=== PATIENT | male | born 1965 | race Caucasian/White ===

== ENCOUNTER 2017-03-25 20:25 | Inpatient (IN) | payer BC ==
[2017-03-25] MEDS ORDERED: TYLENOL 325 MG PO STA (21:12)
[2017-03-25] MEDS ORDERED: Sodium Chloride 0.9% 1000 ML 1,000 ML IV STA (21:12)
[2017-03-25] MEDS ORDERED: PHARMACY DOSING REQUIRED: VANCOMYCIN IV ONE (21:12)
[2017-03-25] MEDS ORDERED: Merrem 1 GM 1 G in Sodium Chloride 100ML MINI-BAG PLUS 100 ML IV STA (21:12)
[2017-03-25] MEDS ORDERED: SUBLIMAZE 100 MCG/2 ML IV ONE (21:13)
--- NOTE | 2017-03-25 21:16 | ERPHSYRPT ---
- History of Present Illness Time Seen by Provider: 03/25/17 20:50 Source: patient, family () Patient Subjective Stated Complaint: stated chilliong after taking a shower tonight. pain in right lower leg. states hx cellulitis. painful when you touch it. Triage Nursing Assessment: alert and oriented with c/o fever since 1500 today. denies respiratory or urinary symptoms. right lower leg red and warm to touch painful on palpation. + pedal pulse present. Physician History: CC: fever/chills Hx: 51 y/o male diabetic patient of Dr Pearson. He has hx of cellulitis in the past. He started having chills and rigors at 3PM today. Now has fever. Aching and burning in the right leg with redness. No cough, urinary problems. He feels fatigue and tired. Some headache. No bites or wounds. Symptoms severe. Timing/Duration: today Severity: severe Allergies/Adverse Reactions: Penicillins Allergy (Verified 02/10/16 16:42) Home Medications: Aspirin 81 gm Chew [Baby Aspirin 81 mg Chew] 1 tab PO DAILY 11/06/15 [ History] Glimepiride 4 mg [Amaryl 4 mg] 1 tablet PO DAILY 11/06/15 [History] Metformin HCl 500 mg [Glucophage 500 MG] 2 tab PO BID 11/06/15 [History] Escitalopram Oxalate [Lexapro] 20 mg PO HS 11/10/15 [History] Glucosam/Chond/Collagen/Hyalur [Glucosamine Chondroitin Cap] 1,000 mg PO BID [History] Lisinopril/Hydrochlorothiazide [Lisinopril-Hctz 20-12.5 mg Tab] 1 tab PO DAILY 02/10/16 [History] Metoprolol Succinate 50 mg [Toprol Xl 50 MG] 1 tab PO DAILY 02/10/16 [ History] Hx Tetanus, Diphtheria Vaccination/Date Given: Yes Hx Influenza Vaccination/Date Given: No Hx Pneumococcal Vaccination/Date Given: No - Review of Systems Constitutional: Fever, Chills, Fatigue, Malaise, Weakness Eyes: No Symptoms Ears, Nose, & Throat: No Symptoms Respiratory: No Cough, No Dyspnea Cardiac: No Chest Pain Abdominal/Gastrointestinal: No Abdominal Pain, No Nausea, No Vomiting, No Diarrhea Genitourinary Symptoms: No Dysuria Musculoskeletal: No Back Pain, No Neck Pain Skin: Cellulitis (right lower leg) Neurological: Headache, No Focal Weakness, No Parasthesia All Other Systems: Reviewed and Negative - Past Medical History Pertinent Past Medical History: Yes Neurological History: No Pertinent History ENT History: No Pertinent History Cardiac History: Hypertension Respiratory History: Sleep Apnea Endocrine Medical History: Diabetes Type II Musculoskeletal History: No Pertinent History GI Medical History: No Pertinent History History: No Pertinent History Psycho-Social History: No Pertinent History Male Reproductive Disorders: No Pertinent History Other Medical History: hx cellulitis in BLE - Past Surgical History Past Surgical History: Yes Neuro Surgical History: No Pertinent History Cardiac: Cardiac Catheterization Respiratory: No Pertinent History Gastrointestinal: No Pertinent History Genitourinary: No Pertinent History Musculoskeletal: No Pertinent History Male Surgical History: No Pertinent History - Social History Smoking Status: Never smoker Exposure to second hand smoke: No Drug Use: none Patient Lives Alone: No - Nursing Vital Signs Nursing Vital Signs: Initial Vital Signs Temperature 102.6 F 03/25/17 20:47 Pulse Rate 100 H 03/25/17 20:47 Respiratory Rate 18 03/25/17 20:47 Blood Pressure 154/79 03/25/17 20:47 O2 Sat by Pulse Oximetry 97 03/25/17 20:47 Pain Scale Pain Intensity 6 - Physical Exam General Appearance: alert Eye Exam: PERRL/EOMI Ears, Nose, Throat Exam: normal ENT inspection, moist mucous membranes Neck Exam: normal inspection, non-tender, supple Respiratory Exam: normal breath sounds, lungs clear Cardiovascular Exam: regular rate/rhythm Gastrointestinal/Abdomen Exam: soft, No tenderness, No distention Male Genitalia Exam: normal genitalia Back Exam: normal inspection, normal range of motion Extremity Exam: other (redness right lower leg with some tenderness) Neurologic Exam: alert, oriented x 3, cooperative, sensation nml, No motor deficits Skin Exam: warm, dry, other (cellulitis right leg) SpO2 Interpretation: normal SpO2: 97 Oxygen Delivery: Room Air - Course Nursing assessment & vital signs reviewed: Yes - Radiology Exams cxr X-ray Interpretation: Reviewed by me, Negative, No Pneumonia Ordered Tests: Active Orders 24 hr Category Date Time Status Manager Style STAT Care 03/25/17 21:07 Active Clean Catch Urine Specimen STAT Care 03/25/17 21:07 Active Pulse Oximetry (ED) STAT Care 03/25/17 21:07 Active Rectal Temperature STAT Care 03/25/17 21:12 Active Saline Lock STAT Care 03/25/17 21:07 Active CHEST 1 VIEW (PORTABLE) Stat Exams 03/25/17 21:07 Taken BLOOD CULTURE Stat Lab 03/25/17 21:24 Received CBC W DIFF Stat Lab 03/25/17 21:00 Completed CK-Creatinine Phosphokinase Stat Lab 03/25/17 21:00 Completed CMP Stat Lab 03/25/17 21:00 Completed CULTURE,URINE Stat Lab 03/25/17 21:45 Received Lactic Acid Stat Lab 03/25/17 21:22 Results PROTIME WITH INR Stat Lab 03/25/17 21:00 Completed PTT Stat Lab 03/25/17 21:00 Completed UA W/ MICROSCOPIC Stat Lab 03/25/17 21:45 Completed VENOUS BLOOD GAS Stat Lab 03/25/17 21:22 Completed Medication Summary Generic Name Dose Route Start Last Admin Trade Name Freq PRN Reason Stop Dose Admin Sodium Chloride 1,000 mls @ 999 mls/hr 03/25/17 21:12 03/25/17 21:25 Sodium Chloride 0.9% 1000 Ml IV 03/25/17 22:12 999 mls/hr .Q1H1M STA Administration Sodium Chloride 1,000 mls @ 999 mls/hr 03/25/17 21:45 03/25/17 21:54 Sodium Chloride 0.9% 1000 Ml IV 03/25/17 23:45 999 mls/hr .Q1H1M THANG Administration Lactated Ringer's 1,000 mls @ 999 mls/hr 03/25/17 22:00 Lactated Ringers IV 03/26/17 01:00 .Q1H1M THANG Vancomycin HCl 250 mls @ 250 mls/hr 03/25/17 22:00 Vancomycin 1gm/ Ns 250ml IV 03/25/17 23:59 Q1H THANG Discontinued Medications Generic Name Dose Route Start Last Admin Trade Name Freq PRN Reason Stop Dose Admin Acetaminophen 975 mg 03/25/17 21:12 03/25/17 21:26 Tylenol 325 Mg PO 03/25/17 21:13 975 mg STAT STA Administration Acetaminophen Confirm 03/25/17 21:19 Tylenol 325 Mg Administered 03/25/17 21:20 Dose 975 mg .ROUTE .STK-MED ONE Fentanyl Citrate 50 mcg 03/25/17 21:13 03/25/17 21:26 Sublimaze 100 Mcg/2 Ml IV 03/25/17 21:14 50 mcg STAT ONE Administration Fentanyl Citrate Confirm 03/25/17 21:19 Sublimaze 100 Mcg/2 Ml Administered 03/25/17 21:20 Dose 100 mcg .ROUTE .STK-MED ONE Hydromorphone HCl 1 mg 03/25/17 21:59 Hydromorphone 1 Mg/Ml Ampule IV 03/25/17 22:00 STAT ONE Meropenem 1 g/ Sodium Chloride 100 mls @ 200 mls/hr 03/25/17 21:12 03/25/17 21:26 IV 03/25/17 21:41 200 mls/hr STAT STA Administration Sodium Chloride Confirm 03/25/17 21:19 Sodium Chloride 0.9% 1000 Ml Administered 03/25/17 21:20 Dose 1,000 mls @ ud .ROUTE .STK-MED ONE Sodium Chloride Confirm 03/25/17 21:20 Sodium Chloride 0.9% 100 Ml Ivpb Administered 03/25/17 21:21 Dose 100 mls @ ud IV .STK-MED ONE Insulin Aspart 10 unit 03/25/17 21:53 Novolog Insulin SQ 03/25/17 21:54 STAT ONE Meropenem Confirm 03/25/17 21:19 Merrem 1 Gm Administered 03/25/17 21:20 Dose 1 g IV .STK-MED ONE Non-Formulary Medication 1 each 03/25/17 21:12 Pharmacy Dosing Required: Vancomycin IV 03/25/17 21:13 STAT ONE Lab/Rad Data: Laboratory Result Diagrams 03/25/17 21:00 03/25/17 21:00 Laboratory Results 03/25/17 03/25/17 03/25/17 Range/Units 21:45 21:22 21:22 WBC (4.0-10.5) K/mm3 RBC (4.1-5.6) M/mm3 Hgb (12.5-18.0) gm/dl Hct (42-50) % MCV (78-100) fl MCH (26-32) pg MCHC (32-36) g/dl RDW (11.5-14.0) % Plt Count (150-450) K/mm3 MPV (6-9.5) fl Gran % (36.0-66.0) % Lymphocytes % (24.0-44.0) % Monocytes % (0.0-12.0) % Eosinophils % (0.00-5.0) % Basophils % (0.0-0.4) % Basophils # (0-0.4) INR (0.8-3.0) APTT (24.1-36.1) SECONDS VBG pH 7.37 (7.32-7.42) VBG pCO2 at Pat Temp 40 L (42-55) mm/Hg VBG pO2 at Pat Temp 32 (25-40) mm/Hg VBG HCO3 23.1 (22-28) meq/L VBG O2 Sat (Andrés) 66.8 L (95-100) VBG Base Excess -2.0 (-2.0-2.0) VBG Hemoglobin 16.7 VBG Carboxyhemoglobin 1.5 (0.0-6.9) % T HGB POC Potassium 4.0 (3.5-5.1) Sodium (136-145) mEq/L Potassium (3.5-5.1) mEq/L Chloride (98-107) mEq/L Carbon Dioxide (21-32) mEq/L Anion Gap (5-15) MEQ/L BUN (9-20) mg/dL Creatinine (0.55-1.30) mg/dl Estimated GFR ML/MIN Glucose (70-110) MG/DL Lactic Acid 4.4 H (0.4-2.0) Calcium (8.5-10.1) mg/dL Total Bilirubin (0.2-1.0) mg/dL AST (15-37) U/L ALT (12-78) U/L Alkaline Phosphatase (46-116) U/L Creatine Kinase (39-308) U/L Serum Total Protein (6.4-8.2) gm/dL Albumin (3.4-5.0) g/dL Ur Collection Type VOID Urine Color LT.YELLOW (YELLOW) Urine Appearance CLEAR (CLEAR) Urine pH 5.0 (5-6) Ur Specific [place] 1.010 (1.005-1.025) Urine Protein TRACE (Negative) Urine Ketones NEGATIVE (NEGATIVE) Urine Blood 50 (0-5) Dre/ul Urine Nitrite NEGATIVE (NEGATIVE) Urine Bilirubin NEGATIVE (NEGATIVE) Urine Urobilinogen NORMAL (0-1) mg/dL Ur Leukocyte Esterase 1+ (NEGATIVE) Urine Microscopic RBC 2-5 (0-2) /HPF Urine Microscopic WBC 2-5 (0-5) /HPF Ur Epithelial Cells FEW (FEW) /HPF Urine Bacteria RARE (NEGATIVE) /HPF Urine Sperm PRESENT (NEGATIVE) /HPF Urine Glucose 1000 (NEGATIVE) mg/dL Specimen Received 03/25/17 2145 03/25/17 03/25/17 03/25/17 Range/Units 21:00 21:00 21:00 WBC (4.0-10.5) K/mm3 RBC (4.1-5.6) M/mm3 Hgb (12.5-18.0) gm/dl Hct (42-50) % MCV (78-100) fl MCH (26-32) pg MCHC (32-36) g/dl RDW (11.5-14.0) % Plt Count (150-450) K/mm3 MPV (6-9.5) fl Gran % (36.0-66.0) % Lymphocytes % (24.0-44.0) % Monocytes % (0.0-12.0) % Eosinophils % (0.00-5.0) % Basophils % (0.0-0.4) % Basophils # (0-0.4) INR 1.04 (0.8-3.0) APTT 31.2 (24.1-36.1) SECONDS VBG pH (7.32-7.42) VBG pCO2 at Pat Temp (42-55) mm/Hg VBG pO2 at Pat Temp (25-40) mm/Hg VBG HCO3 (22-28) meq/L VBG O2 Sat (Andrés) (95-100) VBG Base Excess (-2.0-2.0) VBG Hemoglobin VBG Carboxyhemoglobin (0.0-6.9) % T HGB POC Potassium (3.5-5.1) Sodium 135 L (136-145) mEq/L Potassium 3.6 (3.5-5.1) mEq/L Chloride 100 (98-107) mEq/L Carbon Dioxide 22.3 (21-32) mEq/L Anion Gap 16.2 H (5-15) MEQ/L BUN 20 (9-20) mg/dL Creatinine 1.40 H (0.55-1.30) mg/dl Estimated GFR 57 ML/MIN Glucose 368 H (70-110) MG/DL Lactic Acid (0.4-2.0) Calcium 8.7 (8.5-10.1) mg/dL Total Bilirubin 0.40 (0.2-1.0) mg/dL AST 15 (15-37) U/L ALT 19 (12-78) U/L Alkaline Phosphatase 100 (46-116) U/L Creatine Kinase 86 (39-308) U/L Serum Total Protein 6.9 (6.4-8.2) gm/dL Albumin 3.6 (3.4-5.0) g/dL Ur Collection Type Urine Color (YELLOW) Urine Appearance (CLEAR) Urine pH (5-6) Ur Specific [place] (1.005-1.025) Urine Protein (Negative) Urine Ketones (NEGATIVE) Urine Blood (0-5) Dre/ul Urine Nitrite (NEGATIVE) Urine Bilirubin (NEGATIVE) Urine Urobilinogen (0-1) mg/dL Ur Leukocyte Esterase (NEGATIVE) Urine Microscopic RBC (0-2) /HPF Urine Microscopic WBC (0-5) /HPF Ur Epithelial Cells (FEW) /HPF Urine Bacteria (NEGATIVE) /HPF Urine Sperm (NEGATIVE) /HPF Urine Glucose (NEGATIVE) mg/dL Specimen Received 03/25/17 Range/Units 21:00 WBC 18.5 H (4.0-10.5) K/mm3 RBC 5.31 (4.1-5.6) M/mm3 Hgb 15.5 (12.5-18.0) gm/dl Hct 47.9 (42-50) % MCV 90.2 (78-100) fl MCH 29.2 (26-32) pg MCHC 32.4 (32-36) g/dl RDW 14.0 (11.5-14.0) % Plt Count 140 L (150-450) K/mm3 MPV 10.8 H (6-9.5) fl Gran % 90.8 H (36.0-66.0) % Lymphocytes % 4.3 L (24.0-44.0) % Monocytes % 4.4 (0.0-12.0) % Eosinophils % 0.2 (0.00-5.0) % Basophils % 0.3 (0.0-0.4) % Basophils # 0.05 (0-0.4) INR (0.8-3.0) APTT (24.1-36.1) SECONDS VBG pH (7.32-7.42) VBG pCO2 at Pat Temp (42-55) mm/Hg VBG pO2 at Pat Temp (25-40) mm/Hg VBG HCO3 (22-28) meq/L VBG O2 Sat (Andrés) (95-100) VBG Base Excess (-2.0-2.0) VBG Hemoglobin VBG Carboxyhemoglobin (0.0-6.9) % T HGB POC Potassium (3.5-5.1) Sodium (136-145) mEq/L Potassium (3.5-5.1) mEq/L Chloride (98-107) mEq/L Carbon Dioxide (21-32) mEq/L Anion Gap (5-15) MEQ/L BUN (9-20) mg/dL Creatinine (0.55-1.30) mg/dl Estimated GFR ML/MIN Glucose (70-110) MG/DL Lactic Acid (0.4-2.0) Calcium (8.5-10.1) mg/dL Total Bilirubin (0.2-1.0) mg/dL AST (15-37) U/L ALT (12-78) U/L Alkaline Phosphatase (46-116) U/L Creatine Kinase (39-308) U/L Serum Total Protein (6.4-8.2) gm/dL Albumin (3.4-5.0) g/dL Ur Collection Type Urine Color (YELLOW) Urine Appearance (CLEAR) Urine pH (5-6) Ur Specific [place] (1.005-1.025) Urine Protein (Negative) Urine Ketones (NEGATIVE) Urine Blood (0-5) Dre/ul Urine Nitrite (NEGATIVE) Urine Bilirubin (NEGATIVE) Urine Urobilinogen (0-1) mg/dL Ur Leukocyte Esterase (NEGATIVE) Urine Microscopic RBC (0-2) /HPF Urine Microscopic WBC (0-5) /HPF Ur Epithelial Cells (FEW) /HPF Urine Bacteria (NEGATIVE) /HPF Urine Sperm (NEGATIVE) /HPF Urine Glucose (NEGATIVE) mg/dL Specimen Received - Progress Progress Note: 03/25/17 22:04 Pt has sepsis and cellulitis right leg. The redness is sore but not worsening on recheck inspection at this time. He is receiving 30ml/kg crystalloid IVF bolus for sepsis with lactic acid over 4. Explained situation and plan to pt and . Merrem and Vanco given. Cultures given. Called Dr Naqvi for [place] and will admit to IP ICU. Discussed with .: Driss Will see patient in: hospital (full admit) Counseled pt/family regarding: lab results, diagnosis, need for follow-up, rad results - Departure Time of Disposition: 22:06 Departure Disposition: In-patient Admission (ICU Dr Pearson) Clinical Impression: Cellulitis of right leg, Type 2 diabetes mellitus Sepsis Qualifiers: Sepsis type: sepsis due to unspecified organism Qualified Code(s): A41.9 - Sepsis, unspecified organism Condition: Serious Critical Care Time: Yes Critical Care Time(excluding separately billable procedures): 30-74 minutes Referrals: GERALDINE PEARSON MD [Primary Care Provider] -
[2017-03-25] MEDS ORDERED: Merrem 1 GM IV ONE (21:19)
[2017-03-25] MEDS ORDERED: Sodium Chloride 0.9% 1000 ML 1,000 ML ONE (21:19)
[2017-03-25] MEDS ORDERED: TYLENOL 325 MG ONE (21:19)
[2017-03-25] MEDS ORDERED: SUBLIMAZE 100 MCG/2 ML ONE (21:19)
[2017-03-25] MEDS ORDERED: Sodium Chloride 0.9% 100 ML IVPB 100 ML IV ONE (21:20)
[2017-03-25 21:28] LABS: Lactic Acid 4.4 (0.4-2.0)
[2017-03-25 21:28] LABS: BASOPHIL % 0.3 % (0.0-0.4); Eosinophil % 0.2 % (0.00-5.0); Granulocytes % 90.8 % (36.0-66.0); Lymphocytes % 4.3 % (24.0-44.0); Mean Cell Volume 90.2 fl (78-100); Mean Corpuscular Hemoglobin 29.2 pg (26-32); Mean Platelet Volume 10.8 fl (6-9.5); Monocytes % 4.4 % (0.0-12.0); Platelet Count 140 K/mm3 (150-450); Red Blood Count 5.31 M/mm3 (4.1-5.6); White Blood Count 18.5 K/mm3 (4.0-10.5)
[2017-03-25 21:29] LABS: VBG CARBOXYHEMOGLOBIN 1.5 % T HGB (0.0-6.9); VBG HCO3- 23.1 meq/L (22-28); VBG HEMOGLOBIN 16.7; VBG O2 SATURATION 66.8 (95-100); VBG pH 7.37 (7.32-7.42)
[2017-03-25] MEDS ORDERED: Sodium Chloride 0.9% 1000 ML 2,000 ML ONE (21:42)
[2017-03-25 21:48] LABS: ALBUMIN 3.6 g/dL (3.4-5.0); ANION GAP 16.2 MEQ/L (5-15); BILIRUBIN,TOTAL 0.4 mg/dL (0.2-1.0); Carbon Dioxide 22.3 mEq/L (21-32); Potassium 3.6 mEq/L (3.5-5.1); Total Protein 6.9 gm/dL (6.4-8.2)
[2017-03-25 21:49] LABS: PTT 31.2 SECONDS (24.1-36.1)
[2017-03-25 21:50] LABS: INR 1.04 (0.8-3.0); PROTIME 11.6 SECONDS (8.83-12.87)
[2017-03-25] MEDS ORDERED: NovoLOG Insulin SQ ONE (21:53)
[2017-03-25] MEDS: Sodium Chloride 0.9% 1000 ML 1,000 ML IV SCH ×2 (21:54→22:33)
[2017-03-25 21:56] LABS: Bacteria RARE /HPF (NEGATIVE); Bilirubin NEGATIVE (NEGATIVE); Blood 50 Ery/ul (0-5); COMPLETE URINE MICROSCOPIC? YES; Collection Type VOID; Epithelial Cells FEW /HPF (FEW); Glucose 1000 mg/dL (NEGATIVE); Leukocyte Esterase 1+ (NEGATIVE)
[2017-03-25] MEDS ORDERED: Lactated Ringers 3,000 ML IV ONE (21:56)
[2017-03-25] MEDS ORDERED: Hydromorphone 1 mg/ml Ampule IV ONE (21:59)
[2017-03-25] MEDS ORDERED: Vancomycin 1GM/ Ns 250ML*** 500 ML IV ONE (22:02)
[2017-03-25] MEDS ORDERED: NovoLOG Insulin ONE (22:03)
[2017-03-25] MEDS: Vancomycin 1GM/ Ns 250ML*** 250 ML IV SCH (22:06)
[2017-03-25] MEDS ORDERED: Hydromorphone 1 mg/ml Ampule ONE (22:32)
[2017-03-25] MEDS: Lactated Ringers 1,000 ML IV SCH ×3 (22:40→23:22)
[2017-03-26 00:02] LABS: Lactic Acid 2.1 (0.4-2.0)
[2017-03-26] MEDS ORDERED: DILAUDID 2 MG INJECTION IV PRN (00:35)
[2017-03-26] MEDS: Vancomycin 1GM/ Ns 250ML*** 250 ML IV SCH ×2 (01:10→03:01)
[2017-03-26] MEDS: PHARMACY DOSING REQUIRED: VANCOMYCIN IV ONE ×2 (03:03→23:48)
[2017-03-26] MEDS: Sodium Chloride 0.9% W/ 20 mEq KCl/LITER 1,000 ML IV SCH ×2 (03:06→20:12)
[2017-03-26] MEDS: TYLENOL 325 MG PO PRN ×2 (04:03→17:16)
[2017-03-26 05:43] LABS: BASOPHIL % 0.2 % (0.0-0.4); Granulocytes % 90.7 % (36.0-66.0); Lymphocytes % 5.1 % (24.0-44.0); Mean Corpuscular Hemoglobin 29.2 pg (26-32); Mean Platelet Volume 10.7 fl (6-9.5); Platelet Count 128 K/mm3 (150-450); Red Cell Distribution Width 14.2 % (11.5-14.0); White Blood Count 17.8 K/mm3 (4.0-10.5)
[2017-03-26 05:49] LABS: ALBUMIN 3.2 g/dL (3.4-5.0); ALKALINE PHOSPHATASE 84 U/L (46-116); ANION GAP 13.9 MEQ/L (5-15); BLOOD UREA NITROGEN 13 mg/dL (9-20); CHLORIDE 104 mEq/L (98-107); Carbon Dioxide 25.3 mEq/L (21-32); Glucose 202 MG/DL (70-110); Potassium 3.5 mEq/L (3.5-5.1); SGOT/AST 13 U/L (15-37); SGPT/ALT 15 U/L (12-78); SODIUM 140 mEq/L (136-145); Total Protein 5.9 gm/dL (6.4-8.2)
[2017-03-26] MEDS ORDERED: MOTRIN 400 MG PO ONE (06:30)
[2017-03-26] MEDS: Merrem 1 GM 1 G in Sodium Chloride 100ML MINI-BAG PLUS 100 ML IV SCH ×3 (07:05→22:00)
[2017-03-26] MEDS: VANCOCIN 1 GM VIAL*** 1.75 GM in Sodium Chloride 0.9% 500 ML 500 ML IV SCH ×3 (08:02→23:48)
[2017-03-26] MEDS ORDERED: Nitrostat 0.4 MG Tablet SL PRN (08:25)
--- NOTE | 2017-03-26 08:44 | PCM.HP ---
History of Present Illness - Chief Complaint Chief Complaint: cellulitis RLE, sepsis History of Present Illness: is a 51 year old male who is morbidly obese with type 2 diabetes. He came to the ER yesterday evening due to fever and acute onset of right lower extremity redness and pain. He denies any recent injury or inciting event. He has had recurrent cellulitis to the lower extremities in the past. He denies cough, UTI symptoms or other associated complaints. He was found to have a fever of 103 and elevated lactic acid in the ER, however he has not had any hypotension, his renal function is normal and he is tolerating po, sitting up and conversant. His right lower leg pain has improved already just being treated overnight for the cellulitis. - Review of Systems Constitutional: Fever, Chills Respiratory: No Cough, No Short Of Breath Cardiac: No Chest Pain, No Edema, No Syncope Abdominal/Gastrointestinal: No Abdominal Pain, No Nausea, No Vomiting, No Diarrhea Musculoskeletal: No Fall, No Injury, No Joint Redness Skin: Cellulitis Neurological: No Dizziness, No Focal Weakness, No Sensory Changes All Other Systems: Reviewed and Negative Medications & Allergies Home Medications: Home Medication List Aspirin 81 gm Chew [Baby Aspirin 81 mg Chew] 81 mg PO QHS 11/06/15 [ History Confirmed 03/26/17] Glimepiride 4 mg [Amaryl 4 mg] 4 mg PO QHS 11/06/15 [History Confirmed 03/04] Metformin HCl 500 mg [Glucophage 500 MG] 1,000 mg PO BID 11/06/15 [ History Confirmed 03/26/17] Escitalopram Oxalate [Lexapro] 20 mg PO DAILY 11/10/15 [History Confirmed ] Glucosam/Chond/Collagen/Hyalur [Glucosamine Chondroitin Cap] 1,000 mg PO BID [History Confirmed 03/26/17] Lisinopril/Hydrochlorothiazide [Lisinopril-Hctz 20-12.5 mg Tab] 12.5 mg PO BID 02/10/16 [History Confirmed 03/26/17] Amlodipine Besylate 5 mg [Norvasc 5 mg] 5 mg PO BID 03/26/17 [History Confirmed 03/26/17] Atorvastatin Calcium 40 mg PO QHS 03/26/17 [History Confirmed 03/26/17] Empagliflozin [Jardiance] 10 mg PO QHS 03/26/17 [History Confirmed 03/26/17] Isosorbide Mononitrate [Isosorbide Mononitrate ER] 60 mg PO QHS 03/26/17 [ History Confirmed 03/26/17] Metoprolol Succinate 50 mg PO QHS 03/26/17 [History Confirmed 03/26/17] Nitroglycerin 0.4 mg SL UD PRN 03/26/17 [History Confirmed 03/26/17] Ropinirole HCl 0.5 mg PO QHS 03/26/17 [History Confirmed 03/26/17] Allergies/Adverse Reactions: Allergies Allergy/AdvReac Type Severity Reaction Status Date / Time Penicillins Allergy Unknown Verified 03/26/17 00:36 - Past Medical History Past Medical History: Yes Neurological History: No Pertinent History ENT History: No Pertinent History Cardiac History: Angina, High Cholesterol, Hypertension Respiratory History: Sleep Apnea Endocrine Medical History: Diabetes Type II Musculoskelatal History: Other GI Medical History: No Pertinent History History: No Pertinent History Pyscho-Social History: Anxiety Male Reproductive Disorders: No Pertinent History Comment: chronic joint pain, restless leg syndrome, cellulitis BLE - Past Surgical History Past Surgical History: Yes Neuro Surgical History: No Pertinent History Cardiac History: Cardiac Catheterization Respiratory Surgery: No Pertinent History GI Surgical History: No Pertinent History Genitourinary Surgical Hx: No Pertinent History Musculskeletal Surgical Hx: No Pertinent History Male Surgical History: No Pertinent History Other Surgical History: heart catheterization appx 1 year ago in [place] revealed 70% blockage - Social History Smoking Status: Never smoker Exposure to second hand smoke: No Alcohol: Occasionally Drug Use: none - Physical Exam Vital Signs: Vital Signs - 24 hr Temp Pulse Resp BP BP Pulse Ox 03/26/17 06:00 100.9 F 90 22 98 03/26/17 04:00 101 F 99 H 14 138/62 98 03/26/17 02:00 99.3 F 95 H 14 125/65 96 03/26/17 01:30 72 18 97 03/26/17 00:05 99.3 F 91 H 24 117/56 98 03/25/17 23:18 78 18 116/74 100 03/25/17 22:41 102.5 F 98 H 20 111/70 94 L 03/25/17 22:06 97 03/25/17 22:03 102.7 F 102 H 20 104/52 94 L 03/25/17 21:19 103 F 03/25/17 21:18 103 F 98 H 20 150/99 98 03/25/17 21:16 98 03/25/17 20:47 102.6 F 100 H 18 154/79 97 General Appearance: no apparent distress, alert, obese Neurologic Exam: alert, oriented x 3, cooperative, normal mood/affect, nml cerebellar function, nml station & gait, sensation nml, No motor deficits Respiratory Exam: normal breath sounds, lungs clear, No respiratory distress Cardiovascular Exam: regular rate/rhythm, normal heart sounds, normal peripheral pulses Gastrointestinal/Abdomen Exam: soft, normal bowel sounds, No tenderness, No mass Skin Exam: other (right anterior lower leg with redness, warmth covering most of the anterior [place] region. no calf tenderness) Results - Labs Lab/Micro Results: Accuchecks Date 03/26/17 Date 03/26/17 Time 02:00 Time 02:00 Accucheck Value: 202 Accucheck Value: 166 Lab Results-Last 24 Hours 03/26/17 03/26/17 03/26/17 Range/Units 05:02 05:02 05:07 WBC 17.8 H (4.0-10.5) K/mm3 RBC 4.90 (4.1-5.6) M/mm3 Hgb 14.3 (12.5-18.0) gm/dl Hct 44.1 (42-50) % MCV 90.0 (78-100) fl MCH 29.2 (26-32) pg MCHC 32.4 (32-36) g/dl RDW 14.2 H (11.5-14.0) % Plt Count 128 L (150-450) K/mm3 MPV 10.7 H (6-9.5) fl Gran % 90.7 H (36.0-66.0) % Lymphocytes % 5.1 L (24.0-44.0) % Monocytes % 4.0 (0.0-12.0) % Eosinophils % 0.0 (0.00-5.0) % Basophils % 0.2 (0.0-0.4) % Basophils # 0.04 (0-0.4) Sodium 140 (136-145) mEq/L Potassium 3.5 (3.5-5.1) mEq/L Chloride 104 (98-107) mEq/L Carbon Dioxide 25.3 (21-32) mEq/L Anion Gap 13.9 (5-15) MEQ/L BUN 13 (9-20) mg/dL Creatinine 1.02 (0.55-1.30) mg/dl Estimated GFR > 60 ML/MIN Glucose 202 H (70-110) MG/DL Lactic Acid 1.3 (0.4-2.0) Calcium 8.3 L (8.5-10.1) mg/dL Total Bilirubin 0.70 (0.2-1.0) mg/dL AST 13 L (15-37) U/L ALT 15 (12-78) U/L Alkaline Phosphatase 84 (46-116) U/L Serum Total Protein 5.9 L (6.4-8.2) gm/dL Albumin 3.2 L (3.4-5.0) g/dL Accuchecks Date 03/26/17 Date 03/26/17 Time 02:00 Time 02:00 Accucheck Value: 202 Accucheck Value: 166 - Other Procedures and Tests Respiratory Therapy 03/26/17 01:41 BiPap/CPAP Assessment ROUTINE Assessment/Plan (1) Sepsis Current Visit: Yes Status: Acute Qualifiers: Sepsis type: sepsis due to unspecified organism Qualified Code(s): A41.9 - Sepsis, unspecified organism Assessment & Plan: patient ok to transfer to med/surg unit today. has been hemodynamically stable, has elevation of wbc on labs but other labs look good. (2) Cellulitis of right leg Current Visit: Yes Status: Acute Assessment & Plan: on vanc/meropenem due to poorly controlled diabetes needs polymicrobial coverage. Code(s): L03.115 - CELLULITIS OF RIGHT LOWER LIMB (3) Type 2 diabetes mellitus Current Visit: Yes Status: Acute Assessment & Plan: a1c was 9.4% on 03/20 plan to add basal insulin daily to current regimen and increase dose of jardiance on discharge.
--- NOTE | 2017-03-26 08:51 | XRAY ---
Indication: Sepsis. Comparison: November 13, 2015. Portable chest remains clear. Heart is not enlarged. Bony thorax intact. No new/acute findings. Impression: Stable nonacute chest.
[2017-03-26] MEDS: NORCO 5/325 MG PO PRN ×2 (09:03→18:19)
[2017-03-26] MEDS ORDERED: LISINOPRIL PO SCH (10:00)
[2017-03-26] MEDS ORDERED: Zestril 20 MG PO SCH (10:00)
[2017-03-26] MEDS ORDERED: hydroDIURIL 25 MG PO SCH (10:00)
[2017-03-26] MEDS: Pepcid 20 MG VIAL IV SCH ×2 (10:00→21:47)
[2017-03-26] MEDS ORDERED: NON-FORMULARY ITEM (Escitalopram Oxalate [Lexapro] 20 MG) PO SCH (10:00)
[2017-03-26] MEDS ORDERED: [UNRECOGNIZED DRUG - OTHER] PO SCH (10:00)
[2017-03-26] MEDS ORDERED: HYDROCHLOROTHIAZIDE PO SCH (10:00)
[2017-03-26] MEDS: Lexapro 10 MG PO SCH (10:03)
[2017-03-26] MEDS: NORVASC 5 MG PO SCH ×2 (10:03→21:47)
[2017-03-26] MEDS: ENOXAPARIN SODIUM SQ SCH (10:04)
[2017-03-26] MEDS: NovoLOG Insulin SQ PRN ×3 (12:10→22:21)
[2017-03-26] MEDS: Imdur 60MG PO SCH (21:47)
[2017-03-26] MEDS: hydroDIURIL 25 MG PO SCH (21:47)
[2017-03-26] MEDS: Zestril 20 MG PO SCH (21:47)
[2017-03-26] MEDS: Toprol Xl 50 MG PO SCH (21:49)
[2017-03-26] MEDS: Requip 0.5 MG PO SCH (21:49)
[2017-03-26] MEDS: ECOTRIN 81 MG PO SCH (21:49)
[2017-03-26] MEDS ORDERED: BABY ASPIRIN 81 MG CHEW PO SCH (22:00)
[2017-03-27] MEDS: NORCO 5/325 MG PO PRN ×3 (04:31→13:28)
[2017-03-27] MEDS: Merrem 1 GM 1 G in Sodium Chloride 100ML MINI-BAG PLUS 100 ML IV SCH ×3 (06:15→21:31)
[2017-03-27 06:37] LABS: BASOPHIL % 0.2 % (0.0-0.4); Eosinophil % 1.4 % (0.00-5.0); Granulocytes % 77.1 % (36.0-66.0); Lymphocytes % 13.2 % (24.0-44.0); Mean Cell Volume 90.7 fl (78-100); Mean Corpuscular Hemoglobin 29.4 pg (26-32); Mean Platelet Volume 10.2 fl (6-9.5); Monocytes % 8.1 % (0.0-12.0); Platelet Count 114 K/mm3 (150-450); Red Blood Count 4.53 M/mm3 (4.1-5.6); White Blood Count 12.5 K/mm3 (4.0-10.5)
[2017-03-27 07:25] LABS: ALBUMIN 2.7 g/dL (3.4-5.0); ALKALINE PHOSPHATASE 74 U/L (46-116); ANION GAP 16.4 MEQ/L (5-15); BLOOD UREA NITROGEN 12 mg/dL (9-20); CHLORIDE 102 mEq/L (98-107); Carbon Dioxide 22.2 mEq/L (21-32); Glucose 150 MG/DL (70-110); Potassium 3.5 mEq/L (3.5-5.1); SGOT/AST 18 U/L (15-37); SGPT/ALT 20 U/L (12-78); SODIUM 137 mEq/L (136-145); Total Protein 6.1 gm/dL (6.4-8.2)
[2017-03-27] MEDS ORDERED: TROUGH DRUG LEVELS IJ ONE (07:30)
[2017-03-27] MEDS: VANCOCIN 1 GM VIAL*** 1.75 GM in Sodium Chloride 0.9% 500 ML 500 ML IV SCH ×3 (08:09→23:23)
[2017-03-27] MEDS: Lantus Insulin SQ SCH (08:10)
[2017-03-27] MEDS ORDERED: Lactated Ringers 1,000 ML IV ONE (08:11)
--- NOTE | 2017-03-27 08:28 | PCM.NOTE ---
Date and Time: 03/27/17822 Subjective Assessment: Pt denies pain currently but RLE is sore posteriorly at times; has appetite for the first time this morning. Overall feeling better than yesterday. - Review of Systems Constitutional: No Fever (last temp 0600 yesterday ) Skin: Cellulitis Objective Exam General Appearance: no apparent distress, alert Neurologic Exam: oriented x 3, cooperative Skin Exam: warm, dry Respiratory Exam: normal breath sounds, lungs clear, No crackles/rales, No rhonchi, No wheezing Cardiovascular Exam: regular rate/rhythm, normal heart sounds, No murmur Extremity Exam: other (RLE with bright red erythema and warmth, decreased per marked lines proximally and distally. generalized edema RLE. no exudate.) OBJECTIVE DATA Vital Signs: Vital Signs - 24 hr Temp Pulse Resp BP Pulse Ox 03/27/17 05:50 97.3 F 81 18 120/60 92 L 03/27/17 04:30 98.5 F 76 18 114/54 96 03/27/17 00:00 98.1 F 77 19 124/68 96 03/26/17 19:45 98.2 F 81 18 138/64 94 L 03/26/17 15:53 98.3 F 86 18 169/79 100 03/26/17 12:00 98.8 F 82 13 147/74 98 Pain Assessment - Last Documented Pain Intensity 2 Pain Scale Used 0-10 Pain Scale Intake and Output: Intake & Output 03/24/17 03/25/17 03/26/17 03/27/17 11:59 11:59 11:59 11:59 Intake Total 6996 2523 Output Total 1200 1100 Balance 5796 1423 Weight 178.8 kg 130.771 kg Lab Results: Accuchecks Date 03/27/17 Date 03/26/17 Date 03/26/17 Time 07:30 Time 16:30 Accucheck Value: 134 Accucheck Value: 192 Accucheck Value: 326 Accucheck Value: 154 Lab Results-Last 24 Hours 03/27/17 03/27/17 03/27/17 Range/Units 06:20 06:20 07:27 WBC 12.5 H (4.0-10.5) K/mm3 RBC 4.53 (4.1-5.6) M/mm3 Hgb 13.3 (12.5-18.0) gm/dl Hct 41.1 L (42-50) % MCV 90.7 (78-100) fl MCH 29.4 (26-32) pg MCHC 32.4 (32-36) g/dl RDW 14.0 (11.5-14.0) % Plt Count 114 L (150-450) K/mm3 MPV 10.2 H (6-9.5) fl Gran % 77.1 H (36.0-66.0) % Lymphocytes % 13.2 L (24.0-44.0) % Monocytes % 8.1 (0.0-12.0) % Eosinophils % 1.4 (0.00-5.0) % Basophils % 0.2 (0.0-0.4) % Basophils # 0.03 (0-0.4) Sodium 137 (136-145) mEq/L Potassium 3.5 (3.5-5.1) mEq/L Chloride 102 (98-107) mEq/L Carbon Dioxide 22.2 (21-32) mEq/L Anion Gap 16.4 H (5-15) MEQ/L BUN 12 (9-20) mg/dL Creatinine 0.81 (0.55-1.30) mg/dl Estimated GFR > 60 ML/MIN Glucose 150 H (70-110) MG/DL Calcium 8.3 L (8.5-10.1) mg/dL Total Bilirubin 0.70 (0.2-1.0) mg/dL AST 18 (15-37) U/L ALT 20 (12-78) U/L Alkaline Phosphatase 74 (46-116) U/L Serum Total Protein 6.1 L (6.4-8.2) gm/dL Albumin 2.7 L (3.4-5.0) g/dL Vancomycin Trough 13.9 (10-20) UG/ML Multi-Disciplinary Progress Notes: Multi-Disciplinary Progress Notes 03/26/17 09:21 Pharmacy Note by CREDIT CASHIER,PHARM Patient presents with sepsis and RLL cellulitis. Pharmacy to dose vancomycin. Patient received 2 gram loading dose upon arrival. Maintenance dose 1.75 grams q8h (weight: 394lbs SCr 1.02) initiated 03/26 @ 0800. Trough to be checked 03/27 @ 0730 (30 min prior to 4th dose). Thank you! Sandra, manager clinical pharmacy Initialized on 03/26/17 09:21 - END OF NOTE Assessment/Plan (1) Cellulitis of right leg Current Visit: Yes Status: Acute Assessment & Plan: On Vancomycin and merropenem, cellulitis advanced very quickly prior to admission but is responding to antibiotics readily. He is overall feeling better. Will d/c the dilaudid prn and give po pain meds as needed. Code(s): L03.115 - CELLULITIS OF RIGHT LOWER LIMB (2) Type 2 diabetes, uncontrolled, with cellulitis of foot Current Visit: Yes Status: Chronic Assessment & Plan: BS 134-326 here. Observe as his diet increases. Code(s): E11.628 - TYPE 2 DIABETES MELLITUS WITH OTHER SKIN COMPLICATIONS; E11.65 - TYPE 2 DIABETES MELLITUS WITH HYPERGLYCEMIA; L03.119 - CELLULITIS OF UNSPECIFIED PART OF LIMB
[2017-03-27] MEDS: Sodium Chloride 0.9% W/ 20 mEq KCl/LITER 1,000 ML IV SCH ×2 (08:41→13:29)
[2017-03-27] MEDS: hydroDIURIL 25 MG PO SCH ×2 (10:08→21:28)
[2017-03-27] MEDS: Lexapro 10 MG PO SCH (10:08)
[2017-03-27] MEDS: NORVASC 5 MG PO SCH ×2 (10:08→21:29)
[2017-03-27] MEDS: ENOXAPARIN SODIUM SQ SCH (10:08)
[2017-03-27] MEDS: Zestril 20 MG PO SCH ×2 (10:08→21:28)
[2017-03-27] MEDS: Pepcid 20 MG VIAL IV SCH ×2 (13:02→21:29)
[2017-03-27] MEDS: NovoLOG Insulin SQ PRN ×3 (13:02→21:39)
[2017-03-27] MEDS: ECOTRIN 81 MG PO SCH (21:27)
[2017-03-27] MEDS: Requip 0.5 MG PO SCH (21:27)
[2017-03-27] MEDS: Toprol Xl 50 MG PO SCH (21:28)
[2017-03-27] MEDS: Imdur 60MG PO SCH (21:29)
[2017-03-28] MEDS: Merrem 1 GM 1 G in Sodium Chloride 100ML MINI-BAG PLUS 100 ML IV SCH ×3 (05:40→23:18)
[2017-03-28] MEDS: Lantus Insulin SQ SCH (07:46)
[2017-03-28] MEDS: VANCOCIN 1 GM VIAL*** 1.75 GM in Sodium Chloride 0.9% 500 ML 500 ML IV SCH ×2 (07:46→16:39)
--- NOTE | 2017-03-28 09:00 | PCM.NOTE ---
Date and Time: 03/28/17 0858 Subjective Assessment: doing much better, erythema improved on right leg. pain is much better. hasn't had a fever Objective Exam General Appearance: no apparent distress, alert Respiratory Exam: normal breath sounds, lungs clear, No respiratory distress Cardiovascular Exam: regular rate/rhythm, normal heart sounds Gastrointestinal/Abdomen Exam: soft, No tenderness, No mass Extremity Exam: other (erythema to right anterior [place], improved to upper aspect. swelling improving) OBJECTIVE DATA Vital Signs: Vital Signs - 24 hr Temp Pulse Resp BP Pulse Ox 03/28/17 07:22 98.5 F 61 18 117/65 95 03/28/17 03:24 97.6 F 69 14 133/60 97 03/28/17 00:00 98.7 F 70 15 115/58 91 L 03/27/17 21:00 98.6 F 69 18 116/63 95 03/27/17 16:55 98.5 F 65 18 115/54 95 03/27/17 11:49 98.3 F 66 18 116/62 94 L Pain Assessment - Last Documented Pain Intensity 0 Pain Scale Used 0-10 Pain Scale Intake and Output: Intake & Output 03/25/17 03/26/17 03/27/17 03/28/17 11:59 11:59 11:59 11:59 Intake Total 6996 2523 3298 Output Total 1200 1100 4300 Balance 5796 1423 -1002 Weight 178.8 kg 130.771 kg Lab Results: Accuchecks Date 03/27/17 Date 03/27/17 Date 03/27/17 Time 22:00 Time 16:30 Time 11:30 Accucheck Value: 288 Accucheck Value: 152 Accucheck Value: 178 Assessment/Plan (1) Sepsis Current Visit: Yes Status: Acute Qualifiers: Sepsis type: sepsis due to unspecified organism Qualified Code(s): A41.9 - Sepsis, unspecified organism Assessment & Plan: urine growing a gram + bug, awaiting c and s. treated for cellulitis as well (2) Cellulitis of right leg Current Visit: Yes Status: Acute Assessment & Plan: continue vanc and meropenem Code(s): L03.115 - CELLULITIS OF RIGHT LOWER LIMB (3) Type 2 diabetes mellitus Current Visit: Yes Status: Resolved
[2017-03-28] MEDS: Lexapro 10 MG PO SCH (10:39)
[2017-03-28] MEDS: ENOXAPARIN SODIUM SQ SCH (10:39)
[2017-03-28] MEDS: NORVASC 5 MG PO SCH ×2 (10:39→22:47)
[2017-03-28] MEDS: Pepcid 20 MG VIAL IV SCH ×2 (10:40→22:47)
[2017-03-28] MEDS: Zestril 20 MG PO SCH ×2 (10:40→22:47)
[2017-03-28] MEDS: hydroDIURIL 25 MG PO SCH ×2 (10:40→22:47)
[2017-03-28] MEDS: NovoLOG Insulin SQ PRN ×3 (11:40→22:45)
[2017-03-28] MEDS: Sodium Chloride 0.9% W/ 20 mEq KCl/LITER 1,000 ML IV SCH (14:17)
[2017-03-28] MEDS: Toprol Xl 50 MG PO SCH (22:47)
[2017-03-28] MEDS: Requip 0.5 MG PO SCH (22:47)
[2017-03-28] MEDS: Imdur 60MG PO SCH (22:47)
[2017-03-28] MEDS: ECOTRIN 81 MG PO SCH (22:47)
[2017-03-29] MEDS: VANCOCIN 1 GM VIAL*** 1.75 GM in Sodium Chloride 0.9% 500 ML 500 ML IV SCH ×4 (00:28→23:24)
[2017-03-29] MEDS: Merrem 1 GM 1 G in Sodium Chloride 100ML MINI-BAG PLUS 100 ML IV SCH ×3 (05:53→21:54)
[2017-03-29 06:21] LABS: BASOPHIL % 0.4 % (0.0-0.4); Eosinophil % 2.6 % (0.00-5.0); Granulocytes % 66.7 % (36.0-66.0); Lymphocytes % 20.4 % (24.0-44.0); Mean Cell Volume 89.6 fl (78-100); Mean Corpuscular Hemoglobin 29.3 pg (26-32); Mean Platelet Volume 10.8 fl (6-9.5); Monocytes % 9.9 % (0.0-12.0); Platelet Count 152 K/mm3 (150-450); Red Blood Count 4.61 M/mm3 (4.1-5.6); Red Cell Distribution Width 13.7 % (11.5-14.0); White Blood Count 7.7 K/mm3 (4.0-10.5)
[2017-03-29 06:32] LABS: ALBUMIN 2.8 g/dL (3.4-5.0); ALKALINE PHOSPHATASE 84 U/L (46-116); ANION GAP 9.8 MEQ/L (5-15); BLOOD UREA NITROGEN 10 mg/dL (9-20); CHLORIDE 102 mEq/L (98-107); Carbon Dioxide 30.8 mEq/L (21-32); Glucose 182 MG/DL (70-110); Potassium 3.6 mEq/L (3.5-5.1); SGOT/AST 14 U/L (15-37); SGPT/ALT 18 U/L (12-78); SODIUM 139 mEq/L (136-145); Total Protein 6.4 gm/dL (6.4-8.2)
[2017-03-29] MEDS: Lantus Insulin SQ SCH (07:39)
--- NOTE | 2017-03-29 08:01 | PCM.NOTE ---
Date and Time: 03/29/17 0759 Subjective Assessment: patient feels like redness worsened to right lower leg overnight. no new complaints Objective Exam General Appearance: no apparent distress, alert Respiratory Exam: normal breath sounds, lungs clear, No respiratory distress Cardiovascular Exam: regular rate/rhythm, normal heart sounds Gastrointestinal/Abdomen Exam: soft, No tenderness, No mass Extremity Exam: other (right lower leg with anterior erythema, warmth) OBJECTIVE DATA Vital Signs: Vital Signs - 24 hr Temp Pulse Resp BP Pulse Ox 03/29/17 06:58 98.5 F 70 22 132/64 97 03/29/17 04:00 97.9 F 68 16 132/69 93 L 03/28/17 23:54 98.5 F 63 17 151/82 95 03/28/17 19:47 98.4 F 73 16 129/74 94 L 03/28/17 16:00 98.0 F 62 18 165/77 99 03/28/17 11:37 98.6 F 66 18 155/80 97 Pain Assessment - Last Documented Pain Intensity 0 Pain Scale Used 0-10 Pain Scale Intake and Output: Intake & Output 03/26/17 03/27/17 03/28/17 03/29/17 11:59 11:59 11:59 11:59 Intake Total 6996 2523 3298 3275 Output Total 1200 1100 4300 Balance 5796 1423 -1002 3275 Weight 178.8 kg 161.479 kg 156.971 kg 176.357 kg Lab Results: Accuchecks Date 03/29/17 Date 03/29/17 Date 03/28/17 Date 03/28/17 Time 07:32 Time 22:00 Time 16:30 Time 11:30 Accucheck Value: 156 Accucheck Value: 281 Accucheck Value: 205 Accucheck Value: 193 Lab Results-Last 24 Hours 03/29/17 03/29/17 Range/Units 05:15 05:15 WBC 7.7 (4.0-10.5) K/mm3 RBC 4.61 (4.1-5.6) M/mm3 Hgb 13.5 (12.5-18.0) gm/dl Hct 41.3 L (42-50) % MCV 89.6 (78-100) fl MCH 29.3 (26-32) pg MCHC 32.7 (32-36) g/dl RDW 13.7 (11.5-14.0) % Plt Count 152 (150-450) K/mm3 MPV 10.8 H (6-9.5) fl Gran % 66.7 H (36.0-66.0) % Lymphocytes % 20.4 L (24.0-44.0) % Monocytes % 9.9 (0.0-12.0) % Eosinophils % 2.6 (0.00-5.0) % Basophils % 0.4 (0.0-0.4) % Basophils # 0.03 (0-0.4) Sodium 139 (136-145) mEq/L Potassium 3.6 (3.5-5.1) mEq/L Chloride 102 (98-107) mEq/L Carbon Dioxide 30.8 (21-32) mEq/L Anion Gap 9.8 (5-15) MEQ/L BUN 10 (9-20) mg/dL Creatinine 0.73 (0.55-1.30) mg/dl Estimated GFR > 60 ML/MIN Glucose 182 H (70-110) MG/DL Calcium 8.7 (8.5-10.1) mg/dL Total Bilirubin 0.60 (0.2-1.0) mg/dL AST 14 L (15-37) U/L ALT 18 (12-78) U/L Alkaline Phosphatase 84 (46-116) U/L Serum Total Protein 6.4 (6.4-8.2) gm/dL Albumin 2.8 L (3.4-5.0) g/dL Radiology Exams: Radiology Procedures Category Date Time Status PICC LINE PLACEMENT Routine Exams 03/29/17 Ordered Multi-Disciplinary Progress Notes: Multi-Disciplinary Progress Notes 03/28/17 09:45 (created 03/28/17 12:41) Case Management Note by Gracia Correa INDEPENDENT WITH ALL ADL'S. DECLINED NEEDS FOR DISCHARGE. WILL FOLLOW. Initialized on 03/28/17 12:41 - END OF NOTE Assessment/Plan (1) Sepsis Current Visit: Yes Status: Acute Qualifiers: Sepsis type: sepsis due to unspecified organism Qualified Code(s): A41.9 - Sepsis, unspecified organism (2) Cellulitis of right leg Current Visit: Yes Status: Acute Assessment & Plan: continue vanc/meropenem, will get a PICC line today Code(s): L03.115 - CELLULITIS OF RIGHT LOWER LIMB (3) Type 2 diabetes mellitus Current Visit: Yes Status: Resolved
[2017-03-29] MEDS: Lexapro 10 MG PO SCH (08:53)
[2017-03-29] MEDS: hydroDIURIL 25 MG PO SCH ×2 (08:53→21:46)
[2017-03-29] MEDS: ENOXAPARIN SODIUM SQ SCH (08:54)
[2017-03-29] MEDS: NORVASC 5 MG PO SCH ×2 (08:55→21:46)
[2017-03-29] MEDS: Zestril 20 MG PO SCH ×2 (08:55→21:46)
[2017-03-29] MEDS: Pepcid 20 MG VIAL IV SCH ×2 (08:55→21:50)
[2017-03-29] MEDS: Sodium Chloride 0.9% W/ 20 mEq KCl/LITER 1,000 ML IV SCH (08:57)
--- NOTE | 2017-03-29 10:52 | XRAY ---
Indication: Ultrasound guidance for PICC line placement. Initial sonographic imaging of the right upper extremity was performed for localization of patent veins. A patent basilic vein identified above the elbow. Ultrasound guidance was then used for PICC line insertion. Full PICC line insertion is reported separately.
--- NOTE | 2017-03-29 10:54 | XRAY ---
Indication: Long-term IV access and therapy for right leg infection. Informed consent obtained. Patient was placed on the fluoroscopic table in a supine position. Initial sonographic imaging of the right upper extremity was performed for localization of patent veins. The right upper extremity was then prepped and draped in sterile fashion. Tourniquet applied. 1% lidocaine plain used for local anesthesia. Using ultrasound guidance and a micropuncture needle, a basilic vein above the elbow was successfully percutaneously cannulized. A floppy tip 0.018 guidewire inserted. Tourniquet released. Needle was exchanged for a 5 [place] dilator peel-away sheath catheter. Ultimately a 5 [place] double-lumen PICC line was cut to length and inserted over a longer 0.018 guidewire with the tip positioned in the SVC using fluoroscopic guidance. Guidewire removed. Both ports flushed with heparinized saline. Catheter was secured. Postoperative instructions and orders given. Patient discharged in good condition. Impression: Technically successful right upper extremity PICC line placement using ultrasound and fluoroscopic guidance. No immediate complications. Catheter length 50 cm. Approximately 2 cc blood loss. 0.7 minute of fluoroscopy used.
[2017-03-29] MEDS: NovoLOG Insulin SQ PRN ×2 (15:51→21:54)
[2017-03-29] MEDS: ECOTRIN 81 MG PO SCH (21:46)
[2017-03-29] MEDS: Requip 0.5 MG PO SCH (21:46)
[2017-03-29] MEDS: Imdur 60MG PO SCH (21:46)
[2017-03-29] MEDS: Toprol Xl 50 MG PO SCH (21:46)
[2017-03-30] MEDS: Merrem 1 GM 1 G in Sodium Chloride 100ML MINI-BAG PLUS 100 ML IV SCH (05:32)
[2017-03-30] MEDS ORDERED: TROUGH DRUG LEVELS IJ ONE (07:30)
[2017-03-30] MEDS: NovoLOG Insulin SQ PRN ×2 (07:32→10:57)
[2017-03-30] MEDS: Lantus Insulin SQ SCH (07:37)
[2017-03-30 07:45] VITALS: O2SAT 97
[2017-03-30 07:52] LABS: Mean Cell Volume 88.9 fl (78-100); Mean Corpuscular Hemoglobin 29.5 pg (26-32); Mean Platelet Volume 9.7 fl (6-9.5); Platelet Count 154 K/mm3 (150-450); Red Blood Count 4.51 M/mm3 (4.1-5.6); Red Cell Distribution Width 13.5 % (11.5-14.0); White Blood Count 8.2 K/mm3 (4.0-10.5)
[2017-03-30 08:15] LABS: BAND 9 % (0.0-2.0); Basophil 1 % (0.0-1.0); Eosinophil 1 % (0.00-3.0); Metamyelocyte 1 %; Total Cells Counted 100
[2017-03-30 08:16] LABS: Platelet Estimate NORMAL (NORMAL)
[2017-03-30 08:57] LABS: ANION GAP 12.5 MEQ/L (5-15); BLOOD UREA NITROGEN 11 mg/dL (9-20); CHLORIDE 100 mEq/L (98-107); Carbon Dioxide 28.7 mEq/L (21-32); Glucose 213 MG/DL (70-110); Potassium 3.9 mEq/L (3.5-5.1); SODIUM 137 mEq/L (136-145)
--- NOTE | 2017-03-30 09:00 | PCM.DS ---
Discharge Summary Date of Admission: 03/26/17 00:06 Admitting Physician: GERALDINE PEARSON Consults: Consults on Case 03/26/17 18:56 Nutritional Consult ROUTINE Primary Care Provider: GERALDINE PEARSON Allergies Allergies Penicillins Allergy (Unknown, Verified 03/26/17 00:36) Hospital Summary - Hospital Course Hospital Course: patient was admitted with cellulitis to [facility], has cleared dramatically, still has some erythema and swelling to right lower lower leg. - Vitals & Intake/Output Vital Signs: Vital Signs Temperature 98.3 F 03/30/17 07:43 Pulse Rate 77 03/30/17 07:43 Respiratory Rate 18 03/30/17 07:43 Blood Pressure 147/83 03/30/17 07:43 O2 Sat by Pulse Oximetry 97 03/30/17 07:43 Intake & Output: Intake & Output 03/27/17 03/28/17 03/29/17 03/30/17 11:59 11:59 11:59 11:59 Intake Total 2523 3298 3275 4624 Output Total 1100 4300 0 Balance 1423 -1002 3275 4624 Weight 161.479 kg 156.971 kg 176.357 kg 176.266 kg - Lab Result Diagrams: 03/30/17 07:40 03/29/17 05:15 Lab Results-Last 24 Hrs: Accuchecks Date 03/30/17 Date 03/30/17 Date 03/29/17 Date 03/29/17 Time 07:41 Time 22:00 Time 15:51 Time 10:50 Accucheck Value: 221 Accucheck Value: 232 Accucheck Value: 206 Accucheck Value: 176 Lab Results-Last 24 Hours 03/30/17 03/30/17 Range/Units 07:40 07:40 WBC 8.2 (4.0-10.5) K/mm3 RBC 4.51 (4.1-5.6) M/mm3 Hgb 13.3 (12.5-18.0) gm/dl Hct 40.1 L (42-50) % MCV 88.9 (78-100) fl MCH 29.5 (26-32) pg MCHC 33.2 (32-36) g/dl RDW 13.5 (11.5-14.0) % Plt Count 154 (150-450) K/mm3 MPV 9.7 H (6-9.5) fl Segmented Neutrophils 60 (36.-66.) % Band Neutrophils 9 H (0.0-2.0) % Lymphocytes (Manual) 21 L (24-44) % Monocytes (Manual) 7 (0.0-12.0) % Eosinophils (Manual) 1 (0.00-3.0) % Basophils (Manual) 1 (0.0-1.0) % Metamyelocytes 1 % Differential Comment NORMAL Platelet Estimate NORMAL (NORMAL) Vancomycin Trough 16.7 (10-20) UG/ML Micro Results-Entire Visit: Accuchecks Date 03/30/17 Date 03/30/17 Date 03/29/17 Date 03/29/17 Time 07:41 Time 22:00 Time 15:51 Time 10:50 Accucheck Value: 221 Accucheck Value: 232 Accucheck Value: 206 Accucheck Value: 176 - Radiology Exams Ordered Rad Exams-Entire Visit: Radiology Procedures Category Date Time Status GUIDE FOR VASCULAR ACCESS [US] Routine Exams 03/29/17 Completed PICC LINE PLACEMENT Routine Exams 03/29/17 Completed - Procedures and Test Procedures and Tests throughout Hospitalization: Therapy Orders & Screens 03/26/17 01:41 BiPap/CPAP Assessment ROUTINE Comment: CPAP 14 PER HOME USE Discharge Exam General Appearance: no apparent distress, alert Respiratory Exam: normal breath sounds, lungs clear, No respiratory distress Cardiovascular Exam: regular rate/rhythm, normal heart sounds Gastrointestinal/Abdomen Exam: soft, No tenderness, No mass Extremity Exam: other (right lower leg with moderate erythema and warmth) Final Diagnosis/Problem List - Final Discharge Diagnosis/Problem (1) Sepsis Current Visit: Yes Status: Acute (2) Cellulitis of right leg Current Visit: Yes Status: Acute Assessment & Plan: send home today on IV vanc for 7 days at outpatient infusion (3) Type 2 diabetes mellitus Current Visit: Yes Status: Resolved - Discharge Disposition: Home, Self-Care Condition: Good Prescriptions: Continue Metformin HCl 500 mg [Glucophage 500 MG] 1,000 mg PO BID Aspirin 81 gm Chew [Baby Aspirin 81 mg Chew] 81 mg PO QHS Glimepiride 4 mg [Amaryl 4 mg] 4 mg PO QHS Escitalopram Oxalate [Lexapro] 20 mg PO DAILY Lisinopril/Hydrochlorothiazide [Lisinopril-Hctz 20-12.5 mg Tab] 12.5 mg PO BID Glucosam/Chond/Collagen/Hyalur [Glucosamine Chondroitin Cap] 1,000 mg PO BID Empagliflozin [Jardiance] 10 mg PO QHS Atorvastatin Calcium 40 mg PO QHS Metoprolol Succinate 50 mg PO QHS Isosorbide Mononitrate [Isosorbide Mononitrate ER] 60 mg PO QHS Amlodipine Besylate 5 mg [Norvasc 5 mg] 5 mg PO BID Nitroglycerin 0.4 mg SL UD PRN PRN Reason: Chest Pain Ropinirole HCl 0.5 mg PO QHS Additional Instructions: continue outpatient vanc in infusion center for 7 days, f/u with Heavenly Samuels next week in office Follow up with: CHELSY SAMUELS NP [NON-STAFF PHY W/O PRIVILEGES] - 1 Week Forms: Patient Portal Information
[2017-03-30] MEDS: VANCOCIN 1 GM VIAL*** 1.75 GM in Sodium Chloride 0.9% 500 ML 500 ML IV SCH (09:35)
[2017-03-30] MEDS: NORVASC 5 MG PO SCH (09:36)
[2017-03-30] MEDS: Lexapro 10 MG PO SCH (09:36)
[2017-03-30] MEDS: hydroDIURIL 25 MG PO SCH (09:36)
[2017-03-30] MEDS: Pepcid 20 MG VIAL IV SCH (09:36)
[2017-03-30] MEDS: Zestril 20 MG PO SCH (09:36)
[2017-03-30] MEDS: ENOXAPARIN SODIUM SQ SCH (09:40)
[2017-03-30] MEDS: NORCO 5/325 MG PO PRN (10:47)
--- NOTE | 2017-03-30 11:13 | XRAY ---
Indication: Right leg cellulitis. Two-dimensional sonogram and color Doppler imaging of the major venous vessels of the right leg was performed. Comparison: None No thrombus seen in the examined deep venous vessels of the right leg including greater saphenous vein. Veins demonstrate normal compressibility. Venous waveforms are normal with and without augmentation. Impression: Right leg negative for DVT.
[2017-03-30 12:23] VITALS: BP 134/87; PULSE 89
== END 2017-03-30 13:45 | disposition home or self-care (01) | DRG 872 ==
LOC: ED 20:25 → ICU 03-26 00:06 → MED SURG 03-26 13:37
PROVIDERS: ADMIT Family Medicine; ATTEND Family Medicine
DX: A41.9 Sepsis, unspecified organism (principal); L03.115 Cellulitis of right lower limb; E11.9 Type 2 diabetes mellitus without complications; M79.604 Pain in right leg; Z45.2 Encounter for adjustment and management of vascular access device; Z79.899 Other long term (current) drug therapy; Z79.84 Long term (current) use of oral hypoglycemic drugs
CPT/HCPCS: 36000; 36415; 36569; 71010; 76937; 77001; 80048; 80053; 80202; 81000; 82550; 82805; 82962; 83605; 85025; 85610; 85730; 87040; 87077; 87086; 93041; 93971; 94760; 96360; 96361; 96365; 96366; 96367; 96372; 96374; 96375; 99285; C1769; J1170; J1642; J1650; J3010; J3370; A9270-GY

== ENCOUNTER 2019-06-05 10:31 | Inpatient (IN) | payer BC ==
--- NOTE | 2019-06-05 10:35 | ERPHSYRPT ---
- History of Present Illness Time Seen by Provider: 06/05/19 10:34 Source: patient Exam Limitations: no limitations Physician History: 53 y/o morbidly obese diabetic white male with h/o htn, chronic venous stasis dz and recurrent bilat lower ext cellulitis presents with fever last pm of 101 F , n/v and generalized muscle aches. this am he noticed right lower leg redness. he feels he either he has the flu, cellulitis or both. he denies cp, denies soa , and denies abd pain. pt does not recall if he took anything for his fever. pt on eliquis. Timing/Duration: yesterday Cough Quality/Degree: no cough Possible Cause: occasional episodes Associated Symptoms: fever, chills, muscle aches, No chest pain/soreness, No cough Allergies/Adverse Reactions: Penicillins Allergy (Unknown, Verified 06/05/19 10:52) Home Medications: Aspirin 81 gm Chew [Baby Aspirin 81 mg Chew] 81 mg PO QHS 11/06/15 [ History] Metformin HCl 500 mg [Glucophage 500 MG] 1,000 mg PO BID 11/06/15 [History ] Escitalopram Oxalate [Lexapro] 20 mg PO DAILY 11/10/15 [History] Glucosam/Chond/Collagen/Hyalur [Glucosamine Chondroitin Cap] 1,000 mg PO BID [History] Lisinopril/Hydrochlorothiazide [Lisinopril-Hctz 20-12.5 mg Tab] 12.5 mg PO BID 02/10/16 [History] Atorvastatin Calcium 40 mg PO QHS 03/26/17 [History] Isosorbide Mononitrate [Isosorbide Mononitrate ER] 60 mg PO QHS 03/26/17 [ History] Metoprolol Succinate 50 mg PO QHS 03/26/17 [History] Nitroglycerin 0.4 mg SL UD PRN 03/26/17 [History] Ropinirole HCl 0.5 mg PO QHS 03/26/17 [History] Albuterol Sulfate [Proair Hfa] 8.5 gm IH Q6HPRN PRN 06/05/19 [History] Apixaban [Eliquis] 5 mg PO HS 06/05/19 [History] Empagliflozin [Jardiance] 25 mg PO QAM 06/05/19 [History] Exenatide Microspheres [Bydureon Bcise] 2 mg SQ WEEKLY 06/05/19 [History] Insulin Glargine [Lantus Insulin] 50 unit SQ BID 06/05/19 [History] Hx Tetanus, Diphtheria Vaccination/Date Given: Yes Hx Influenza Vaccination/Date Given: No Hx Pneumococcal Vaccination/Date Given: No - Review of Systems Constitutional: Fever Eyes: No Symptoms Ears, Nose, & Throat: No Symptoms Respiratory: No Symptoms Cardiac: No Symptoms Abdominal/Gastrointestinal: Nausea, Vomiting Genitourinary Symptoms: No Symptoms Musculoskeletal: No Symptoms Skin: Cellulitis (right lower leg) Psychological: No Symptoms Endocrine: No Symptoms Hematologic/Lymphatic: No Symptoms Immunological/Allergic: No Symptoms All Other Systems: Reviewed and Negative - Past Medical History Pertinent Past Medical History: Yes Neurological History: No Pertinent History ENT History: No Pertinent History Cardiac History: Angina, High Cholesterol, Hypertension Respiratory History: Sleep Apnea Endocrine Medical History: Diabetes Type II Musculoskeletal History: Other GI Medical History: No Pertinent History History: No Pertinent History Psycho-Social History: Anxiety Male Reproductive Disorders: No Pertinent History Other Medical History: chronic joint pain, restless leg syndrome, cellulitis BLE - Past Surgical History Past Surgical History: Yes Neuro Surgical History: No Pertinent History Cardiac: Cardiac Catheterization Respiratory: No Pertinent History Gastrointestinal: No Pertinent History Genitourinary: No Pertinent History Musculoskeletal: No Pertinent History Male Surgical History: No Pertinent History Other Surgical History: heart catheterization appx 1 year ago in [place] revealed 70% blockage - Social History Smoking Status: Never smoker Exposure to second hand smoke: No Drug Use: none Patient Lives Alone: No - Nursing Vital Signs Nursing Vital Signs: Initial Vital Signs Temperature 98.2 F 06/05/19 10:37 Pulse Rate 109 H 06/05/19 10:37 Respiratory Rate 20 06/05/19 10:37 Blood Pressure 146/84 06/05/19 10:37 O2 Sat by Pulse Oximetry 100 06/05/19 10:37 Pain Scale Pain Intensity 3 - Physical Exam General Appearance: mild distress, alert, anxiety, obese Eye Exam: PERRL/EOMI, eyes nml inspection Ears, Nose, Throat Exam: normal ENT inspection, moist mucous membranes Neck Exam: normal inspection, non-tender, supple, full range of motion Respiratory Exam: normal breath sounds, lungs clear, airway intact, No chest tenderness, No respiratory distress Cardiovascular Exam: regular rate/rhythm, normal heart sounds, normal peripheral pulses Gastrointestinal/Abdomen Exam: soft, normal bowel sounds, No tenderness Rectal Exam: not done Extremity Exam: normal inspection, normal range of motion, pelvis stable Neurologic Exam: alert, oriented x 3, 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, 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 Skin Exam: warm, other (cellulitis with central mid pretibial eschar) Lymphatic Exam: No adenopathy SpO2 Interpretation: normal O2 Delivery: Room Air Ordered Tests: Active Orders 24 hr Category Date Time Status IV Insertion STAT Care 06/05/19 10:51 Active Pulse Oximetry (ED) STAT Care 06/05/19 10:51 Active AMYLASE Stat Lab 06/05/19 10:51 Completed BLOOD CULTURE Stat Lab 06/05/19 10:52 Ordered CBC W DIFF Stat Lab 06/05/19 10:51 Completed CMP Stat Lab 06/05/19 10:51 Completed LIPASE Stat Lab 06/05/19 10:51 Completed Lactic Acid Stat Lab 06/05/19 11:18 Results Manual Differential NC Stat Lab 06/05/19 10:51 Completed [place] Screen Stat Lab 06/05/19 Completed UA W/RFX UR CULTURE Stat Lab 06/05/19 10:52 Completed Medication Summary Generic Name Dose Route Start Last Admin Trade Name Freq PRN Reason Stop Dose Admin Sodium Chloride 1,000 mls @ 999 mls/hr 06/05/19 12:04 06/05/19 12:11 Sodium Chloride 0.9% 1000 Ml IV 06/05/19 13:04 999 mls/hr .Q1H1M STA Administration Discontinued Medications Generic Name Dose Route Start Last Admin Trade Name Freq PRN Reason Stop Dose Admin Acetaminophen 650 mg 06/05/19 11:04 06/05/19 11:10 Tylenol 325 Mg PO 06/05/19 11:05 650 mg STAT STA Administration Acetaminophen Confirm 06/05/19 11:07 Tylenol 325 Mg Administered 06/05/19 11:08 Dose 650 mg .ROUTE .STK-MED ONE Sodium Chloride 1,000 mls @ 999 mls/hr 06/05/19 10:51 06/05/19 12:04 Sodium Chloride 0.9% 1000 Ml IV 06/05/19 11:51 Infused .Q1H1M STA Infusion Sodium Chloride Confirm 06/05/19 10:55 Sodium Chloride 0.9% 1000 Ml Administered 06/05/19 10:56 Dose 1,000 mls @ ud .ROUTE .STK-MED ONE Sodium Chloride Confirm 06/05/19 12:04 Sodium Chloride 0.9% 1000 Ml Administered 06/05/19 12:05 Dose 1,000 mls @ ud .ROUTE .STK-MED ONE Ibuprofen 600 mg 06/05/19 11:04 06/05/19 11:10 Motrin 600 Mg PO 06/05/19 11:05 600 mg STAT STA Administration Ibuprofen Confirm 06/05/19 11:07 Motrin 600 Mg Administered 06/05/19 11:08 Dose 600 mg .ROUTE .STK-MED ONE Insulin Human Regular 4 unit 06/05/19 12:12 06/05/19 12:27 Novolin R IV 06/05/19 12:13 4 unit STAT ONE Administration Insulin Human Regular Confirm 06/05/19 12:25 Novolin R Administered 06/05/19 12:26 Dose 1 unit .ROUTE .STK-MED ONE Ondansetron HCl 4 mg 06/05/19 10:51 06/05/19 10:57 Zofran 4 Mg/2 Ml Vial IV 06/05/19 10:52 4 mg STAT ONE Administration Ondansetron HCl Confirm 06/05/19 10:55 Zofran 4 Mg/2 Ml Vial Administered 06/05/19 10:56 Dose 4 mg .ROUTE .STK-MED ONE Lab/Rad Data: Laboratory Result Diagrams 06/05/19 10:51 06/05/19 10:51 Laboratory Results 06/05/19 06/05/19 06/05/19 Range/Units Unknown 11:30 11:18 WBC (4.0-10.5) K/mm3 RBC (4.1-5.6) M/mm3 Hgb (12.5-18.0) gm/dl Hct (42-50) % MCV (78-100) fl MCH (26-32) pg MCHC (32-36) g/dl RDW (11.5-14.0) % Plt Count (150-450) K/mm3 MPV (6-9.5) fl Sodium (137-145) mmol/L Potassium (3.5-5.1) mmol/L Chloride (98-107) mmol/L Carbon Dioxide (22-30) mmol/L Anion Gap (5-15) MEQ/L BUN (9-20) mg/dL Creatinine (0.66-1.25) mg/dL Estimated GFR ML/MIN Glucose (74-106) mg/dL Lactic Acid 4.6 H (0.4-2.0) Calcium (8.4-10.2) mg/dL Total Bilirubin (0.2-1.3) mg/dL AST (17-59) U/L ALT (0-50) U/L Alkaline Phosphatase (38-126) U/L Serum Total Protein (6.3-8.2) g/dL Albumin (3.5-5.0) g/dL Amylase (30-110) U/L Lipase (23-300) U/L Urine Color (YELLOW) Urine Appearance (CLEAR) Urine pH (5-6) Ur Specific [place] (1.005-1.025) Urine Protein (Negative) Urine Ketones (NEGATIVE) Urine Blood (0-5) Dre/ul Urine Nitrite (NEGATIVE) Urine Bilirubin (NEGATIVE) Urine Urobilinogen (0-1) mg/dL Ur Leukocyte Esterase (NEGATIVE) Urine WBC (Auto) (0-5) /HPF Urine RBC (Auto) (0-2) /HPF U Epithel Cells (Auto) (FEW) /HPF Urine Bacteria (Auto) (NEGATIVE) /HPF Urine Culture Reflexed (NO) Urine Glucose (NEGATIVE) mg/dL Monoscreen NEGATIVE (Negative) Influenza Type A Ag NEGATIVE (NEGATIVE) Influenza Type B Ag NEGATIVE (NEGATIVE) RSV (PCR) NEGATIVE (Negative) Group A Strep Antibody POSITIVE (NEGATIVE) 06/05/19 06/05/19 06/05/19 Range/Units 10:52 10:51 10:51 WBC 20.1 H (4.0-10.5) K/mm3 RBC 5.06 (4.1-5.6) M/mm3 Hgb 15.2 (12.5-18.0) gm/dl Hct 46.4 (42-50) % MCV 91.7 (78-100) fl MCH 30.0 (26-32) pg MCHC 32.8 (32-36) g/dl RDW 14.0 (11.5-14.0) % Plt Count 167 (150-450) K/mm3 MPV 10.3 H (6-9.5) fl Sodium 136 L (137-145) mmol/L Potassium 3.6 (3.5-5.1) mmol/L Chloride 96 L (98-107) mmol/L Carbon Dioxide 25 (22-30) mmol/L Anion Gap 17.8 H (5-15) MEQ/L BUN 17 (9-20) mg/dL Creatinine 1.23 (0.66-1.25) mg/dL Estimated GFR > 60.0 ML/MIN Glucose 347 H (74-106) mg/dL Lactic Acid (0.4-2.0) Calcium 9.0 (8.4-10.2) mg/dL Total Bilirubin 0.90 (0.2-1.3) mg/dL AST 27 (17-59) U/L ALT 24 (0-50) U/L Alkaline Phosphatase 90 (38-126) U/L Serum Total Protein 6.7 (6.3-8.2) g/dL Albumin 3.7 (3.5-5.0) g/dL Amylase 30 (30-110) U/L Lipase 74 (23-300) U/L Urine Color YELLOW (YELLOW) Urine Appearance CLEAR (CLEAR) Urine pH 6.0 (5-6) Ur Specific [place] 1.030 (1.005-1.025) Urine Protein NEGATIVE (Negative) Urine Ketones TRACE (NEGATIVE) Urine Blood SMALL (0-5) Dre/ul Urine Nitrite NEGATIVE (NEGATIVE) Urine Bilirubin NEGATIVE (NEGATIVE) Urine Urobilinogen NEGATIVE (0-1) mg/dL Ur Leukocyte Esterase NEGATIVE (NEGATIVE) Urine WBC (Auto) 0-2 (0-5) /HPF Urine RBC (Auto) NONE (0-2) /HPF U Epithel Cells (Auto) NONE (FEW) /HPF Urine Bacteria (Auto) NONE (NEGATIVE) /HPF Urine Culture Reflexed NO (NO) Urine Glucose >=500 (NEGATIVE) mg/dL Monoscreen (Negative) Influenza Type A Ag (NEGATIVE) Influenza Type B Ag (NEGATIVE) RSV (PCR) (Negative) Group A Strep Antibody (NEGATIVE) - Progress Progress: unchanged Air Movement: good Progress Note: 06/05/19 12:[address] mckoy. i reviewed pt hx, labs and condition. he accepts pt for admission Blood Culture(s) Obtained: Yes Antibiotics given: Yes Discussed with : Mikey Counseled pt/family regarding: lab results, diagnosis - Departure Departure Disposition: In-patient Admission Clinical Impression: Cellulitis, Sepsis, Strep pharyngitis Condition: Stable Critical Care Time: Yes Critical Care Time(excluding separately billable procedures): Critical 30-74 mins Referrals: GERALDINE MCKOY MD [Primary Care Provider] -
[2019-06-05] MEDS ORDERED: Zofran 4 MG/2 ML VIAL IV ONE (10:51)
[2019-06-05] MEDS ORDERED: Sodium Chloride 0.9% 1000 ML 1,000 ML IV STA ×2 (10:51→12:04)
[2019-06-05] MEDS ORDERED: Zofran 4 MG/2 ML VIAL ONE (10:55)
[2019-06-05] MEDS ORDERED: Sodium Chloride 0.9% 1000 ML 1,000 ML ONE ×2 (10:55→12:04)
[2019-06-05] MEDS ORDERED: MOTRIN 600 MG PO STA (11:04)
[2019-06-05] MEDS ORDERED: TYLENOL 325 MG PO STA (11:04)
[2019-06-05] MEDS ORDERED: TYLENOL 325 MG ONE (11:07)
[2019-06-05] MEDS ORDERED: MOTRIN 600 MG ONE (11:07)
[2019-06-05 11:19] LABS: Lactic Acid 4.6 (0.4-2.0)
[2019-06-05 11:34] LABS: Hematocrit 46.4 % (42-50); Hemoglobin 15.2 gm/dl (12.5-18.0); Mean Cell Volume 91.7 fl (78-100); Mean Corpuscular Hgb Concent. 32.8 g/dl (32-36); Mean Platelet Volume 10.3 fl (6-9.5); Platelet Count 167 K/mm3 (150-450); Red Blood Count 5.06 M/mm3 (4.1-5.6); White Blood Count 20.1 K/mm3 (4.0-10.5)
[2019-06-05 11:53] LABS: ALBUMIN 3.7 g/dL (3.5-5.0); ALKALINE PHOSPHATASE 90 U/L (38-126); AMYLASE 30 U/L (30-110); ANION GAP 17.8 MEQ/L (5-15); BLOOD UREA NITROGEN 17 mg/dL (9-20); CHLORIDE 96 mmol/L (98-107); Carbon Dioxide 25 mmol/L (22-30); Creatinine 1 1.23 mg/dL (0.66-1.25); Glucose 347 mg/dL (74-106); LIPASE 74 U/L (23-300); Potassium 3.6 mmol/L (3.5-5.1); SGOT/AST 27 U/L (17-59); SODIUM 136 mmol/L (137-145); Total Protein 6.7 g/dL (6.3-8.2)
[2019-06-05 12:00] LABS: SGPT/ALT 24 U/L (0-50)
[2019-06-05 12:08] LABS: Group A Strep POSITIVE (NEGATIVE); INFLUENZA A NEGATIVE (NEGATIVE); INFLUENZA B NEGATIVE (NEGATIVE); RESPIRATORY SYNCTIAL VIRUS NEGATIVE (Negative)
[2019-06-05] MEDS ORDERED: NovoLIN R IV ONE (12:12)
[2019-06-05 12:13] LABS: Appearance CLEAR (CLEAR); Bilirubin NEGATIVE (NEGATIVE); Blood SMALL Ery/ul (0-5); Glucose >=500 mg/dL (NEGATIVE); Ketones TRACE (NEGATIVE); Leukocyte Esterase NEGATIVE (NEGATIVE); Nitrite NEGATIVE (NEGATIVE); Protein,Urine Dip NEGATIVE (Negative); Urobilinogen NEGATIVE mg/dL (0-1); WBC 0-2 /HPF (0-5)
[2019-06-05] MEDS ORDERED: NovoLIN R ONE (12:25)
[2019-06-05 12:39] LABS: BAND 8 % (0.0-2.0); Lymphocytes 8 % (24-44); Monocyte 2 % (0.0-12.0); Neutrophils 82 % (36.-66.); Total Cells Counted 100
[2019-06-05 12:40] LABS: Platelet Estimate NORMAL (NORMAL)
[2019-06-05] MEDS ORDERED: Vancomycin 1GM/ Ns 250ML*** 1 GM/250 ML IVPB IV ONE (12:40)
[2019-06-05] MEDS ORDERED: Vancomycin 1GM/ Ns 250ML*** 250 ML IV ONE (12:43)
[2019-06-05] MEDS ORDERED: Zofran 4 MG/2 ML VIAL IV PRN (13:29)
[2019-06-05] MEDS: Sodium Chloride 0.9% 1000 ML 1,000 ML IV SCH ×2 (13:42→21:14)
[2019-06-05] MEDS: NovoLOG Insulin SQ PRN ×3 (13:44→21:57)
[2019-06-05 13:56] LABS: Lactic Acid 2.4 (0.4-2.0)
[2019-06-05] MEDS ORDERED: Nitrostat 0.4 MG Tablet SL PRN (15:30)
[2019-06-05] MEDS ORDERED: Ventolin Hfa MDI IH PRN (15:30)
[2019-06-05] MEDS ORDERED: PROVENTIL COMMON CANISTER IH PRN (15:40)
[2019-06-05] MEDS: TYLENOL 325 MG PO PRN (16:59)
[2019-06-05] MEDS: NORCO 5/325 MG PO PRN (20:01)
[2019-06-05] MEDS: Toprol Xl 50 MG PO SCH (21:11)
[2019-06-05] MEDS: Requip 0.5 MG PO SCH (21:11)
[2019-06-05] MEDS: ELIQUIS 2.5 MG TABLET PO SCH (21:11)
[2019-06-05] MEDS: Imdur 60MG PO SCH (21:11)
[2019-06-05] MEDS: hydroDIURIL 25 MG PO SCH (21:12)
[2019-06-05] MEDS: Lantus Insulin SQ SCH (21:13)
[2019-06-05] MEDS: Zestril 20 MG PO SCH (21:13)
[2019-06-05] MEDS: ECOTRIN 81 MG PO SCH (21:13)
[2019-06-05] MEDS: VANCOMYCIN 2 GRAM/400 ML BAG 2 GM/400 ML PIGGYBACK IV SCH (21:15)
[2019-06-05] MEDS ORDERED: BABY ASPIRIN 81 MG CHEW PO SCH (22:00)
[2019-06-05] MEDS ORDERED: Vancomycin 1GM/ Ns 250ML*** 1 GM/250 ML IVPB IV SCH (22:00)
[2019-06-05] MEDS ORDERED: [UNRECOGNIZED DRUG - OTHER] PO SCH (22:00)
[2019-06-05] MEDS ORDERED: LISINOPRIL PO SCH (22:00)
[2019-06-05] MEDS ORDERED: HYDROCHLOROTHIAZIDE PO SCH (22:00)
[2019-06-06] MEDS: TYLENOL 325 MG PO PRN (00:08)
[2019-06-06] MEDS: NORCO 5/325 MG PO PRN (04:19)
[2019-06-06 05:12] LABS: Hematocrit 44.4 % (42-50); Hemoglobin 14.2 gm/dl (12.5-18.0); Mean Cell Volume 91.9 fl (78-100); Mean Corpuscular Hemoglobin 29.4 pg (26-32); Platelet Count 147 K/mm3 (150-450); Red Blood Count 4.83 M/mm3 (4.1-5.6); White Blood Count 15.2 K/mm3 (4.0-10.5)
[2019-06-06 06:05] LABS: ALBUMIN 3.3 g/dL (3.5-5.0); ALKALINE PHOSPHATASE 79 U/L (38-126); ANION GAP 13.3 MEQ/L (5-15); BLOOD UREA NITROGEN 15 mg/dL (9-20); CHLORIDE 101 mmol/L (98-107); Calcium 8.3 mg/dL (8.4-10.2); Carbon Dioxide 28 mmol/L (22-30); Creatinine 1 1.24 mg/dL (0.66-1.25); Glucose 137 mg/dL (74-106); Potassium 3.7 mmol/L (3.5-5.1); SGOT/AST 41 U/L (17-59); SGPT/ALT 23 U/L (0-50); SODIUM 139 mmol/L (137-145); Total Protein 6.5 g/dL (6.3-8.2)
[2019-06-06] MEDS: Sodium Chloride 0.9% 1000 ML 1,000 ML IV SCH ×2 (06:42→16:00)
[2019-06-06 07:18] LABS: BAND 35 % (0.0-2.0); Basophil 1 % (0.0-1.0); Eosinophil 1 % (0.00-3.0); Lymphocytes 7 % (24-44); Monocyte 5 % (0.0-12.0); Neutrophils 51 % (36.-66.); Total Cells Counted 100
[2019-06-06 07:19] LABS: ANISOCYTOSIS 1+; Platelet Estimate NORMAL (NORMAL); Polychromasia 1+
[2019-06-06 07:20] LABS: Absolute Neutrophil Ct (ANC) 12.9 (1.4-6.9)
--- NOTE | 2019-06-06 08:39 | PCM.HP ---
History of Present Illness - Chief Complaint Chief Complaint: cellulitis History of Present Illness: is a 53 year old male who presented with sudden onset of headache, fever/chills and right lower leg pain. he has a history of cellulitis in the past, no known injury or inciting event. - Review of Systems Constitutional: Fever, Chills Respiratory: No Cough, No Short Of Breath Cardiac: No Chest Pain, No Edema, No Syncope Abdominal/Gastrointestinal: No Symptoms Musculoskeletal: Other (right lower leg redness and pain) Neurological: Headache Medications & Allergies Home Medications: Home Medication List Aspirin 81 gm Chew [Baby Aspirin 81 mg Chew] 81 mg PO QHS 11/06/15 [ History Confirmed 06/05/19] Metformin HCl 500 mg [Glucophage 500 MG] 1,000 mg PO BID 11/06/15 [ History Confirmed 06/05/19] Escitalopram Oxalate [Lexapro] 20 mg PO DAILY 11/10/15 [History Confirmed ] Glucosam/Chond/Collagen/Hyalur [Glucosamine Chondroitin Cap] 1,000 mg PO BID [History Confirmed 06/05/19] Lisinopril/Hydrochlorothiazide [Lisinopril-Hctz 20-12.5 mg Tab] 12.5 mg PO BID 02/10/16 [History Confirmed 06/05/19] Atorvastatin Calcium 40 mg PO QHS 03/26/17 [History Confirmed 06/05/19] Isosorbide Mononitrate [Isosorbide Mononitrate ER] 60 mg PO QHS 03/26/17 [ History Confirmed 06/05/19] Metoprolol Succinate 50 mg PO QHS 03/26/17 [History Confirmed 06/05/19] Nitroglycerin 0.4 mg SL UD PRN 03/26/17 [History Confirmed 06/05/19] Ropinirole HCl 0.5 mg PO QHS 03/26/17 [History Confirmed 06/05/19] Albuterol Sulfate [Proair Hfa] 8.5 gm IH Q6HPRN PRN 06/05/19 [History Confirmed 06/05/19] Apixaban [Eliquis] 5 mg PO HS 06/05/19 [History Confirmed 06/05/19] Empagliflozin [Jardiance] 25 mg PO QAM 06/05/19 [History Confirmed 06/05/19] Exenatide Microspheres [Bydureon Bcise] 2 mg SQ WEEKLY 06/05/19 [History Confirmed 06/05/19] Insulin Glargine [Lantus Insulin] 50 unit SQ BID 06/05/19 [History Confirmed 06/05/19] Allergies/Adverse Reactions: Allergies Allergy/AdvReac Type Severity Reaction Status Date / Time Penicillins Allergy Unknown Verified 06/05/19 10:52 - Past Medical History Past Medical History: Yes Neurological History: No Pertinent History ENT History: No Pertinent History Cardiac History: Angina, High Cholesterol, Hypertension Respiratory History: Sleep Apnea Endocrine Medical History: Diabetes Type II Musculoskelatal History: Other GI Medical History: No Pertinent History History: No Pertinent History Pyscho-Social History: Anxiety Male Reproductive Disorders: No Pertinent History Comment: chronic joint pain, restless leg syndrome, cellulitis BLE - Past Surgical History Past Surgical History: Yes Neuro Surgical History: No Pertinent History Cardiac History: Cardiac Catheterization Respiratory Surgery: No Pertinent History GI Surgical History: No Pertinent History Genitourinary Surgical Hx: No Pertinent History Musculskeletal Surgical Hx: No Pertinent History Male Surgical History: No Pertinent History Other Surgical History: heart catheterization appx 1 year ago in [place] revealed 70% blockage - Social History Smoking Status: Never smoker Exposure to second hand smoke: No Alcohol: None Drug Use: none - Physical Exam Vital Signs: Vital Signs - 24 hr Temp Pulse Resp BP Pulse Ox 06/06/19 08:00 97.4 F 88 18 118/56 99 06/06/19 04:00 99.4 F 89 20 133/67 98 06/06/19 00:00 101.3 F 88 20 106/50 96 06/05/19 20:11 98 H 18 92 L 06/05/19 19:32 100.9 F 85 19 151/81 98 06/05/19 16:50 100.5 F 90 22 120/58 96 06/05/19 15:50 90 16 97 06/05/19 13:54 98.4 F 88 22 119/61 95 06/05/19 13:29 95 06/05/19 13:24 98.4 F 88 22 119/61 95 06/05/19 13:03 80 20 109/59 95 06/05/19 12:51 85 20 108/71 95 06/05/19 11:57 101.3 F 97 H 18 118/70 97 06/05/19 11:03 100 06/05/19 10:37 98.2 F 109 H 20 146/84 100 General Appearance: no apparent distress, obese Neurologic Exam: alert, oriented x 3 Respiratory Exam: normal breath sounds, lungs clear, No respiratory distress Cardiovascular Exam: regular rate/rhythm, normal heart sounds, normal peripheral pulses Gastrointestinal/Abdomen Exam: soft, normal bowel sounds, No tenderness, No mass Extremity Exam: other (right lower leg/calf redness, warmth. no significant swelling, no calf tenderness) Wound Assessment: Skin/Wound Assessment Wound/Incision Assessment Start: 06/05/19 14: 00 Text: Status: Active Freq: Q6H Protocol: Document 06/06/19 02:00 GLORIA (Rec: 06/06/19 04:25 GLORIA [id number]) Wound/Incision Assessment Right Lower Calf Wound Assessment Shift Assessment Wound Type cellulitis Wound Stage Non Pressure Wound Drainage Amount None General Appearance Open to air Comment Area red, edematous, warm to touch, area circled Results - Labs Lab/Micro Results: Accuchecks Accucheck Value: 166 Accucheck Value: 306 Lab Results-Last 24 Hours 06/05/19 06/05/19 06/05/19 Range/Units 10:51 10:51 10:52 WBC 20.1 H (4.0-10.5) K/mm3 RBC 5.06 (4.1-5.6) M/mm3 Hgb 15.2 (12.5-18.0) gm/dl Hct 46.4 (42-50) % MCV 91.7 (78-100) fl MCH 30.0 (26-32) pg MCHC 32.8 (32-36) g/dl RDW 14.0 (11.5-14.0) % Plt Count 167 (150-450) K/mm3 MPV 10.3 H (6-9.5) fl Absolute Granulocytes (1.4-6.9) Segmented Neutrophils 82 H (36.-66.) % Band Neutrophils 8 H (0.0-2.0) % Lymphocytes (Manual) 8 L (24-44) % Monocytes (Manual) 2 (0.0-12.0) % Eosinophils (Manual) (0.00-3.0) % Basophils (Manual) (0.0-1.0) % Platelet Estimate NORMAL (NORMAL) RBC Morphology NORMAL Polychromasia Anisocytosis Sodium 136 L (137-145) mmol/L Potassium 3.6 (3.5-5.1) mmol/L Chloride 96 L (98-107) mmol/L Carbon Dioxide 25 (22-30) mmol/L Anion Gap 17.8 H (5-15) MEQ/L BUN 17 (9-20) mg/dL Creatinine 1.23 (0.66-1.25) mg/dL Estimated GFR > 60.0 ML/MIN Glucose 347 H (74-106) mg/dL Lactic Acid (0.4-2.0) Calcium 9.0 (8.4-10.2) mg/dL Total Bilirubin 0.90 (0.2-1.3) mg/dL AST 27 (17-59) U/L ALT 24 (0-50) U/L Alkaline Phosphatase 90 (38-126) U/L Serum Total Protein 6.7 (6.3-8.2) g/dL Albumin 3.7 (3.5-5.0) g/dL Amylase 30 (30-110) U/L Lipase 74 (23-300) U/L Urine Color YELLOW (YELLOW) Urine Appearance CLEAR (CLEAR) Urine pH 6.0 (5-6) Ur Specific [place] 1.030 (1.005-1.025) Urine Protein NEGATIVE (Negative) Urine Ketones TRACE (NEGATIVE) Urine Blood SMALL (0-5) Dre/ul Urine Nitrite NEGATIVE (NEGATIVE) Urine Bilirubin NEGATIVE (NEGATIVE) Urine Urobilinogen NEGATIVE (0-1) mg/dL Ur Leukocyte Esterase NEGATIVE (NEGATIVE) Urine WBC (Auto) 0-2 (0-5) /HPF Urine RBC (Auto) NONE (0-2) /HPF U Epithel Cells (Auto) NONE (FEW) /HPF Urine Bacteria (Auto) NONE (NEGATIVE) /HPF Urine Culture Reflexed NO (NO) Urine Glucose >=500 (NEGATIVE) mg/dL Monoscreen (Negative) Influenza Type A Ag (NEGATIVE) Influenza Type B Ag (NEGATIVE) RSV (PCR) (Negative) Group A Strep Antibody (NEGATIVE) 06/05/19 06/05/19 06/05/19 Range/Units 11:18 11:30 13:40 WBC (4.0-10.5) K/mm3 RBC (4.1-5.6) M/mm3 Hgb (12.5-18.0) gm/dl Hct (42-50) % MCV (78-100) fl MCH (26-32) pg MCHC (32-36) g/dl RDW (11.5-14.0) % Plt Count (150-450) K/mm3 MPV (6-9.5) fl Absolute Granulocytes (1.4-6.9) Segmented Neutrophils (36.-66.) % Band Neutrophils (0.0-2.0) % Lymphocytes (Manual) (24-44) % Monocytes (Manual) (0.0-12.0) % Eosinophils (Manual) (0.00-3.0) % Basophils (Manual) (0.0-1.0) % Platelet Estimate (NORMAL) RBC Morphology Polychromasia Anisocytosis Sodium (137-145) mmol/L Potassium (3.5-5.1) mmol/L Chloride (98-107) mmol/L Carbon Dioxide (22-30) mmol/L Anion Gap (5-15) MEQ/L BUN (9-20) mg/dL Creatinine (0.66-1.25) mg/dL Estimated GFR ML/MIN Glucose (74-106) mg/dL Lactic Acid 4.6 H 2.4 H (0.4-2.0) Calcium (8.4-10.2) mg/dL Total Bilirubin (0.2-1.3) mg/dL AST (17-59) U/L ALT (0-50) U/L Alkaline Phosphatase (38-126) U/L Serum Total Protein (6.3-8.2) g/dL Albumin (3.5-5.0) g/dL Amylase (30-110) U/L Lipase (23-300) U/L Urine Color (YELLOW) Urine Appearance (CLEAR) Urine pH (5-6) Ur Specific [place] (1.005-1.025) Urine Protein (Negative) Urine Ketones (NEGATIVE) Urine Blood (0-5) Dre/ul Urine Nitrite (NEGATIVE) Urine Bilirubin (NEGATIVE) Urine Urobilinogen (0-1) mg/dL Ur Leukocyte Esterase (NEGATIVE) Urine WBC (Auto) (0-5) /HPF Urine RBC (Auto) (0-2) /HPF U Epithel Cells (Auto) (FEW) /HPF Urine Bacteria (Auto) (NEGATIVE) /HPF Urine Culture Reflexed (NO) Urine Glucose (NEGATIVE) mg/dL Monoscreen (Negative) Influenza Type A Ag NEGATIVE (NEGATIVE) Influenza Type B Ag NEGATIVE (NEGATIVE) RSV (PCR) NEGATIVE (Negative) Group A Strep Antibody POSITIVE (NEGATIVE) 06/05/19 06/05/19 06/06/19 Range/Units 21:05 Unknown 04:30 WBC 15.2 H (4.0-10.5) K/mm3 RBC 4.83 (4.1-5.6) M/mm3 Hgb 14.2 (12.5-18.0) gm/dl Hct 44.4 (42-50) % MCV 91.9 (78-100) fl MCH 29.4 (26-32) pg MCHC 32.0 (32-36) g/dl RDW 14.0 (11.5-14.0) % Plt Count 147 L (150-450) K/mm3 MPV 10.0 H (6-9.5) fl Absolute Granulocytes 12.9 H (1.4-6.9) Segmented Neutrophils 51 (36.-66.) % Band Neutrophils 35 H (0.0-2.0) % Lymphocytes (Manual) 7 L (24-44) % Monocytes (Manual) 5 (0.0-12.0) % Eosinophils (Manual) 1 (0.00-3.0) % Basophils (Manual) 1 (0.0-1.0) % Platelet Estimate NORMAL (NORMAL) RBC Morphology ABNORMAL Polychromasia 1+ Anisocytosis 1+ Sodium (137-145) mmol/L Potassium (3.5-5.1) mmol/L Chloride (98-107) mmol/L Carbon Dioxide (22-30) mmol/L Anion Gap (5-15) MEQ/L BUN (9-20) mg/dL Creatinine (0.66-1.25) mg/dL Estimated GFR ML/MIN Glucose (74-106) mg/dL Lactic Acid 1.2 (0.4-2.0) Calcium (8.4-10.2) mg/dL Total Bilirubin (0.2-1.3) mg/dL AST (17-59) U/L ALT (0-50) U/L Alkaline Phosphatase (38-126) U/L Serum Total Protein (6.3-8.2) g/dL Albumin (3.5-5.0) g/dL Amylase (30-110) U/L Lipase (23-300) U/L Urine Color (YELLOW) Urine Appearance (CLEAR) Urine pH (5-6) Ur Specific [place] (1.005-1.025) Urine Protein (Negative) Urine Ketones (NEGATIVE) Urine Blood (0-5) Dre/ul Urine Nitrite (NEGATIVE) Urine Bilirubin (NEGATIVE) Urine Urobilinogen (0-1) mg/dL Ur Leukocyte Esterase (NEGATIVE) Urine WBC (Auto) (0-5) /HPF Urine RBC (Auto) (0-2) /HPF U Epithel Cells (Auto) (FEW) /HPF Urine Bacteria (Auto) (NEGATIVE) /HPF Urine Culture Reflexed (NO) Urine Glucose (NEGATIVE) mg/dL Monoscreen NEGATIVE (Negative) Influenza Type A Ag (NEGATIVE) Influenza Type B Ag (NEGATIVE) RSV (PCR) (Negative) Group A Strep Antibody (NEGATIVE) 06/06/19 Range/Units 04:30 WBC (4.0-10.5) K/mm3 RBC (4.1-5.6) M/mm3 Hgb (12.5-18.0) gm/dl Hct (42-50) % MCV (78-100) fl MCH (26-32) pg MCHC (32-36) g/dl RDW (11.5-14.0) % Plt Count (150-450) K/mm3 MPV (6-9.5) fl Absolute Granulocytes (1.4-6.9) Segmented Neutrophils (36.-66.) % Band Neutrophils (0.0-2.0) % Lymphocytes (Manual) (24-44) % Monocytes (Manual) (0.0-12.0) % Eosinophils (Manual) (0.00-3.0) % Basophils (Manual) (0.0-1.0) % Platelet Estimate (NORMAL) RBC Morphology Polychromasia Anisocytosis Sodium 139 (137-145) mmol/L Potassium 3.7 (3.5-5.1) mmol/L Chloride 101 (98-107) mmol/L Carbon Dioxide 28 (22-30) mmol/L Anion Gap 13.3 (5-15) MEQ/L BUN 15 (9-20) mg/dL Creatinine 1.24 (0.66-1.25) mg/dL Estimated GFR > 60.0 ML/MIN Glucose 137 H (74-106) mg/dL Lactic Acid (0.4-2.0) Calcium 8.3 L (8.4-10.2) mg/dL Total Bilirubin 0.80 (0.2-1.3) mg/dL AST 41 (17-59) U/L ALT 23 (0-50) U/L Alkaline Phosphatase 79 (38-126) U/L Serum Total Protein 6.5 (6.3-8.2) g/dL Albumin 3.3 L (3.5-5.0) g/dL Amylase (30-110) U/L Lipase (23-300) U/L Urine Color (YELLOW) Urine Appearance (CLEAR) Urine pH (5-6) Ur Specific [place] (1.005-1.025) Urine Protein (Negative) Urine Ketones (NEGATIVE) Urine Blood (0-5) Dre/ul Urine Nitrite (NEGATIVE) Urine Bilirubin (NEGATIVE) Urine Urobilinogen (0-1) mg/dL Ur Leukocyte Esterase (NEGATIVE) Urine WBC (Auto) (0-5) /HPF Urine RBC (Auto) (0-2) /HPF U Epithel Cells (Auto) (FEW) /HPF Urine Bacteria (Auto) (NEGATIVE) /HPF Urine Culture Reflexed (NO) Urine Glucose (NEGATIVE) mg/dL Monoscreen (Negative) Influenza Type A Ag (NEGATIVE) Influenza Type B Ag (NEGATIVE) RSV (PCR) (Negative) Group A Strep Antibody (NEGATIVE) Accuchecks Accucheck Value: 166 Accucheck Value: 306 - Other Procedures and Tests Respiratory Therapy 06/05/19 18:26 Respiratory Therapy Assessment DAILY 06/05/19 18:29 BiPap/CPAP ROUTINE Assessment/Plan (1) Cellulitis of right leg Current Visit: No Status: Acute Assessment & Plan: continue vanc IV at this time, has responded well in the past Code(s): L03.115 - CELLULITIS OF RIGHT LOWER LIMB (2) Strep pharyngitis Current Visit: Yes Status: Acute Code(s): J02.0 - STREPTOCOCCAL PHARYNGITIS (3) Type 2 diabetes, uncontrolled, with cellulitis of foot Current Visit: No Status: Chronic Code(s): E11.628 - TYPE 2 DIABETES MELLITUS WITH OTHER SKIN COMPLICATIONS; E11.65 - TYPE 2 DIABETES MELLITUS WITH HYPERGLYCEMIA; L03.119 - CELLULITIS OF UNSPECIFIED PART OF LIMB
[2019-06-06] MEDS: VANCOMYCIN 2 GRAM/400 ML BAG 2 GM/400 ML PIGGYBACK IV SCH ×2 (08:41→21:25)
[2019-06-06] MEDS: Zestril 20 MG PO SCH ×2 (08:41→21:25)
[2019-06-06] MEDS: hydroDIURIL 25 MG PO SCH ×2 (08:41→21:23)
[2019-06-06] MEDS: Lexapro 10 MG PO SCH (08:41)
[2019-06-06] MEDS: Lantus Insulin SQ SCH ×2 (08:42→21:25)
[2019-06-06] MEDS: Norco 10/325 MG Tablet PO PRN ×2 (09:26→17:37)
[2019-06-06] MEDS ORDERED: NON-FORMULARY ITEM (Escitalopram Oxalate [Lexapro] 20 MG) PO SCH (10:00)
[2019-06-06] MEDS: NovoLOG Insulin SQ PRN ×2 (12:12→21:26)
[2019-06-06] MEDS: ECOTRIN 81 MG PO SCH (21:23)
[2019-06-06] MEDS: ELIQUIS 2.5 MG TABLET PO SCH (21:23)
[2019-06-06] MEDS: Requip 0.5 MG PO SCH (21:24)
[2019-06-06] MEDS: Toprol Xl 50 MG PO SCH (21:24)
[2019-06-06] MEDS: Imdur 60MG PO SCH (21:24)
[2019-06-07] MEDS: Norco 10/325 MG Tablet PO PRN ×3 (02:05→12:12)
[2019-06-07] MEDS: Sodium Chloride 0.9% 1000 ML 1,000 ML IV SCH (02:12)
[2019-06-07 06:39] LABS: Hematocrit 42.1 % (42-50); Hemoglobin 13.7 gm/dl (12.5-18.0); Mean Corpuscular Hemoglobin 29.3 pg (26-32); Mean Corpuscular Hgb Concent. 32.5 g/dl (32-36); Mean Platelet Volume 9.8 fl (6-9.5); Platelet Count 144 K/mm3 (150-450); Red Blood Count 4.68 M/mm3 (4.1-5.6); Red Cell Distribution Width 13.9 % (11.5-14.0)
[2019-06-07 07:01] LABS: ALKALINE PHOSPHATASE 81 U/L (38-126); ANION GAP 11.1 MEQ/L (5-15); BLOOD UREA NITROGEN 13 mg/dL (9-20); CHLORIDE 101 mmol/L (98-107); Calcium 8.2 mg/dL (8.4-10.2); Carbon Dioxide 28 mmol/L (22-30); Creatinine 1 0.82 mg/dL (0.66-1.25); Glucose 121 mg/dL (74-106); SGOT/AST 34 U/L (17-59); SGPT/ALT 24 U/L (0-50); SODIUM 136 mmol/L (137-145); Total Protein 6.3 g/dL (6.3-8.2)
[2019-06-07 07:22] LABS: Potassium 2.9 mmol/L (3.5-5.1)
[2019-06-07] MEDS: hydroDIURIL 25 MG PO SCH ×2 (09:11→22:02)
[2019-06-07] MEDS: Lexapro 10 MG PO SCH (09:11)
[2019-06-07] MEDS: Lantus Insulin SQ SCH ×2 (09:11→22:03)
[2019-06-07] MEDS: Zestril 20 MG PO SCH ×2 (09:11→22:04)
[2019-06-07] MEDS ORDERED: TROUGH DRUG LEVELS IJ ONE (09:30)
[2019-06-07] MEDS: POTASSIUM CHLORIDE 20 mEq IN WATER 100ML 20 MEQ/100 ML BAG IV SCH ×2 (10:12→13:17)
[2019-06-07] MEDS: VANCOMYCIN 2 GRAM/400 ML BAG 2 GM/400 ML PIGGYBACK IV SCH ×2 (11:54→22:04)
[2019-06-07] MEDS: NovoLOG Insulin SQ PRN ×3 (12:16→22:05)
[2019-06-07 15:28] LABS: BAND 16 % (0.0-2.0); Basophil 1 % (0.0-1.0); Eosinophil 1 % (0.00-3.0); Lymphocytes 15 % (24-44); Monocyte 10 % (0.0-12.0); Neutrophils 57 % (36.-66.); Platelet Estimate DECREASED (NORMAL); Total Cells Counted 100
--- NOTE | 2019-06-07 15:49 | PCM.NOTE ---
Date and Time: 06/07/19 1543 Subjective Assessment: Patient states the right leg redness is improving at the "top" but the bottom is very tender and red. He has been sitting in a chair for pat 2 hours with his legs down. He states he has had a little cough productive of thick brown sputum x 1. He has his CPap from home here. BM loose x 1 yesterday ,no BM today.C/O pain in IV site ,potassium running . Appetite is good.Patient states he is on Eliquis from his [employer]ing [employer] Agent after Afib dg,feels he had another bout a week or more ago but no palpitations now. Objective Exam Neurologic Exam: alert, oriented x 3, cooperative, normal mood/affect Skin Exam: warm, dry Wound Assessment: Skin/Wound Assessment Wound/Incision Assessment Start: 06/05/19 14: 00 Text: Status: Active Freq: Q6H Protocol: Document 06/07/19 14:00 CARRIE (Rec: 06/07/19 14:23 CARRIE [id number]) Wound/Incision Assessment Right Lower Calf Wound Assessment Shift Assessment Wound Type CELLULITIS Wound Stage Non Pressure Wound Drainage Amount None General Appearance Open to air Surrounding Tissue Bright Red Comment RED AND WARM TO THE TOUCH, SMALL SCABBED AREA NOTED, NOT OPEN, NO DRAINGE Ears, Nose, Throat Exam: moist mucous membranes, other (left tonsil large not red no exudate) Respiratory Exam: wheezing (fine eew left mid no rales no ronchi) Cardiovascular Exam: regular rate/rhythm Gastrointestinal/Abdomen Exam: soft, normal bowel sounds (nontender) Extremity Exam: swelling (red low leg and tender but less red proximally per ER marker,calf soft neg mynor's), tenderness OBJECTIVE DATA Vital Signs: Vital Signs - 24 hr Temp Pulse Resp BP Pulse Ox 06/07/19 12:00 99.4 F 83 18 123/66 98 06/07/19 08:36 80 18 95 06/07/19 08:00 99.0 F 81 20 106/55 100 06/07/19 04:00 97.8 F 82 20 128/71 96 06/07/19 00:12 98.3 F 78 20 110/65 96 06/06/19 22:25 100 H 20 95 06/06/19 19:23 100.2 F 103 H 20 149/68 95 06/06/19 16:00 98.2 F 101 H 18 147/60 97 Pain Assessment - Last Documented Pain Intensity 1 Pain Scale Used 0-10 Pain Scale Intake and Output: Intake & Output 06/05/19 06/06/19 06/07/19 06/08/19 11:59 11:59 11:59 11:59 Intake Total 2975 4620 277 Balance 2978 502 240 Weight 170.097 kg 173.9 kg 176.9 kg Lab Results: Accuchecks Accucheck Value: 184 Accucheck Value: 120 Accucheck Value: 245 Lab Results-Last 24 Hours 06/07/19 06/07/19 06/07/19 Range/Units 06:15 06:15 10:00 WBC 14.0 H (4.0-10.5) K/mm3 RBC 4.68 (4.1-5.6) M/mm3 Hgb 13.7 (12.5-18.0) gm/dl Hct 42.1 (42-50) % MCV 90.0 (78-100) fl MCH 29.3 (26-32) pg MCHC 32.5 (32-36) g/dl RDW 13.9 (11.5-14.0) % Plt Count 144 L (150-450) K/mm3 MPV 9.8 H (6-9.5) fl Segmented Neutrophils 57 (36.-66.) % Band Neutrophils 16 H (0.0-2.0) % Lymphocytes (Manual) 15 L (24-44) % Monocytes (Manual) 10 (0.0-12.0) % Eosinophils (Manual) 1 (0.00-3.0) % Basophils (Manual) 1 (0.0-1.0) % Platelet Estimate DECREASED (NORMAL) RBC Morphology NORMAL Sodium 136 L (137-145) mmol/L Potassium 2.9 L* D (3.5-5.1) mmol/L Chloride 101 (98-107) mmol/L Carbon Dioxide 28 (22-30) mmol/L Anion Gap 11.1 (5-15) MEQ/L BUN 13 (9-20) mg/dL Creatinine 0.82 (0.66-1.25) mg/dL Estimated GFR > 60.0 ML/MIN Glucose 121 H (74-106) mg/dL Calcium 8.2 L (8.4-10.2) mg/dL Total Bilirubin 0.60 (0.2-1.3) mg/dL AST 34 (17-59) U/L ALT 24 (0-50) U/L Alkaline Phosphatase 81 (38-126) U/L Serum Total Protein 6.3 (6.3-8.2) g/dL Albumin 3.0 L (3.5-5.0) g/dL Vancomycin Trough 9.72 L (10-20) ug/mL Assessment/Plan (1) Cellulitis of right leg Current Visit: No Status: Acute Assessment & Plan: improving slowly,WBC is coming down on Vancomycin. Code(s): L03.115 - CELLULITIS OF RIGHT LOWER LIMB (2) Hypokalemia Current Visit: Yes Status: Acute Code(s): E87.6 - HYPOKALEMIA (3) Wheezing on right side of chest on exhalation Current Visit: Yes Status: Acute Assessment & Plan: started Albuterol neb tx Code(s): R06.2 - WHEEZING (4) Type 2 diabetes, uncontrolled, with cellulitis of foot Current Visit: No Status: Chronic Assessment & Plan: diabetic diet and cont home meds -moniter Code(s): E11.628 - TYPE 2 DIABETES MELLITUS WITH OTHER SKIN COMPLICATIONS; E11.65 - TYPE 2 DIABETES MELLITUS WITH HYPERGLYCEMIA; L03.119 - CELLULITIS OF UNSPECIFIED PART OF LIMB
[2019-06-07] MEDS ORDERED: DUONEB 0.5-3 MG/3 ml Neb IH ONE (16:10)
[2019-06-07] MEDS ORDERED: PROVENTIL 2.5 MG/3 ML NEB IH ONE (16:16)
[2019-06-07] MEDS: PROVENTIL 2.5 MG/3 ML NEB IH SCH (16:49)
[2019-06-07] MEDS: ELIQUIS 2.5 MG TABLET PO SCH (22:01)
[2019-06-07] MEDS: ECOTRIN 81 MG PO SCH (22:01)
[2019-06-07] MEDS: Imdur 60MG PO SCH (22:03)
[2019-06-07] MEDS: Toprol Xl 50 MG PO SCH (22:04)
[2019-06-07] MEDS: Requip 0.5 MG PO SCH (22:04)
[2019-06-07] MEDS ORDERED: PROVENTIL 2.5 MG/3 ML NEB IH SCH (23:00)
[2019-06-08] MEDS ORDERED: DUONEB 0.5-3 MG/3 ml Neb IH ONE (07:24)
[2019-06-08] MEDS: Norco 10/325 MG Tablet PO PRN (08:04)
[2019-06-08] MEDS: Lantus Insulin SQ SCH (08:43)
[2019-06-08] MEDS: Lexapro 10 MG PO SCH (08:45)
[2019-06-08] MEDS: ELIQUIS 2.5 MG TABLET PO SCH (08:49)
[2019-06-08] MEDS: hydroDIURIL 25 MG PO SCH (08:52)
[2019-06-08] MEDS: PROVENTIL 2.5 MG/3 ML NEB IH SCH ×2 (08:53→14:12)
[2019-06-08] MEDS: Zestril 20 MG PO SCH (08:53)
[2019-06-08] MEDS: VANCOMYCIN 2 GRAM/400 ML BAG 2 GM/400 ML PIGGYBACK IV SCH (10:20)
[2019-06-08] MEDS ORDERED: ULTRAM 50 MG PO ONE (11:17)
[2019-06-08] MEDS: NovoLOG Insulin SQ PRN (12:31)
--- NOTE | 2019-06-08 12:38 | PCM.DS ---
Discharge Summary Date of Admission: 06/05/19 13:15 Admitting Physician: GERALDINE PEARSON Primary Care Provider: GERALDINE PAERSON Allergies Allergies Penicillins Allergy (Unknown, Verified 06/05/19 10:52) Hospital Summary - Hospital Course Hospital Course: Patient was admitted for cellulitis right LE ,this is a recurrent problem.He is diabetic controlled on oral meds and also has hypertension. Both normalized after infection improved.His WBC has gradually improved . Today he is feeling better less pain and swelling in right low leg.Has Hx headaches and today Headache is dulled by Hydrocodone dose 3 hours ago. At home he uses 2 Aleives for these generalized headaches,not advisable since Eliquis at bid dose now due to tight swelling right lower leg. Hypokalemia was addressed. Strep was positive in ER ,patient was not aware of throat infection but has chronically enlarged right tonsil(per ).Throat culture pending but tonsil large and cryptic but not red and no exudate. - Vitals & Intake/Output Vital Signs: Vital Signs Temperature 98.2 F 06/08/19 08:00 Pulse Rate 87 06/08/19 08:54 Respiratory Rate 18 06/08/19 08:54 Blood Pressure 133/69 06/08/19 08:00 O2 Sat by Pulse Oximetry 95 06/08/19 08:54 Intake & Output: Intake & Output 06/06/19 06/07/19 06/08/19 06/09/19 11:59 11:59 11:59 11:59 Intake Total 2975 5029 3146 Balance 2975 5029 3146 Weight 173.9 kg 176.9 kg 176.8 kg - Lab Result Diagrams: 06/08/19 16:15 06/08/19 16:15 Lab Results-Last 24 Hrs: Accuchecks Accucheck Value: 118 Accucheck Value: 224 Accucheck Value: 207 Lab Results-Last 24 Hours 06/07/19 06/07/19 Range/Units 06:15 18:30 Segmented Neutrophils 57 (36.-66.) % Band Neutrophils 16 H (0.0-2.0) % Lymphocytes (Manual) 15 L (24-44) % Monocytes (Manual) 10 (0.0-12.0) % Eosinophils (Manual) 1 (0.00-3.0) % Basophils (Manual) 1 (0.0-1.0) % Platelet Estimate DECREASED (NORMAL) RBC Morphology NORMAL Potassium 3.3 L (3.5-5.1) mmol/L Micro Results-Entire Visit: Microbiology 06/05/19 03:33 Blood Culture - Preliminary Blood NO GROWTH TO DATE 06/05/19 03:33 Blood Culture - Preliminary Blood NO GROWTH TO DATE Accuchecks Accucheck Value: 118 Accucheck Value: 224 Accucheck Value: 207 - Procedures and Test Procedures and Tests throughout Hospitalization: Therapy Orders & Screens 06/05/19 14:09 OT Screen per Nursing Assess ONCE Comment: Protocol Order Physician Instructions: Greater than 3 points order OT Admission Screening Reason For Exam: Triggered on Admission Diagnosis: cellulitis Open Wound/Cellutlitis/Pressure Ulcers: Yes Acute Fx/ORIF/Change in wt bearing status: No Severe MUSCULOSKELETAL pain: No ADL Dysfunction: No Acute CVA w/Hemiparesis/Hemiplegia: No Decreased Functional Mobility/Strength: No Sprain/Strain: No Acute Post-op Mobility Dysfunction: No Total Points: 5 PT Screen per Nursing Assess ONCE Comment: Protocol Order Physician Instructions: Greater than 3 points order PT Admission Screenin Reason For Exam: Triggered on Admission Diagnosis: cellulitis Open Wound/Cellutlitis/Pressure Ulcers: Yes Acute Fx/ORIF/Change in wt bearing status: No Severe MUSCULOSKELETAL pain: No ADL Dysfunction: No Acute CVA w/Hemiparesis/Hemiplegia: No Decreased Functional Mobility/Strength: No Sprain/Strain: No Acute Post-op Mobility Dysfunction: No Total Points: 5 RT Screen per Nursing Assess ONCE Comment: Protocol Order Physician Instructions: Greater than 3 points order RT Admission Screen Reason For Exam: Triggered on Admission Diagnosis: cellulitis Diagnosis: cellulitis Pneumonia: No Home O2: No Asthma: No CHF: No Home CPAP/BIPAP: Yes Home Nebs/MDI: Yes Total Points: 10 06/05/19 18:26 Respiratory Therapy Assessment DAILY Comment: Diagnosis: cellulitis 06/07/19 16:11 Peak Expiratory Flow Rate ONCE Comment: Reason For Exam: Diagnosis: cellulitis Discharge Exam Wound Assessment: Skin/Wound Assessment Wound/Incision Assessment Start: 06/05/19 14: 00 Text: Status: Active Freq: Q6H Protocol: Document 06/08/19 08:00 AR (Rec: 06/08/19 08:21 AR [id number]) Wound/Incision Assessment Right Lower Calf Wound Assessment Shift Assessment Wound Type CELLULITIS Wound Stage Non Pressure Wound Drainage Amount None General Appearance Open to air Reddened Surrounding Tissue Bright Red Comment RED AND WARM TO THE TOUCH, SMALL SCABBED AREA NOTED ON ANTERIOR LEG, BLISTERING NOTED ON MEDIAL LEG, NO DRAINAGE NOTED Final Diagnosis/Problem List - Final Discharge Diagnosis/Problem (1) Cellulitis of right leg Current Visit: No Status: Acute Assessment & Plan: continue IV Vancomycin BID dose per Pharmacy orders Code(s): L03.115 - CELLULITIS OF RIGHT LOWER LIMB (2) Hypokalemia Current Visit: Yes Status: Acute Assessment & Plan: started Kdur 10 meq and test at infusion tomorrow Code(s): E87.6 - HYPOKALEMIA (3) Wheezing on right side of chest on exhalation Current Visit: Yes Status: Resolved Code(s): R06.2 - WHEEZING (4) Type 2 diabetes, uncontrolled, with cellulitis of foot Current Visit: No Status: Chronic Assessment & Plan: continue diabetic diet and home meds. Code(s): E11.628 - TYPE 2 DIABETES MELLITUS WITH OTHER SKIN COMPLICATIONS; E11.65 - TYPE 2 DIABETES MELLITUS WITH HYPERGLYCEMIA; L03.119 - CELLULITIS OF UNSPECIFIED PART OF LIMB - Discharge Disposition: Home, Self-Care Condition: Stable Prescriptions: No Action Metformin HCl 500 mg [Glucophage 500 MG] 1,000 mg PO BID Aspirin 81 gm Chew [Baby Aspirin 81 mg Chew] 81 mg PO QHS Escitalopram Oxalate [Lexapro] 20 mg PO DAILY Lisinopril/Hydrochlorothiazide [Lisinopril-Hctz 20-12.5 mg Tab] 12.5 mg PO BID Glucosam/Chond/Collagen/Hyalur [Glucosamine Chondroitin Cap] 1,000 mg PO BID Atorvastatin Calcium 40 mg PO QHS Metoprolol Succinate 50 mg PO QHS Isosorbide Mononitrate [Isosorbide Mononitrate ER] 60 mg PO QHS Nitroglycerin 0.4 mg SL UD PRN PRN Reason: Chest Pain Ropinirole HCl 0.5 mg PO QHS Apixaban [Eliquis] 5 mg PO HS Empagliflozin [Jardiance] 25 mg PO QAM Insulin Glargine [Lantus Insulin] 50 unit SQ BID Exenatide Microspheres [Bydureon Bcise] 2 mg SQ WEEKLY Albuterol Sulfate [Proair Hfa] 8.5 gm IH Q6HPRN PRN PRN Reason: dyspnea Outpatient Orders: BMP Location: LABORATORY CBC W DIFF Location: LABORATORY Follow up with: GERALDINE PEARSON MD [Primary Care Provider] - 1 Week
[2019-06-08 12:59] LABS: ALBUMIN 3.5 g/dL (3.5-5.0); ALKALINE PHOSPHATASE 102 U/L (38-126); ANION GAP 12.9 MEQ/L (5-15); BLOOD UREA NITROGEN 12 mg/dL (9-20); CHLORIDE 99 mmol/L (98-107); Calcium 8.7 mg/dL (8.4-10.2); Carbon Dioxide 28 mmol/L (22-30); Creatinine 1 0.79 mg/dL (0.66-1.25); Glucose 147 mg/dL (74-106); SGOT/AST 46 U/L (17-59); SGPT/ALT 27 U/L (0-50); SODIUM 137 mmol/L (137-145); Total Protein 7.1 g/dL (6.3-8.2)
[2019-06-08 13:07] LABS: Potassium 2.8 mmol/L (3.5-5.1)
[2019-06-08] MEDS ORDERED: POTASSIUM CHLORIDE 20 mEq IN WATER 100ML 20 MEQ/100 ML BAG IV ONE (13:50)
[2019-06-08] MEDS ORDERED: Klor Con 10 MEQ PO ONE (14:00)
[2019-06-08] MEDS ORDERED: K-LYTE 25 MEQ PO ONE (14:12)
[2019-06-08] MEDS ORDERED: Sodium Chloride 0.9% 500 ML 500 ML IV SCH (14:15)
[2019-06-08 16:36] LABS: Hematocrit 42.5 % (42-50); Hemoglobin 14.1 gm/dl (12.5-18.0); Mean Cell Volume 89.1 fl (78-100); Mean Corpuscular Hemoglobin 29.6 pg (26-32); Mean Corpuscular Hgb Concent. 33.2 g/dl (32-36); Mean Platelet Volume 9.7 fl (6-9.5); Platelet Count 169 K/mm3 (150-450); Red Blood Count 4.77 M/mm3 (4.1-5.6); Red Cell Distribution Width 13.7 % (11.5-14.0); White Blood Count 12.4 K/mm3 (4.0-10.5)
[2019-06-08 17:06] VITALS: BP 125/60; PULSE 81; O2SAT 96
[2019-06-08 17:51] LABS: BAND 10 % (0.0-2.0); Basophil 1 % (0.0-1.0); Eosinophil 1 % (0.00-3.0); Lymphocytes 15 % (24-44); Monocyte 4 % (0.0-12.0); Neutrophils 69 % (36.-66.); Platelet Estimate NORMAL (NORMAL); Total Cells Counted 100
== END 2019-06-08 18:48 | disposition home or self-care (01) | DRG 638 ==
LOC: ED 10:31 → MED SURG 13:15
PROVIDERS: ADMIT Family Medicine; ATTEND Family Medicine
DX: E11.628 Type 2 diabetes mellitus with other skin complications (principal); L03.115 Cellulitis of right lower limb; E11.65 Type 2 diabetes mellitus with hyperglycemia; E87.6 Hypokalemia; R06.2 Wheezing; Z79.01 Long term (current) use of anticoagulants; Z79.899 Other long term (current) drug therapy; R51 Headache; I10 Essential (primary) hypertension; E78.00 Pure hypercholesterolemia, unspecified; J02.0 Streptococcal pharyngitis
CPT/HCPCS: 36000; 36415; 80053; 80202; 81001; 82150; 82962; 83605; 83690; 84132; 85025; 86308; 87040; 87631; 87651; 94150; 94640; 94760; 96360; 96361; 96365; 96374; 96375; 99285; 99291; J2405; J3370; J3480; J7609; A9270-GY

== ENCOUNTER 2020-09-28 21:01 | Emergency (ER) | payer BC ==
[2020-09-28] MEDS ORDERED: VANCOMYCIN 1 GRAM/200 ML BAG 1 GM/200 ML PIGGYBACK IV ONE ×2 (21:25→22:24)
[2020-09-28] MEDS ORDERED: Sodium Chloride 0.9% 1000 ML 1,000 ML IV SCH (21:30)
[2020-09-28] MEDS ORDERED: CLINDAMYCIN-D5W 900 MG/50 ML*** 900 MG/50 ML BAG IV STA (21:31)
[2020-09-28] MEDS ORDERED: Sodium Chloride 0.9% 1000 ML 1,000 ML ONE (21:56)
[2020-09-28] MEDS ORDERED: CLINDAMYCIN-D5W 900 MG/50 ML*** 900 MG/50 ML BAG IV ONE (21:56)
[2020-09-28 22:01] LABS: Hematocrit 41.6 % (42-50); Mean Cell Volume 89.3 fl (78-100); Mean Corpuscular Hgb Concent. 33.7 g/dl (32-36); Platelet Count 209 K/mm3 (150-450); Red Blood Count 4.66 M/mm3 (4.1-5.6); Red Cell Distribution Width 13.2 % (11.5-14.0); White Blood Count 13.3 K/mm3 (4.0-10.5)
[2020-09-28 22:12] LABS: Appearance CLEAR (CLEAR); Bilirubin NEGATIVE (NEGATIVE); Blood NEGATIVE Ery/ul (0-5); Glucose >=500 mg/dL (NEGATIVE); Ketones TRACE (NEGATIVE); Leukocyte Esterase NEGATIVE (NEGATIVE); Nitrite NEGATIVE (NEGATIVE); Protein,Urine Dip NEGATIVE (Negative); Urobilinogen NEGATIVE mg/dL (0-1)
[2020-09-28 22:21] LABS: ALBUMIN 3.3 g/dL (3.5-5.0); ANION GAP 13.9 MEQ/L (5-15); BILIRUBIN,TOTAL 0.5 mg/dL (0.2-1.3); Calcium 8.4 mg/dL (8.4-10.2); Creatinine 1 1.34 mg/dL (0.66-1.25); Potassium 3.8 mmol/L (3.5-5.1); Total Protein 6.5 g/dL (6.3-8.2)
--- NOTE | 2020-09-28 23:20 | ERPHSYRPT ---
- History of Present Illness Time Seen by Provider: 09/28/20 21:10 Exam Limitations: no limitations Patient Subjective Stated Complaint: pt c/o redness and warmth to abd area since last , was seen at [facility] on Sunday and started on atb. Triage Nursing Assessment: pt c/o having cellulitis to rt lower abd area. Abd is lg, obese. Abd is red, warm, indurated, fever off and on, pain comes and goes. Pt has golfball sized red area to lt wrist area, which had blisters that have popped. Physician History: Patient is a 55-year-old male presents to our emergency department with complaints of cellulitis to his right lower quadrant. Patient has a history of cellulitis. Patient went to an ambu care and was started on antibiotics. Kristy serna is not aware of the particular antibiotic that he is currently on. Patient states that he usually requires vancomycin and hospitalization when he developed cellulitis. Patient symptoms are progressive. Symptoms are moderate in intensity. Pain worse with palpation to the area of involvement. Pain improved with rest. No trauma. Patient admits to subjective fevers. No diarrhea. No nausea or vomiting. Patient also has a healing superficial blister at the volar aspect of his left wrist. Patient states that he tends to develop these blisters whenever he develops a significant cellulitis. No chest pain or shortness of breath. Timing/Duration: day(s) (5 days ago) Severity: moderate Modifying Factors: Improves With: nothing Associated Symptoms: denies symptoms Allergies/Adverse Reactions: Penicillins Allergy (Unknown, Verified 09/28/20 21:25) Home Medications: Aspirin 81 gm Chew [Baby Aspirin 81 mg Chew] 81 mg PO QHS 11/06/15 [History] Metformin HCl 500 mg [Glucophage 500 MG] 1,000 mg PO BID 11/06/15 [Histo ry] Escitalopram Oxalate [Lexapro] 20 mg PO DAILY 11/10/15 [History] Glucosam/Chond/Collagen/Hyalur [Glucosamine Chondroitin Cap] 1,000 mg PO BID 02/10/16 [History] Lisinopril/Hydrochlorothiazide [Lisinopril-Hctz 20-12.5 mg Tab] 12.5 mg PO BID 02/10/16 [History] Atorvastatin Calcium 40 mg PO QHS 03/26/17 [History] Isosorbide Mononitrate [Isosorbide Mononitrate ER] 60 mg PO QHS 03/26/17 [History] Metoprolol Succinate 50 mg PO QHS 03/26/17 [History] Nitroglycerin 0.4 mg SL UD PRN 03/26/17 [History] Ropinirole HCl 0.5 mg PO QHS 03/26/17 [History] Albuterol Sulfate [Proair Hfa] 8.5 gm IH Q6HPRN PRN 06/05/19 [History] Empagliflozin [Jardiance] 25 mg PO QAM 06/05/19 [History] Cholecalciferol (Vitamin D3) [Vitamin D] 1.25 mg PO WEEKLY 09/28/20 [History] Glimepiride 4 mg [Amaryl 4 mg] 4 mg PO HS 09/28/20 [History] Sulfamethoxazole/Trimethoprim [Sulfamethoxazole-Tmp Ds Tablet] 1 each PO BID 09/28/20 [History] cephALEXin [Cephalexin] 500 mg PO QID 09/28/20 [History] Hx Tetanus, Diphtheria Vaccination/Date Given: Yes Hx Influenza Vaccination/Date Given: No Hx Pneumococcal Vaccination/Date Given: No Immunizations Up to Date: Yes Travel Risk - International Travel Have you traveled outside of the country in past 3 weeks: No - Coronavirus Screening Are you exhibiting any of the following symptoms?: Yes Symptoms: Fever, Vomiting/Diarrhea Close contact with a COVID-19 positive Pt in past 14-21 Days: No - Vaccine Status Have you recieved a Covid-19 vaccination: No - Review of Systems Constitutional: No Symptoms, No Fever, No Chills Eyes: No Symptoms Ears, Nose, & Throat: No Symptoms Respiratory: No Symptoms, No Cough, No Dyspnea Cardiac: No Symptoms, No Chest Pain, No Edema, No Syncope Abdominal/Gastrointestinal: No Symptoms, No Abdominal Pain, No Nausea, No Vomiting, No Diarrhea Genitourinary Symptoms: No Symptoms, No Dysuria Musculoskeletal: No Symptoms, No Back Pain, No Neck Pain Skin: No Symptoms, No Rash Neurological: No Symptoms, No Dizziness, No Focal Weakness, No Sensory Changes Psychological: No Symptoms Endocrine: No Symptoms Hematologic/Lymphatic: No Symptoms Immunological/Allergic: No Symptoms All Other Systems: Reviewed and Negative - Past Medical History Pertinent Past Medical History: Yes Neurological History: No Pertinent History ENT History: No Pertinent History Cardiac History: Angina, High Cholesterol, Hypertension Respiratory History: Sleep Apnea Endocrine Medical History: Diabetes Type II Musculoskeletal History: Other GI Medical History: No Pertinent History History: No Pertinent History Psycho-Social History: Anxiety Male Reproductive Disorders: No Pertinent History Other Medical History: chronic joint pain, restless leg syndrome, cellulitis BLE - Past Surgical History Past Surgical History: Yes Neuro Surgical History: No Pertinent History Cardiac: Cardiac Catheterization Respiratory: No Pertinent History Gastrointestinal: No Pertinent History Genitourinary: No Pertinent History Musculoskeletal: No Pertinent History Male Surgical History: No Pertinent History Other Surgical History: heart catheterization appx 1 year ago in [place] revealed 70% blockage - Social History Smoking Status: Never smoker Exposure to second hand smoke: No Drug Use: none Patient Lives Alone: No - Nursing Vital Signs Nursing Vital Signs: Initial Vital Signs Temperature 99.3 F 09/28/20 21:02 Pulse Rate 117 H 09/28/20 21:02 Respiratory Rate 24 09/28/20 21:02 Blood Pressure 113/69 09/28/20 21:02 O2 Sat by Pulse Oximetry 98 09/28/20 21:02 Pain Scale Pain Intensity [] 6 Pain Intensity 0 - Physical Exam General Appearance: no apparent distress, alert Eye Exam: PERRL/EOMI, eyes nml inspection Ears, Nose, Throat Exam: normal ENT inspection, TMs normal, pharynx normal, moist mucous membranes Neck Exam: normal inspection, non-tender, supple, full range of motion Respiratory Exam: normal breath sounds, lungs clear, No respiratory distress Cardiovascular Exam: regular rate/rhythm, normal heart sounds, normal peripheral pulses Gastrointestinal/Abdomen Exam: soft, normal bowel sounds, other (10 x 10 area of cellulitis right lower quadrant. The involved area is indurated. No drainage.), No tenderness, No mass Back Exam: normal inspection, normal range of motion, No CVA tenderness, No vertebral tenderness Extremity Exam: normal inspection, normal range of motion, pelvis stable Neurologic Exam: alert, oriented x 3, cooperative, normal mood/affect, nml cerebellar function, nml station & gait, sensation nml, No motor deficits Skin Exam: normal color, warm, dry, No rash Lymphatic Exam: No adenopathy SpO2 Interpretation: normal SpO2: 96 O2 Delivery: Room Air - Course Nursing assessment & vital signs reviewed: Yes - CT Exams Abdomen/Pelvis CT Interpretation: Tele-radiologist Report (Morbid obesity. Extensive soft tissue emphysema throughout the right lower quadrant panniculus at the level of the umbilicus with inflammation and thickening of the epidermis most consistent with cellulitis with possible necrotizing fasciitis. 4.1 x 3.4 x 2.3 cm possible abscess in the subcutaneou) Ordered Tests: Active Orders 24 hr Category Date Time Status Supervisor Pleating STAT Care 09/28/20 21:24 Active IV Insertion STAT Care 09/28/20 21:23 Active Pulse Oximetry (ED) STAT Care 09/28/20 21:23 Active ABDOMEN AND PELVIS W CONTRAST [CT] Stat Exams 09/28/20 23:00 Taken BLOOD CULTURE Stat Lab 09/28/20 21:50 Received CBC W DIFF Stat Lab 09/28/20 21:45 Completed CMP Stat Lab 09/28/20 21:45 Completed Lactic Acid Stat Lab 09/28/20 21:51 Completed Lactic Acid Stat Lab 09/29/20 01:47 Completed Manual Differential NC Stat Lab 09/28/20 21:45 Completed UA W/RFX UR CULTURE Stat Lab 09/28/20 21:55 Completed Medication Summary Generic Name Dose Route Start Last Admin Trade Name Freq PRN Reason Stop Dose Admin Sodium Chloride 1,000 mls @ 100 mls/hr 09/28/20 21:30 09/28/20 21:59 Sodium Chloride 0.9% 1000 Ml IV 10/28/20 21:29 100 mls/hr .Q10H THANG Administration Discontinued Medications Generic Name Dose Route Start Last Admin Trade Name Freq PRN Reason Stop Dose Admin Vancomycin HCl 1 gm in 200 mls @ 125 mls/hr 09/28/20 21:25 09/28/20 22:26 Vancomycin 1 Gram/200 Ml Bag IV 09/28/20 23:00 125 ml/hr STAT ONE 125 mls/hr Administration Clindamycin HCl/Dextrose 900 mg in 50 mls @ 100 mls/hr 09/28/20 21:31 09/28/20 21:59 Clindamycin-D5w 900 Mg/50 Ml IV 09/28/20 22:00 100 ml/hr STAT STA 100 mls/hr Administration Clindamycin HCl/Dextrose Confirm 09/28/20 21:56 Clindamycin-D5w 900 Mg/50 Ml Administered 09/28/20 21:57 Dose 900 mg in 50 mls @ ud IV .STK-MED ONE Vancomycin HCl Confirm 09/28/20 22:24 Vancomycin 1 Gram/200 Ml Bag Administered 09/28/20 22:25 Dose 1 gm in 200 mls @ ud IV .STK-MED ONE Sodium Chloride 1,000 mls @ 999 mls/hr 09/29/20 01:28 09/29/20 02:15 Sodium Chloride 0.9% 1000 Ml IV 09/29/20 02:28 999 mls/hr .Q1H1M STA Administration Lab/Rad Data: Laboratory Result Diagrams 09/28/20 21:45 09/28/20 21:45 Laboratory Results 09/29/20 09/28/20 09/28/20 Range/Units 01:47 23:45 21:55 WBC (4.0-10.5) K/mm3 RBC (4.1-5.6) M/mm3 Hgb (12.5-18.0) gm/dl Hct (42-50) % MCV (78-100) fl MCH (26-32) pg MCHC (32-36) g/dl RDW (11.5-14.0) % Plt Count (150-450) K/mm3 MPV (7.5-11.0) fl Segmented Neutrophils (36.-66.) % Band Neutrophils (0.0-2.0) % Lymphocytes (Manual) (24-44) % Monocytes (Manual) (0.0-12.0) % Platelet Estimate (NORMAL) RBC Morphology Sodium (137-145) mmol/L Potassium (3.5-5.1) mmol/L Chloride (98-107) mmol/L Carbon Dioxide (22-30) mmol/L Anion Gap (5-15) MEQ/L BUN (9-20) mg/dL Creatinine (0.66-1.25) mg/dL Estimated GFR ML/MIN Glucose (74-106) mg/dL Lactic Acid 1.6 (0.4-2.0) Calcium (8.4-10.2) mg/dL Total Bilirubin (0.2-1.3) mg/dL AST (17-59) U/L ALT (0-50) U/L Alkaline Phosphatase (38-126) U/L Serum Total Protein (6.3-8.2) g/dL Albumin (3.5-5.0) g/dL Urine Color STRAW (YELLOW) Urine Appearance CLEAR (CLEAR) Urine pH 6.0 (5-6) Ur Specific [place] 1.030 (1.005-1.025) Urine Protein NEGATIVE (Negative) Urine Ketones TRACE (NEGATIVE) Urine Blood NEGATIVE (0-5) Dre/ul Urine Nitrite NEGATIVE (NEGATIVE) Urine Bilirubin NEGATIVE (NEGATIVE) Urine Urobilinogen NEGATIVE (0-1) mg/dL Ur Leukocyte Esterase NEGATIVE (NEGATIVE) Urine WBC (Auto) NONE (0-5) /HPF Urine RBC (Auto) NONE (0-2) /HPF U Epithel Cells (Auto) NONE (FEW) /HPF Urine Bacteria (Auto) NONE (NEGATIVE) /HPF Urine Culture Reflexed NO (NO) Urine Glucose >=500 (NEGATIVE) mg/dL Influenza Type A Ag NEGATIVE (NEGATIVE) Influenza Type B Ag NEGATIVE (NEGATIVE) RSV (PCR) NEGATIVE (Negative) SARS-CoV-2 (PCR) NEGATIVE (NEGATIVE) 09/28/20 09/28/20 09/28/20 Range/Units 21:51 21:45 21:45 WBC 13.3 H (4.0-10.5) K/mm3 RBC 4.66 (4.1-5.6) M/mm3 Hgb 14.0 (12.5-18.0) gm/dl Hct 41.6 L (42-50) % MCV 89.3 (78-100) fl MCH 30.0 (26-32) pg MCHC 33.7 (32-36) g/dl RDW 13.2 (11.5-14.0) % Plt Count 209 (150-450) K/mm3 MPV 9.0 (7.5-11.0) fl Segmented Neutrophils 88 H (36.-66.) % Band Neutrophils 4 H (0.0-2.0) % Lymphocytes (Manual) 5 L (24-44) % Monocytes (Manual) 3 (0.0-12.0) % Platelet Estimate NORMAL (NORMAL) RBC Morphology NORMAL Sodium 127 L (137-145) mmol/L Potassium 3.8 (3.5-5.1) mmol/L Chloride 95 L (98-107) mmol/L Carbon Dioxide 22 (22-30) mmol/L Anion Gap 13.9 (5-15) MEQ/L BUN 26 H (9-20) mg/dL Creatinine 1.34 H (0.66-1.25) mg/dL Estimated GFR 59.0 ML/MIN Glucose 335 H (74-106) mg/dL Lactic Acid 1.9 (0.4-2.0) Calcium 8.4 (8.4-10.2) mg/dL Total Bilirubin 0.50 (0.2-1.3) mg/dL AST 20 (17-59) U/L ALT 17 (0-50) U/L Alkaline Phosphatase 106 (38-126) U/L Serum Total Protein 6.5 (6.3-8.2) g/dL Albumin 3.3 L (3.5-5.0) g/dL Urine Color (YELLOW) Urine Appearance (CLEAR) Urine pH (5-6) Ur Specific [place] (1.005-1.025) Urine Protein (Negative) Urine Ketones (NEGATIVE) Urine Blood (0-5) Dre/ul Urine Nitrite (NEGATIVE) Urine Bilirubin (NEGATIVE) Urine Urobilinogen (0-1) mg/dL Ur Leukocyte Esterase (NEGATIVE) Urine WBC (Auto) (0-5) /HPF Urine RBC (Auto) (0-2) /HPF U Epithel Cells (Auto) (FEW) /HPF Urine Bacteria (Auto) (NEGATIVE) /HPF Urine Culture Reflexed (NO) Urine Glucose (NEGATIVE) mg/dL Influenza Type A Ag (NEGATIVE) Influenza Type B Ag (NEGATIVE) RSV (PCR) (Negative) SARS-CoV-2 (PCR) (NEGATIVE) - Progress Progress: improved Progress Note: 09/29/20 00:23 Case discussed with on-call general surgeon Dr. Prieto from the [facility] who advises transfer due to high risk. We are attempting transfer to [facility]. Patient received antibiotics. Vancomycin and clindamycin infused. 09/29/20 02:53 We attempted to transfer to [facility] however the transfer was declined by the trauma service. They stated that they did not have the facilities to perform reconstructive surgery on our patient. We attempted transfer to [facility] however they were unable to accommodate us. They would not have any beds available to the morning. We contacted [facility] in [place]. Spoke to Dr. Pat general surgeon at [facility] who accepted transfer. Plan of care discussed with patient and . They agree to transfer to [facility] for further evaluation and treatment. Transfer will take place via medic helicopter. 09/29/20 03:38 09/29/20 03:40 Discussed with .: Benoit Will see patient in: other Counseled pt/family regarding: lab results, diagnosis, rad results - Departure Departure Disposition: Home Clinical Impression: Abdominal wall cellulitis, Necrotizing fasciitis, Abscess, Leukocytosis, Hyponatremia, Bandemia, SIRS (systemic inflammatory response syndrome), Acute renal injury, Hyperglycemia Condition: Stable Critical Care Time: Yes Critical Care Time(excluding separately billable procedures): Critical 30-74 mins Referrals: GERALDINE PEARSON MD [Primary Care Provider] -
[2020-09-29 00:24] LABS: INFLUENZA A NEGATIVE (NEGATIVE); INFLUENZA B NEGATIVE (NEGATIVE); RESPIRATORY SYNCTIAL VIRUS NEGATIVE (Negative)
[2020-09-29 00:39] LABS: BAND 4 % (0.0-2.0); Lymphocytes 5 % (24-44); Monocyte 3 % (0.0-12.0); Neutrophils 88 % (36.-66.); Platelet Estimate NORMAL (NORMAL); Total Cells Counted 100
[2020-09-29] MEDS ORDERED: Sodium Chloride 0.9% 1000 ML 1,000 ML IV STA (01:28)
[2020-09-29] MEDS ORDERED: Sodium Chloride 0.9% 1000 ML 1,000 ML ONE ×2 (01:31→03:39)
[2020-09-29 03:12] VITALS: BP 125/68; PULSE 104
[2020-09-29 03:14] VITALS: O2SAT 96
[2020-09-29] MEDS ORDERED: Sodium Chloride 0.9% 1000 ML 1,000 ML IV SCH (03:45)
--- NOTE | 2020-09-29 08:55 | XRAY ---
Indication: Right lower quadrant pain. Multiple contiguous axial images obtained through the abdomen and pelvis using 80 cc Isovue 370 contrast. Comparison: None Lung bases are clear. Heart is not enlarged. Noncontrasted stomach and bowel loops appear nonobstructed. Normal appendix. No free fluid/air. Mild fatty hepatomegaly measuring 26.1 cm. Gallbladder contracted without gallstones. Splenomegaly measuring 15.2 cm. Right kidney demonstrates 2 cortical cysts, largest 2 cm. Remaining liver, gallbladder, pancreas, spleen, adrenal glands, kidneys, ureters, and bladder appear unremarkable. Minimal scattered aortoiliac calcifications. No AAA or pathologic retroperitoneal lymphadenopathy. Osseous structures with mild/moderate degenerative endplate spurring throughout the spine. Right mid abdominal wall demonstrates large subcutaneous focus of induration with subcutaneous emphysema overall measuring at least 4.1 x 3.4 x 2.3 cm favoring cellulitis, possibly necrotizing fasciitis. 2.4 x 3.3 cm associated fluid collection concerning for abscess. Impression: 1. Right abdominal wall cellulitis/necrotizing fasciitis with small abscess. 2. Incidental fatty hepatomegaly, splenomegaly, and right renal cysts. Comment: Preliminary interpretation was made by [facility]. No critical discrepancy.
== END 2020-09-29 03:40 | disposition short-term general hospital (02) ==
LOC: ED 21:01
DX: L03.311 Cellulitis of abdominal wall (principal); M72.6 Necrotizing fasciitis; L02.91 Cutaneous abscess, unspecified; D72.829 Elevated white blood cell count, unspecified; E87.1 Hypo-osmolality and hyponatremia; D72.825 Bandemia; R65.10 Systemic inflammatory response syndrome (SIRS) of non-infectious origin without acute organ dysfunction; N17.9 Acute kidney failure, unspecified; E11.65 Type 2 diabetes mellitus with hyperglycemia; Z79.4 Long term (current) use of insulin; Z79.899 Other long term (current) drug therapy; I10 Essential (primary) hypertension; E78.00 Pure hypercholesterolemia, unspecified; G47.30 Sleep apnea, unspecified; F51.9 Sleep disorder not due to a substance or known physiological condition, unspecified
CPT/HCPCS: 0241U; 36000; 36415; 74177; 80053; 81001; 82947; 83605; 85025; 87040; 93041; 94760; 96360; 96361; 96365; 96367; 99285; 99291; J3370

== ENCOUNTER 2020-12-26 21:02 | Observation (INO) | payer BC ==
[2020-12-26] MEDS ORDERED: TYLENOL 325 MG PO STA (22:42)
[2020-12-26] MEDS ORDERED: Zofran 4 MG/2 ML VIAL IV STA (22:42)
[2020-12-26] MEDS ORDERED: Sodium Chloride 0.9% 1000 ML 1,000 ML IV STA (22:42)
[2020-12-26] MEDS ORDERED: AZACTAM 1 GM*** 2 GM in Sodium Chloride 0.9% 100 ML BAG 100 ML IV ONE (22:43)
[2020-12-26 22:57] LABS: Absolute Neutrophil Ct (ANC) 10.72 (1.4-6.9); BASOPHIL % 0.5 % (0.0-0.4); Basophil (Absolute #) 0.06 (0-0.4); Eosinophil (Absolute #) 0.12 (0-0.5); Hematocrit 50.1 % (42-50); Hemoglobin 16.2 gm/dl (12.5-18.0); Lymphocyte (Absolute #) 0.97 (1.0-4.6); Lymphocytes % 7.7 % (24.0-44.0); Mean Cell Volume 90.3 fl (78-100); Mean Corpuscular Hemoglobin 29.2 pg (26-32); Mean Corpuscular Hgb Concent. 32.3 g/dl (32-36); Mean Platelet Volume 10.6 fl (7.5-11.0); Monocyte (Absolute #) 0.73 (0.0-1.3); Monocytes % 5.8 % (0.0-12.0); Platelet Count 152 K/mm3 (150-450); Red Blood Count 5.55 M/mm3 (4.1-5.6); Red Cell Distribution Width 14.5 % (11.5-14.0); White Blood Count 12.6 K/mm3 (4.0-10.5)
[2020-12-26 23:08] LABS: ALBUMIN 4.1 g/dL (3.5-5.0); ALKALINE PHOSPHATASE 95 U/L (38-126); ANION GAP 14.3 MEQ/L (5-15); BLOOD UREA NITROGEN 22 mg/dL (9-20); CHLORIDE 101 mmol/L (98-107); Calcium 9.1 mg/dL (8.4-10.2); Carbon Dioxide 25 mmol/L (22-30); EST GLOMERULAR FILTRATION RATE > 60.0 ML/MIN; Glucose 230 mg/dL (74-106); SGOT/AST 26 U/L (17-59); SGPT/ALT 22 U/L (0-50); SODIUM 136 mmol/L (137-145)
[2020-12-26] MEDS ORDERED: Zofran 4 MG/2 ML VIAL ONE (23:18)
[2020-12-26] MEDS ORDERED: VIBRAMYCIN 100 MG IV ONE (23:18)
[2020-12-26] MEDS ORDERED: TYLENOL 325 MG ONE (23:18)
[2020-12-26 23:19] LABS: Appearance CLEAR (CLEAR); Bacteria RARE /HPF (NEGATIVE); Bilirubin NEGATIVE (NEGATIVE); Blood NEGATIVE Ery/ul (0-5); Glucose >=500 mg/dL (NEGATIVE); Ketones TRACE (NEGATIVE); Leukocyte Esterase NEGATIVE (NEGATIVE); Mucus SLIGHT /HPF (NEGATIVE); Nitrite NEGATIVE (NEGATIVE); Protein,Urine Dip NEGATIVE (Negative); RBC 0-2 /HPF (0-2); Specific Gravity 1.029 (1.005-1.025); Sperm PRESENT /HPF (NEGATIVE); Urobilinogen NEGATIVE mg/dL (0-1); WBC 0-2 /HPF (0-5)
[2020-12-26] MEDS ORDERED: Sodium Chloride 0.9% 1000 ML 1,000 ML ONE (23:19)
[2020-12-26] MEDS ORDERED: D5w 100ML Mini Bag 100 ML 100 ML IV ONE ×2 (23:22→23:25)
--- NOTE | 2020-12-26 23:49 | ERPHSYRPT ---
- History of Present Illness Time Seen by Provider: 12/26/20 21:15 Source: patient, family Exam Limitations: no limitations Patient Subjective Stated Complaint: "I think I have cellulitis from a tick." Triage Nursing Assessment: Patient reported having a tick on his right side that was found and removed last sunday. Since then he has develop fever unresponsive to tylenol, malaise, and myalgias. Denied any recent sick contacts. Denied cough, dyspnea, chest pain, dysuria, abdominal pain, N/V/D. Reported significant history of lower extremity cellulitis and having diabetes. Symmetrical chest excursion. Heart tones S1/S2 tachycardic without extra sounds. Lungs vesicular with adequate airflow. Physician History: 55 years old male with history of hypertension, hyperlipidemia, diabetes mellitus presented in the ER with 1 week history of off-and-on fever chills. Patient has been using [id number] antipyretics with symptomatic relief. Patient reports he had a tick on the right lateral chest wall which was removed almost a week ago and has some redness around. Denies any difficulty breathing, cough or abdominal pain nausea vomiting. Denies any urinary symptoms. Denies any sick contact. Did have Covid vaccine. Has minimal headache but no neck pain or difficulty movements of neck. Has a fever of 102 on presentation Timing/Duration: week(s) (1), intermittent, gradual onset, worse Fever Severity: moderate Fever Therapy MUFFLER HAND: Ibuprofen, Acetaminophen Associated Symptoms: muscle aches, rash, No chest pain, No confusion, No cough, No diaphoresis, No headache, No rhinorrhea, No shortness of breath, No stiff neck, No weakness Allergies/Adverse Reactions: Penicillins Allergy (Unknown, Verified 12/26/20 22:28) Home Medications: Aspirin 81 gm Chew [Baby Aspirin 81 mg Chew] 81 mg PO QHS 11/06/15 [History] Metformin HCl 500 mg [Glucophage 500 MG] 1,000 mg PO BID 11/06/15 [History] Escitalopram Oxalate [Lexapro] 20 mg PO DAILY 11/10/15 [History] Glucosam/Chond/Collagen/Hyalur [Glucosamine Chondroitin Cap] 1,000 mg PO BID 02/10/16 [History] Lisinopril/Hydrochlorothiazide [Lisinopril-Hctz 20-12.5 mg Tab] 12.5 mg PO BID 02/10/16 [History] Atorvastatin Calcium 40 mg PO QHS 03/26/17 [History] Isosorbide Mononitrate [Isosorbide Mononitrate ER] 60 mg PO QHS 03/26/17 [History] Metoprolol Succinate 50 mg PO QHS 03/26/17 [History] Nitroglycerin 0.4 mg SL UD PRN 03/26/17 [History] Ropinirole HCl 0.5 mg PO QHS 03/26/17 [History] Albuterol Sulfate [Proair Hfa] 8.5 gm IH Q6HPRN PRN 06/05/19 [History] Empagliflozin [Jardiance] 25 mg PO QAM 06/05/19 [History] Cholecalciferol (Vitamin D3) [Vitamin D] 1.25 mg PO WEEKLY 09/28/20 [History] Glimepiride 4 mg [Amaryl 4 mg] 4 mg PO HS 09/28/20 [History] Insulin Glargine,Hum.rec.anlog [Lantus Solostar] 50 units SQ BID 12/26/20 [History] Hx Tetanus, Diphtheria Vaccination/Date Given: Yes Hx Influenza Vaccination/Date Given: No Hx Pneumococcal Vaccination/Date Given: No Travel Risk - International Travel Have you traveled outside of the country in past 3 weeks: No - Coronavirus Screening Are you exhibiting any of the following symptoms?: Yes Symptoms: Fever Close contact with a COVID-19 positive Pt in past 14-21 Days: No - Vaccine Status Have you recieved a Covid-19 vaccination: Yes 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 - Vaccination Dates Date of 2cond Vaccination (if applicable): Unknown Dates if Unknown: Unknown - Review of Systems Constitutional: Fever, Chills, Fatigue, Weakness Eyes: No Symptoms Ears, Nose, & Throat: No Symptoms Respiratory: No Symptoms Cardiac: No Symptoms Abdominal/Gastrointestinal: No Symptoms Genitourinary Symptoms: No Symptoms Musculoskeletal: Myalgias Skin: Skin Lesions Neurological: No Symptoms Psychological: No Symptoms Endocrine: No Symptoms Hematologic/Lymphatic: No Symptoms Immunological/Allergic: No Symptoms - Past Medical History Pertinent Past Medical History: Yes Neurological History: No Pertinent History ENT History: No Pertinent History Cardiac History: Angina, High Cholesterol, Hypertension Respiratory History: Sleep Apnea Endocrine Medical History: Diabetes Type II Musculoskeletal History: Other GI Medical History: No Pertinent History History: No Pertinent History Psycho-Social History: Anxiety Male Reproductive Disorders: No Pertinent History Other Medical History: chronic joint pain, restless leg syndrome, cellulitis BLE - Past Surgical History Past Surgical History: Yes Neuro Surgical History: No Pertinent History Cardiac: Cardiac Catheterization Respiratory: No Pertinent History Gastrointestinal: No Pertinent History Genitourinary: No Pertinent History Musculoskeletal: No Pertinent History Male Surgical History: No Pertinent History Other Surgical History: heart catheterization appx 1 year ago in [place] revealed 70% blockage - Social History Smoking Status: Never smoker Exposure to second hand smoke: No Drug Use: none Patient Lives Alone: No - Nursing Vital Signs Nursing Vital Signs: Initial Vital Signs Temperature 102.2 F 12/26/20 22:03 Pulse Rate 101 H 12/26/20 22:03 Respiratory Rate 18 12/26/20 22:03 Blood Pressure 145/76 12/26/20 22:03 O2 Sat by Pulse Oximetry 98 12/26/20 22:03 Pain Scale Pain Intensity 5 - Physical Exam General Appearance: no apparent distress, alert Eye Exam: PERRL/EOMI, eyes nml inspection ENT Exam: normal ENT inspection, no apparent trauma, hearing grossly normal Neck Exam: normal inspection, non-tender, supple, full range of motion Respiratory Exam: normal breath sounds, lungs clear Cardiovascular/Chest Exam: normal heart sounds, regular rate/rhythm Gastrointestinal/Abdominal Exam: soft, non tender, no distention, no mass, no guarding Extremity Exam: non-tender, normal range of motion, normal inspection Neurologic Exam: alert, oriented x 3, cooperative, lodging manager 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 No tenderness.) SpO2 Interpretation: normal SpO2: 98 O2 Delivery: Room Air Ordered Tests: Active Orders 24 hr Category Date Time Status IV Insertion STAT Care 12/26/20 22:42 Active CHEST 1 VIEW (PORTABLE) Stat Exams 12/26/20 22:42 Taken BLOOD CULTURE Stat Lab 12/26/20 23:13 Received CBC W DIFF Stat Lab 12/26/20 22:52 Completed CMP Stat Lab 12/26/20 22:52 Completed Lactic Acid Stat Lab 12/26/20 23:30 Completed UA W/RFX UR CULTURE Stat Lab 12/26/20 22:52 Completed Medication Summary Generic Name Dose Route Start Last Admin Trade Name Cooper PRN Reason Stop Dose Admin Doxycycline Hyclate 100 mg/ 100 mls @ 100 mls/hr 12/27/20 10:00 Dextrose IV 01/26/21 09:59 Q12HT THANG Discontinued Medications Generic Name Dose Route Start Last Admin Trade Name Cooper PRN Reason Stop Dose Admin Acetaminophen 975 mg 12/26/20 22:42 Tylenol 325 Mg PO 12/26/20 22:43 STAT STA Acetaminophen Confirm 12/26/20 23:18 Tylenol 325 Mg Administered 12/26/20 23:19 Dose 975 mg .ROUTE .STK-MED ONE Doxycycline Hyclate Confirm 12/26/20 23:18 Vibramycin 100 Mg Administered 12/26/20 23:19 Dose 100 mg IV .STK-MED ONE Sodium Chloride 1,000 mls @ 999 mls/hr 12/26/20 22:42 Sodium Chloride 0.9% 1000 Ml IV 12/26/20 23:42 .Q1H1M STA Aztreonam 2 gm/ Sodium 100 mls @ 200 mls/hr 12/26/20 22:43 Chloride IV 12/26/20 23:12 STAT ONE Sodium Chloride Confirm 12/26/20 23:19 Sodium Chloride 0.9% 1000 Ml Administered 12/26/20 23:20 Dose 1,000 mls @ ud .ROUTE .STK-MED ONE Dextrose Confirm 12/26/20 23:22 D5w 100ml Mini Bag 100 Ml Administered 12/26/20 23:23 Dose 100 mls @ ud IV .STK-MED ONE Dextrose Confirm 12/26/20 23:25 D5w 100ml Mini Bag 100 Ml Administered 12/26/20 23:26 Dose 100 mls @ ud IV .STK-MED ONE Ondansetron HCl 4 mg 12/26/20 22:42 Zofran 4 Mg/2 Ml Vial IV 12/26/20 22:43 STAT STA Ondansetron HCl Confirm 12/26/20 23:18 Zofran 4 Mg/2 Ml Vial Administered 12/26/20 23:19 Dose 4 mg .ROUTE .STK-MED ONE Lab/Rad Data: Laboratory Result Diagrams 12/26/20 22:52 12/26/20 22:52 Laboratory Results 12/26/20 12/26/20 12/26/20 Range/Units 23:30 23:13 22:52 WBC (4.0-10.5) K/mm3 RBC (4.1-5.6) M/mm3 Hgb (12.5-18.0) gm/dl Hct (42-50) % MCV (78-100) fl MCH (26-32) pg MCHC (32-36) g/dl RDW (11.5-14.0) % Plt Count (150-450) K/mm3 MPV (7.5-11.0) fl Gran % (36.0-66.0) % Eos # (Auto) (0-0.5) Absolute Lymphs (auto) (1.0-4.6) Absolute Monos (auto) (0.0-1.3) Lymphocytes % (24.0-44.0) % Monocytes % (0.0-12.0) % Eosinophils % (0.00-5.0) % Basophils % (0.0-0.4) % Absolute Granulocytes (1.4-6.9) Basophils # (0-0.4) Sodium 136 L (137-145) mmol/L Potassium 4.0 (3.5-5.1) mmol/L Chloride 101 (98-107) mmol/L Carbon Dioxide 25 (22-30) mmol/L Anion Gap 14.3 (5-15) MEQ/L BUN 22 H (9-20) mg/dL Creatinine 0.90 (0.66-1.25) mg/dL Estimated GFR > 60.0 ML/MIN Glucose 230 H (74-106) mg/dL Lactic Acid 2.1 H (0.4-2.0) Calcium 9.1 (8.4-10.2) mg/dL Total Bilirubin 0.30 (0.2-1.3) mg/dL AST 26 (17-59) U/L ALT 22 (0-50) U/L Alkaline Phosphatase 95 (38-126) U/L Serum Total Protein 7.0 (6.3-8.2) g/dL Albumin 4.1 (3.5-5.0) g/dL Urine Color (YELLOW) Urine Appearance (CLEAR) Urine pH (5-6) Ur Specific [place] (1.005-1.025) Urine Protein (Negative) Urine Ketones (NEGATIVE) Urine Blood (0-5) Dre/ul Urine Nitrite (NEGATIVE) Urine Bilirubin (NEGATIVE) Urine Urobilinogen (0-1) mg/dL Ur Leukocyte Esterase (NEGATIVE) Urine WBC (Auto) (0-5) /HPF Urine RBC (Auto) (0-2) /HPF U Epithel Cells (Auto) (FEW) /HPF Urine Bacteria (Auto) (NEGATIVE) /HPF Urine Mucus (Auto) (NEGATIVE) /HPF Urine Sperm (Auto) (NEGATIVE) /HPF Urine Culture Reflexed (NO) Urine Glucose (NEGATIVE) mg/dL Group A Strep Antibody NOT DETECTED (NEGATIVE) 12/26/20 12/26/20 Range/Units 22:52 22:52 WBC 12.6 H (4.0-10.5) K/mm3 RBC 5.55 (4.1-5.6) M/mm3 Hgb 16.2 (12.5-18.0) gm/dl Hct 50.1 H (42-50) % MCV 90.3 (78-100) fl MCH 29.2 (26-32) pg MCHC 32.3 (32-36) g/dl RDW 14.5 H (11.5-14.0) % Plt Count 152 (150-450) K/mm3 MPV 10.6 (7.5-11.0) fl Gran % 85.0 H (36.0-66.0) % Eos # (Auto) 0.12 (0-0.5) Absolute Lymphs (auto) 0.97 L (1.0-4.6) Absolute Monos (auto) 0.73 (0.0-1.3) Lymphocytes % 7.7 L (24.0-44.0) % Monocytes % 5.8 (0.0-12.0) % Eosinophils % 1.0 (0.00-5.0) % Basophils % 0.5 (0.0-0.4) % Absolute Granulocytes 10.72 H (1.4-6.9) Basophils # 0.06 (0-0.4) Sodium (137-145) mmol/L Potassium (3.5-5.1) mmol/L Chloride (98-107) mmol/L Carbon Dioxide (22-30) mmol/L Anion Gap (5-15) MEQ/L BUN (9-20) mg/dL Creatinine (0.66-1.25) mg/dL Estimated GFR ML/MIN Glucose (74-106) mg/dL Lactic Acid (0.4-2.0) Calcium (8.4-10.2) mg/dL Total Bilirubin (0.2-1.3) mg/dL AST (17-59) U/L ALT (0-50) U/L Alkaline Phosphatase (38-126) U/L Serum Total Protein (6.3-8.2) g/dL Albumin (3.5-5.0) g/dL Urine Color YELLOW (YELLOW) Urine Appearance CLEAR (CLEAR) Urine pH 5.0 (5-6) Ur Specific [place] 1.029 (1.005-1.025) Urine Protein NEGATIVE (Negative) Urine Ketones TRACE (NEGATIVE) Urine Blood NEGATIVE (0-5) Dre/ul Urine Nitrite NEGATIVE (NEGATIVE) Urine Bilirubin NEGATIVE (NEGATIVE) Urine Urobilinogen NEGATIVE (0-1) mg/dL Ur Leukocyte Esterase NEGATIVE (NEGATIVE) Urine WBC (Auto) 0-2 (0-5) /HPF Urine RBC (Auto) 0-2 (0-2) /HPF U Epithel Cells (Auto) NONE (FEW) /HPF Urine Bacteria (Auto) RARE (NEGATIVE) /HPF Urine Mucus (Auto) SLIGHT (NEGATIVE) /HPF Urine Sperm (Auto) PRESENT (NEGATIVE) /HPF Urine Culture Reflexed NO (NO) Urine Glucose >=500 (NEGATIVE) mg/dL Group A Strep Antibody (NEGATIVE) - Progress Progress: improved, re-examined Progress Note: 12/26/20 23:48 55 years old diabetic is evaluated for fever after pulling out. Tick from right lateral lower chest wall. Has a fever of 102 on presentation, given Tylenol. Chest x-ray showed questionable pneumonia on the right side, given a dose of doxycycline and is acting. Tick titer would be obtained. Blood cultures are pending. Has a white count of 12, grossly unremarkable chemistries except for elevated glucose. No UTI. Discussed with Dr. Pearson and patient is being admitted for observation. Discussed with : Mikey Will see patient in: hospital (observation) Counseled pt/family regarding: lab results, diagnosis, rad results - Departure Departure Disposition: Home Clinical Impression: Fever Qualifiers: Fever type: unspecified Qualified Code(s): R50.9 - Fever, unspecified Pneumonia Qualifiers: Pneumonia type: due to unspecified organism Laterality: right Lung location: lower lobe of lung Qualified Code(s): J18.9 - Pneumonia, unspecified organism Tick bite Qualifiers: Front or back of thoracic wall: unspecified whether front or back Condition: Stable Critical Care Time: No Referrals: GERALDINE PEARSON MD [Primary Care Provider] -
[2020-12-27] MEDS ORDERED: MORPHINE SULFATE 4 MG INJ IV PRN (01:26)
[2020-12-27] MEDS ORDERED: TYLENOL 325 MG PO PRN (01:26)
[2020-12-27] MEDS ORDERED: HUMALOG SQ PRN (01:26)
[2020-12-27] MEDS ORDERED: Zofran 4 MG/2 ML VIAL IV PRN (01:26)
[2020-12-27] MEDS ORDERED: DUONEB 0.5-3 MG/3 ml Neb IH PRN (01:26)
[2020-12-27] MEDS: Sodium Chloride 0.9% 1000 ML 1,000 ML IV SCH ×3 (03:10→21:50)
[2020-12-27 05:37] LABS: BASOPHIL % 0.3 % (0.0-0.4); Basophil (Absolute #) 0.04 (0-0.4); Eosinophil % 0.3 % (0.00-5.0); Eosinophil (Absolute #) 0.04 (0-0.5); Hematocrit 48.2 % (42-50); Hemoglobin 15.3 gm/dl (12.5-18.0); Lymphocyte (Absolute #) 1.13 (1.0-4.6); Lymphocytes % 9.3 % (24.0-44.0); Mean Cell Volume 90.6 fl (78-100); Mean Corpuscular Hemoglobin 28.8 pg (26-32); Mean Corpuscular Hgb Concent. 31.7 g/dl (32-36); Mean Platelet Volume 10.1 fl (7.5-11.0); Monocytes % 6.6 % (0.0-12.0); Neutrophil % 83.5 % (36.0-66.0); Platelet Count 130 K/mm3 (150-450); Red Blood Count 5.32 M/mm3 (4.1-5.6); Red Cell Distribution Width 14.4 % (11.5-14.0); White Blood Count 12.1 K/mm3 (4.0-10.5)
[2020-12-27 06:24] LABS: ALBUMIN 3.7 g/dL (3.5-5.0); ALKALINE PHOSPHATASE 84 U/L (38-126); ANION GAP 11.5 MEQ/L (5-15); BLOOD UREA NITROGEN 17 mg/dL (9-20); CHLORIDE 104 mmol/L (98-107); Calcium 8.7 mg/dL (8.4-10.2); Carbon Dioxide 26 mmol/L (22-30); EST GLOMERULAR FILTRATION RATE > 60.0 ML/MIN; Glucose 159 mg/dL (74-106); Potassium 4.2 mmol/L (3.5-5.1); SGOT/AST 21 U/L (17-59); SGPT/ALT 19 U/L (0-50); SODIUM 137 mmol/L (137-145); Total Protein 6.5 g/dL (6.3-8.2)
[2020-12-27] MEDS ORDERED: D5w 100ML Mini Bag 100 ML 100 ML IV ONE (06:32)
[2020-12-27] MEDS ORDERED: AZACTAM 1 GM ONE (06:32)
[2020-12-27] MEDS: AZACTAM 1 GM*** 1 GM in Sodium Chloride 100ML MINI-BAG PLUS 100 ML IV SCH ×3 (06:46→21:50)
--- NOTE | 2020-12-27 08:45 | PCM.HP ---
History of Present Illness - Chief Complaint Chief Complaint: Fever History of Present Illness: is a 55 year old male who presented to the ER with fever and myalgias, he had a tick removed from his back 1 week ago and has developed symptoms, his fever has been high and unresponsive to tylenol, he aches all over and complains of headache, no neck pain or rigidity of his neck. he has no redness but has had multiple episodes of cellulitis in the past, no rash, no confusion, mild cough, no vomiting or diarrhea, no abd pain. - Review of Systems Constitutional: Fever, Chills, Malaise Eyes: No Symptoms Ears, Nose, & Throat: No Symptoms Respiratory: Cough, No Short Of Breath Cardiac: No Chest Pain, No Edema, No Syncope Abdominal/Gastrointestinal: No Abdominal Pain, No Nausea, No Vomiting, No Diarrhea Skin: No Symptoms Neurological: Headache, No Dizziness, No Focal Weakness All Other Systems: Reviewed and Negative Medications & Allergies Home Medications: Home Medication List Aspirin 81 gm Chew [Baby Aspirin 81 mg Chew] 81 mg PO QHS 11/06/15 [History Confirmed 09/28/20] Metformin HCl 500 mg [Glucophage 500 MG] 1,000 mg PO BID 11/06/15 [History Confirmed 12/27/20] Escitalopram Oxalate [Lexapro] 20 mg PO DAILY 11/10/15 [History Confirmed 12/27/20] Glucosam/Chond/Collagen/Hyalur [Glucosamine Chondroitin Cap] 1,000 mg PO BID 02/10/16 [History Confirmed 12/27/20] Lisinopril/Hydrochlorothiazide [Lisinopril-Hctz 20-12.5 mg Tab] 2 tab PO DAILY 02/10/16 [History Confirmed 12/27/20] Atorvastatin Calcium 40 mg PO QHS 03/26/17 [History Confirmed 12/27/20] Isosorbide Mononitrate [Isosorbide Mononitrate ER] 60 mg PO DAILY 03/26/17 [History Confirmed 12/27/20] Metoprolol Succinate 50 mg PO DAILY 03/26/17 [History Confirmed 12/27/20] Nitroglycerin 0.4 mg SL UD PRN 03/26/17 [History Confirmed 12/27/20] Ropinirole HCl 0.5 mg PO QHS 03/26/17 [History Confirmed 12/27/20] Albuterol Sulfate [Proair Hfa] 8.5 gm IH Q6HPRN PRN 06/05/19 [History Confirmed 09/28/20] Empagliflozin [Jardiance] 25 mg PO QAM 06/05/19 [History Confirmed 12/27/20] Apixaban [Eliquis 2.5 mg Tablet] 5 mg PO BID tablet 06/08/19 [Rx Confirmed 09/28/20] Cholecalciferol (Vitamin D3) [Vitamin D] 1.25 mg PO WEEKLY 09/28/20 [History Confirmed 12/27/20] Glimepiride 4 mg [Amaryl 4 mg] 4 mg PO DAILY 09/28/20 [History Confirmed 12/27/20] Insulin Glargine,Hum.rec.anlog [Lantus Solostar] 50 units SQ BID 12/26/20 [History Confirmed 12/27/20] Amlodipine Besylate 10 mg PO DAILY 12/27/20 [History Confirmed 12/27/20] Allergies/Adverse Reactions: Allergies Allergy/AdvReac Type Severity Reaction Status Date / Time Penicillins Allergy Unknown Verified 12/27/20 02:14 - Past Medical History Past Medical History: Yes Neurological History: No Pertinent History ENT History: No Pertinent History Cardiac History: Angina, Coronary Artery Disease, High Cholesterol, Hypertension Respiratory History: Sleep Apnea Endocrine Medical History: Diabetes Type II Musculoskelatal History: Other GI Medical History: No Pertinent History History: No Pertinent History Pyscho-Social History: Anxiety Male Reproductive Disorders: No Pertinent History Comment: chronic joint pain, restless leg syndrome, cellulitis BLE, cardiac artery blockage- no stent placed - Past Surgical History Past Surgical History: Yes Neuro Surgical History: No Pertinent History Cardiac History: Cardiac Catheterization Respiratory Surgery: No Pertinent History GI Surgical History: No Pertinent History Genitourinary Surgical Hx: No Pertinent History Musculskeletal Surgical Hx: No Pertinent History Male Surgical History: No Pertinent History Other Surgical History: heart catheterization in 2016 in [place] revealed 70% blockage - not stented, left back absess removed - Social History Smoking Status: Never smoker Exposure to second hand smoke: No Alcohol: Occasionally Drug Use: none - Physical Exam Vital Signs: Vital Signs - 24 hr Temp Pulse Resp BP Pulse Ox 12/27/20 08:19 98.9 F 12/27/20 08:00 100.0 F 88 20 105/51 94 L 12/27/20 04:00 99.8 F 93 H 20 147/67 95 12/27/20 02:17 99.8 F 93 H 20 147/67 95 12/26/20 23:50 98 12/26/20 23:00 96 H 18 134/55 96 12/26/20 22:03 102.2 F 101 H 18 145/76 98 General Appearance: no apparent distress, obese Neurologic Exam: alert, oriented x 3 Neck Exam: normal inspection, non-tender, supple, full range of motion Respiratory Exam: normal breath sounds, lungs clear, No respiratory distress Cardiovascular Exam: regular rate/rhythm, normal heart sounds, normal peripheral pulses Gastrointestinal/Abdomen Exam: soft, normal bowel sounds, No tenderness, No mass Skin Exam: normal color, warm, dry Results - Labs Lab/Micro Results: Lab Results-Last 24 Hours 12/26/20 12/26/20 12/26/20 Range/Units 22:52 22:52 22:52 WBC 12.6 H (4.0-10.5) K/mm3 RBC 5.55 (4.1-5.6) M/mm3 Hgb 16.2 (12.5-18.0) gm/dl Hct 50.1 H (42-50) % MCV 90.3 (78-100) fl MCH 29.2 (26-32) pg MCHC 32.3 (32-36) g/dl RDW 14.5 H (11.5-14.0) % Plt Count 152 (150-450) K/mm3 MPV 10.6 (7.5-11.0) fl Gran % 85.0 H (36.0-66.0) % Eos # (Auto) 0.12 (0-0.5) Absolute Lymphs (auto) 0.97 L (1.0-4.6) Absolute Monos (auto) 0.73 (0.0-1.3) Lymphocytes % 7.7 L (24.0-44.0) % Monocytes % 5.8 (0.0-12.0) % Eosinophils % 1.0 (0.00-5.0) % Basophils % 0.5 (0.0-0.4) % Absolute Granulocytes 10.72 H (1.4-6.9) Basophils # 0.06 (0-0.4) Sodium 136 L (137-145) mmol/L Potassium 4.0 (3.5-5.1) mmol/L Chloride 101 (98-107) mmol/L Carbon Dioxide 25 (22-30) mmol/L Anion Gap 14.3 (5-15) MEQ/L BUN 22 H (9-20) mg/dL Creatinine 0.90 (0.66-1.25) mg/dL Estimated GFR > 60.0 ML/MIN Glucose 230 H (74-106) mg/dL POC Glucometer (74 to 106) mg/dL Lactic Acid (0.4-2.0) Calcium 9.1 (8.4-10.2) mg/dL Total Bilirubin 0.30 (0.2-1.3) mg/dL AST 26 (17-59) U/L ALT 22 (0-50) U/L Alkaline Phosphatase 95 (38-126) U/L Serum Total Protein 7.0 (6.3-8.2) g/dL Albumin 4.1 (3.5-5.0) g/dL Urine Color YELLOW (YELLOW) Urine Appearance CLEAR (CLEAR) Urine pH 5.0 (5-6) Ur Specific [place] 1.029 (1.005-1.025) Urine Protein NEGATIVE (Negative) Urine Ketones TRACE (NEGATIVE) Urine Blood NEGATIVE (0-5) Dre/ul Urine Nitrite NEGATIVE (NEGATIVE) Urine Bilirubin NEGATIVE (NEGATIVE) Urine Urobilinogen NEGATIVE (0-1) mg/dL Ur Leukocyte Esterase NEGATIVE (NEGATIVE) Urine WBC (Auto) 0-2 (0-5) /HPF Urine RBC (Auto) 0-2 (0-2) /HPF U Epithel Cells (Auto) NONE (FEW) /HPF Urine Bacteria (Auto) RARE (NEGATIVE) /HPF Urine Mucus (Auto) SLIGHT (NEGATIVE) /HPF Urine Sperm (Auto) PRESENT (NEGATIVE) /HPF Urine Culture Reflexed NO (NO) Urine Glucose >=500 (NEGATIVE) mg/dL SARS-CoV-2 (PCR) (NEGATIVE) Group A Strep Antibody (NEGATIVE) 12/26/20 12/26/20 12/26/20 Range/Units 23:13 23:30 23:43 WBC (4.0-10.5) K/mm3 RBC (4.1-5.6) M/mm3 Hgb (12.5-18.0) gm/dl Hct (42-50) % MCV (78-100) fl MCH (26-32) pg MCHC (32-36) g/dl RDW (11.5-14.0) % Plt Count (150-450) K/mm3 MPV (7.5-11.0) fl Gran % (36.0-66.0) % Eos # (Auto) (0-0.5) Absolute Lymphs (auto) (1.0-4.6) Absolute Monos (auto) (0.0-1.3) Lymphocytes % (24.0-44.0) % Monocytes % (0.0-12.0) % Eosinophils % (0.00-5.0) % Basophils % (0.0-0.4) % Absolute Granulocytes (1.4-6.9) Basophils # (0-0.4) Sodium (137-145) mmol/L Potassium (3.5-5.1) mmol/L Chloride (98-107) mmol/L Carbon Dioxide (22-30) mmol/L Anion Gap (5-15) MEQ/L BUN (9-20) mg/dL Creatinine (0.66-1.25) mg/dL Estimated GFR ML/MIN Glucose (74-106) mg/dL POC Glucometer (74 to 106) mg/dL Lactic Acid 2.1 H (0.4-2.0) Calcium (8.4-10.2) mg/dL Total Bilirubin (0.2-1.3) mg/dL AST (17-59) U/L ALT (0-50) U/L Alkaline Phosphatase (38-126) U/L Serum Total Protein (6.3-8.2) g/dL Albumin (3.5-5.0) g/dL Urine Color (YELLOW) Urine Appearance (CLEAR) Urine pH (5-6) Ur Specific [place] (1.005-1.025) Urine Protein (Negative) Urine Ketones (NEGATIVE) Urine Blood (0-5) Dre/ul Urine Nitrite (NEGATIVE) Urine Bilirubin (NEGATIVE) Urine Urobilinogen (0-1) mg/dL Ur Leukocyte Esterase (NEGATIVE) Urine WBC (Auto) (0-5) /HPF Urine RBC (Auto) (0-2) /HPF U Epithel Cells (Auto) (FEW) /HPF Urine Bacteria (Auto) (NEGATIVE) /HPF Urine Mucus (Auto) (NEGATIVE) /HPF Urine Sperm (Auto) (NEGATIVE) /HPF Urine Culture Reflexed (NO) Urine Glucose (NEGATIVE) mg/dL SARS-CoV-2 (PCR) NEGATIVE (NEGATIVE) Group A Strep Antibody NOT DETECTED (NEGATIVE) 12/27/20 12/27/20 12/27/20 Range/Units 01:38 04:47 04:47 WBC 12.1 H (4.0-10.5) K/mm3 RBC 5.32 (4.1-5.6) M/mm3 Hgb 15.3 (12.5-18.0) gm/dl Hct 48.2 (42-50) % MCV 90.6 (78-100) fl MCH 28.8 (26-32) pg MCHC 31.7 L (32-36) g/dl RDW 14.4 H (11.5-14.0) % Plt Count 130 L (150-450) K/mm3 MPV 10.1 (7.5-11.0) fl Gran % 83.5 H (36.0-66.0) % Eos # (Auto) 0.04 (0-0.5) Absolute Lymphs (auto) 1.13 (1.0-4.6) Absolute Monos (auto) 0.80 (0.0-1.3) Lymphocytes % 9.3 L (24.0-44.0) % Monocytes % 6.6 (0.0-12.0) % Eosinophils % 0.3 (0.00-5.0) % Basophils % 0.3 (0.0-0.4) % Absolute Granulocytes 10.10 H (1.4-6.9) Basophils # 0.04 (0-0.4) Sodium 137 (137-145) mmol/L Potassium 4.2 (3.5-5.1) mmol/L Chloride 104 (98-107) mmol/L Carbon Dioxide 26 (22-30) mmol/L Anion Gap 11.5 (5-15) MEQ/L BUN 17 (9-20) mg/dL Creatinine 0.90 (0.66-1.25) mg/dL Estimated GFR > 60.0 ML/MIN Glucose 159 H (74-106) mg/dL POC Glucometer (74 to 106) mg/dL Lactic Acid 1.3 (0.4-2.0) Calcium 8.7 (8.4-10.2) mg/dL Total Bilirubin 0.40 (0.2-1.3) mg/dL AST 21 (17-59) U/L ALT 19 (0-50) U/L Alkaline Phosphatase 84 (38-126) U/L Serum Total Protein 6.5 (6.3-8.2) g/dL Albumin 3.7 (3.5-5.0) g/dL Urine Color (YELLOW) Urine Appearance (CLEAR) Urine pH (5-6) Ur Specific [place] (1.005-1.025) Urine Protein (Negative) Urine Ketones (NEGATIVE) Urine Blood (0-5) Dre/ul Urine Nitrite (NEGATIVE) Urine Bilirubin (NEGATIVE) Urine Urobilinogen (0-1) mg/dL Ur Leukocyte Esterase (NEGATIVE) Urine WBC (Auto) (0-5) /HPF Urine RBC (Auto) (0-2) /HPF U Epithel Cells (Auto) (FEW) /HPF Urine Bacteria (Auto) (NEGATIVE) /HPF Urine Mucus (Auto) (NEGATIVE) /HPF Urine Sperm (Auto) (NEGATIVE) /HPF Urine Culture Reflexed (NO) Urine Glucose (NEGATIVE) mg/dL SARS-CoV-2 (PCR) (NEGATIVE) Group A Strep Antibody (NEGATIVE) 12/27/20 Range/Units 07:34 WBC (4.0-10.5) K/mm3 RBC (4.1-5.6) M/mm3 Hgb (12.5-18.0) gm/dl Hct (42-50) % MCV (78-100) fl MCH (26-32) pg MCHC (32-36) g/dl RDW (11.5-14.0) % Plt Count (150-450) K/mm3 MPV (7.5-11.0) fl Gran % (36.0-66.0) % Eos # (Auto) (0-0.5) Absolute Lymphs (auto) (1.0-4.6) Absolute Monos (auto) (0.0-1.3) Lymphocytes % (24.0-44.0) % Monocytes % (0.0-12.0) % Eosinophils % (0.00-5.0) % Basophils % (0.0-0.4) % Absolute Granulocytes (1.4-6.9) Basophils # (0-0.4) Sodium (137-145) mmol/L Potassium (3.5-5.1) mmol/L Chloride (98-107) mmol/L Carbon Dioxide (22-30) mmol/L Anion Gap (5-15) MEQ/L BUN (9-20) mg/dL Creatinine (0.66-1.25) mg/dL Estimated GFR ML/MIN Glucose (74-106) mg/dL POC Glucometer 195 H (74 to 106) mg/dL Lactic Acid (0.4-2.0) Calcium (8.4-10.2) mg/dL Total Bilirubin (0.2-1.3) mg/dL AST (17-59) U/L ALT (0-50) U/L Alkaline Phosphatase (38-126) U/L Serum Total Protein (6.3-8.2) g/dL Albumin (3.5-5.0) g/dL Urine Color (YELLOW) Urine Appearance (CLEAR) Urine pH (5-6) Ur Specific [place] (1.005-1.025) Urine Protein (Negative) Urine Ketones (NEGATIVE) Urine Blood (0-5) Dre/ul Urine Nitrite (NEGATIVE) Urine Bilirubin (NEGATIVE) Urine Urobilinogen (0-1) mg/dL Ur Leukocyte Esterase (NEGATIVE) Urine WBC (Auto) (0-5) /HPF Urine RBC (Auto) (0-2) /HPF U Epithel Cells (Auto) (FEW) /HPF Urine Bacteria (Auto) (NEGATIVE) /HPF Urine Mucus (Auto) (NEGATIVE) /HPF Urine Sperm (Auto) (NEGATIVE) /HPF Urine Culture Reflexed (NO) Urine Glucose (NEGATIVE) mg/dL SARS-CoV-2 (PCR) (NEGATIVE) Group A Strep Antibody (NEGATIVE) Accuchecks Date 12/27/20 - Radiology Impressions Radiology Exams & Impressions: Radiology Procedures Category Date Time Status CHEST 1 VIEW (PORTABLE) Stat Exams 12/26/20 22:42 Taken - Other Procedures and Tests Respiratory Therapy 12/27/20 02:35 RT Screen per Nursing Assess ONCE Assessment/Plan (1) Fever Current Visit: Yes Status: Acute Qualifiers: Fever type: unspecified Qualified Code(s): R50.9 - Fever, unspecified Code(s): R50.9 - FEVER, UNSPECIFIED (2) Pneumonia Current Visit: Yes Status: Acute Qualifiers: Pneumonia type: due to unspecified organism Laterality: right Lung location: lower lobe of lung Qualified Code(s): J18.9 - Pneumonia, unspecified organism Assessment & Plan: on doxy and azactam, formal xray read pending Code(s): J18.9 - PNEUMONIA, UNSPECIFIED ORGANISM (3) Tick bite Current Visit: Yes Status: Acute Qualifiers: Front or back of thoracic wall: unspecified whether front or back Assessment & Plan: tick panel pending from ER, blood cultures are pending Code(s): W57.XXXA - BIT/STUNG BY NONVENOM INSECT & OTH NONVENOM ARTHROPODS, INIT (4) Type 2 diabetes mellitus Current Visit: Yes Status: Acute
[2020-12-27] MEDS ORDERED: MOTRIN 600 MG PO PRN (08:47)
[2020-12-27] MEDS: NORCO 5/325 MG PO PRN ×2 (08:58→17:00)
[2020-12-27] MEDS ORDERED: Lexapro 10 MG PO SCH (10:00)
[2020-12-27] MEDS ORDERED: NORVASC 5 MG PO SCH (10:00)
[2020-12-27] MEDS ORDERED: NON-FORMULARY ITEM (Escitalopram Oxalate [Lexapro] 20 MG) PO SCH (10:00)
[2020-12-27] MEDS ORDERED: HYDROCHLOROTHIAZIDE PO SCH (10:00)
[2020-12-27] MEDS ORDERED: INSULIN GLARGINE HUM REC ANLOG 50 UNIT SQ SCH (10:00)
[2020-12-27] MEDS ORDERED: LISINOPRIL PO SCH (10:00)
[2020-12-27] MEDS ORDERED: Zestril 20 MG PO SCH (10:00)
[2020-12-27] MEDS ORDERED: Imdur 60MG PO SCH (10:00)
[2020-12-27] MEDS ORDERED: [UNRECOGNIZED DRUG - OTHER] PO SCH (10:00)
[2020-12-27] MEDS ORDERED: hydroDIURIL 25 MG PO SCH (10:00)
[2020-12-27] MEDS ORDERED: Toprol Xl 50 MG PO SCH (10:00)
[2020-12-27] MEDS ORDERED: NON-FORMULARY ITEM (Amlodipine Besylate [Amlodipine Besylate] 10 MG) PO SCH (10:00)
[2020-12-27] MEDS ORDERED: VIBRAMYCIN 100 MG*** 100 MG in Dextrose 5%/Water IV Soln. 100ML PLUS BAG 100 ML IV SCH (10:00)
[2020-12-27] MEDS ORDERED: PROTONIX 40 MG IV IV SCH (10:00)
[2020-12-27] MEDS: ELIQUIS 2.5 MG TABLET PO SCH ×2 (10:27→21:49)
[2020-12-27] MEDS: VIBRAMYCIN 100 MG*** 100 MG in Dextrose 5%/Water IV Soln. 100ML PLUS BAG 100 ML IV SCH ×2 (10:28→21:55)
[2020-12-27] MEDS: Lantus Insulin SQ SCH ×2 (10:29→21:49)
--- NOTE | 2020-12-27 11:23 | XRAY ---
Exam: AP upright portable chest film from 12/26/2020. Comparison: AP 80 semiupright portable chest film from 03/25/2017. Indication: 55-year-old male with fever. Findings: The patient is large. The image was obtained in a mildly lordotic projection. The heart size and contour are normal. The patient is rotated slightly toward the left. The reji and mediastinal structures otherwise appear unremarkable. The lung khan are adequately inflated. No air space infiltrates, vascular congestion, pneumothorax, or pleural fluid is seen. Slight convexity of the mid thoracic spine toward the right is seen. Mild lateral osteophytes are seen within the lower thoracic spine. Impression: 1. No air space infiltrates to suggest pneumonia or other acute cardiopulmonary disease is seen, no significant change from 03/25/2017.
[2020-12-27] MEDS ORDERED: BABY ASPIRIN 81 MG CHEW PO SCH (22:00)
[2020-12-27] MEDS ORDERED: LIPITOR 40MG PO SCH (22:00)
[2020-12-27] MEDS ORDERED: Requip 0.5 MG PO SCH (22:00)
[2020-12-27] MEDS ORDERED: ECOTRIN 81 MG PO SCH (22:00)
[2020-12-28 05:19] LABS: Absolute Neutrophil Ct (ANC) 5.53 (1.4-6.9); BASOPHIL % 0.5 % (0.0-0.4); Basophil (Absolute #) 0.04 (0-0.4); Eosinophil % 1.9 % (0.00-5.0); Eosinophil (Absolute #) 0.17 (0-0.5); Hematocrit 46.8 % (42-50); Hemoglobin 15.1 gm/dl (12.5-18.0); Lymphocyte (Absolute #) 2.15 (1.0-4.6); Lymphocytes % 24.3 % (24.0-44.0); Mean Cell Volume 90.9 fl (78-100); Mean Corpuscular Hemoglobin 29.3 pg (26-32); Mean Corpuscular Hgb Concent. 32.3 g/dl (32-36); Mean Platelet Volume 10.1 fl (7.5-11.0); Monocyte (Absolute #) 0.95 (0.0-1.3); Monocytes % 10.7 % (0.0-12.0); Neutrophil % 62.6 % (36.0-66.0); Platelet Count 124 K/mm3 (150-450); Red Blood Count 5.15 M/mm3 (4.1-5.6); Red Cell Distribution Width 14.7 % (11.5-14.0); White Blood Count 8.8 K/mm3 (4.0-10.5)
[2020-12-28] MEDS: Sodium Chloride 0.9% 1000 ML 1,000 ML IV SCH (06:04)
[2020-12-28] MEDS: AZACTAM 1 GM*** 1 GM in Sodium Chloride 100ML MINI-BAG PLUS 100 ML IV SCH (06:05)
[2020-12-28 06:27] LABS: ALBUMIN 3.6 g/dL (3.5-5.0); ALKALINE PHOSPHATASE 77 U/L (38-126); ANION GAP 12.1 MEQ/L (5-15); BLOOD UREA NITROGEN 15 mg/dL (9-20); CHLORIDE 103 mmol/L (98-107); Calcium 8.6 mg/dL (8.4-10.2); Carbon Dioxide 26 mmol/L (22-30); Creatinine 1 0.81 mg/dL (0.66-1.25); EST GLOMERULAR FILTRATION RATE > 60.0 ML/MIN; Glucose 168 mg/dL (74-106); SGOT/AST 27 U/L (17-59); SGPT/ALT 22 U/L (0-50); SODIUM 137 mmol/L (137-145); Total Protein 6.5 g/dL (6.3-8.2)
[2020-12-28 07:37] VITALS: BP 141/65; PULSE 75; O2SAT 96
--- NOTE | 2020-12-28 09:05 | PCM.DS ---
Discharge Summary Date of Admission: 12/27/20 01:18 Admitting Physician: GERALDINE PEARSON Primary Care Provider: GERALDINE PEARSON Allergies Allergies Penicillins Allergy (Unknown, Verified 12/27/20 02:14) Hospital Summary - Hospital Course Hospital Course: Pt is 55 yo diabetic pt of Dr. Pearson' with recurrent cellulitis who was admitted through ER wtih fever and myalgias. He did have a recent tickbite. no signs of cellulitis. He was started on po doxycycline and IV aztreonam for possible tickborn illness or pneumonia. He does have a history of possible necrotizing fasciitis - he was transferred (at a previous ER visit) by air to [facility] with an abdominal abscess and had immediate surgery. The over read of his cxr this visit was negative. He felt poorly until 4 pm yesterday, then it was "like a switch" and he has felt "fine" ever since. Still feeling very well this morning. Afebrile for > 24 hours. He is tolerating po well. Will be discharged to home on po doxycycline. We spoke at length about reasons to return to the ER and he voiced understanding. - Vitals & Intake/Output Vital Signs: Vital Signs Temperature 98.1 F 12/28/20 07:35 Pulse Rate 75 12/28/20 07:35 Respiratory Rate 22 12/28/20 07:35 Blood Pressure 141/65 12/28/20 07:35 O2 Sat by Pulse Oximetry 96 12/28/20 07:35 Intake & Output: Intake & Output 12/25/20 12/26/20 12/27/20 12/28/20 11:59 11:59 11:59 11:59 Intake Total 355 2296 Balance 355 2296 Weight 175.6 kg 176.2 kg - Lab Result Diagrams: 12/28/20 04:50 12/28/20 04:50 Lab Results-Last 24 Hrs: Lab Results-Last 24 Hours 12/27/20 12/27/20 12/27/20 Range/Units 04:47 11:09 15:54 WBC (4.0-10.5) K/mm3 RBC (4.1-5.6) M/mm3 Hgb (12.5-18.0) gm/dl Hct (42-50) % MCV (78-100) fl MCH (26-32) pg MCHC (32-36) g/dl RDW (11.5-14.0) % Plt Count (150-450) K/mm3 MPV (7.5-11.0) fl Gran % (36.0-66.0) % Eos # (Auto) (0-0.5) Absolute Lymphs (auto) (1.0-4.6) Absolute Monos (auto) (0.0-1.3) Lymphocytes % (24.0-44.0) % Monocytes % (0.0-12.0) % Eosinophils % (0.00-5.0) % Basophils % (0.0-0.4) % Absolute Granulocytes (1.4-6.9) Basophils # (0-0.4) Sodium (137-145) mmol/L Potassium (3.5-5.1) mmol/L Chloride (98-107) mmol/L Carbon Dioxide (22-30) mmol/L Anion Gap (5-15) MEQ/L BUN (9-20) mg/dL Creatinine (0.66-1.25) mg/dL Estimated GFR ML/MIN Glucose (74-106) mg/dL POC Glucometer 164 H 195 H (74 to 106) mg/dL Hemoglobin A1c 7.89 H (4.5-6.0) % Calcium (8.4-10.2) mg/dL Total Bilirubin (0.2-1.3) mg/dL AST (17-59) U/L ALT (0-50) U/L Alkaline Phosphatase (38-126) U/L Serum Total Protein (6.3-8.2) g/dL Albumin (3.5-5.0) g/dL 12/27/20 12/28/20 12/28/20 Range/Units 20:44 04:50 04:50 WBC 8.8 (4.0-10.5) K/mm3 RBC 5.15 (4.1-5.6) M/mm3 Hgb 15.1 (12.5-18.0) gm/dl Hct 46.8 (42-50) % MCV 90.9 (78-100) fl MCH 29.3 (26-32) pg MCHC 32.3 (32-36) g/dl RDW 14.7 H (11.5-14.0) % Plt Count 124 L (150-450) K/mm3 MPV 10.1 (7.5-11.0) fl Gran % 62.6 (36.0-66.0) % Eos # (Auto) 0.17 (0-0.5) Absolute Lymphs (auto) 2.15 (1.0-4.6) Absolute Monos (auto) 0.95 (0.0-1.3) Lymphocytes % 24.3 (24.0-44.0) % Monocytes % 10.7 (0.0-12.0) % Eosinophils % 1.9 (0.00-5.0) % Basophils % 0.5 (0.0-0.4) % Absolute Granulocytes 5.53 (1.4-6.9) Basophils # 0.04 (0-0.4) Sodium 137 (137-145) mmol/L Potassium 4.0 (3.5-5.1) mmol/L Chloride 103 (98-107) mmol/L Carbon Dioxide 26 (22-30) mmol/L Anion Gap 12.1 (5-15) MEQ/L BUN 15 (9-20) mg/dL Creatinine 0.81 (0.66-1.25) mg/dL Estimated GFR > 60.0 ML/MIN Glucose 168 H (74-106) mg/dL POC Glucometer 224 H (74 to 106) mg/dL Hemoglobin A1c (4.5-6.0) % Calcium 8.6 (8.4-10.2) mg/dL Total Bilirubin 0.40 (0.2-1.3) mg/dL AST 27 (17-59) U/L ALT 22 (0-50) U/L Alkaline Phosphatase 77 (38-126) U/L Serum Total Protein 6.5 (6.3-8.2) g/dL Albumin 3.6 (3.5-5.0) g/dL 12/28/20 Range/Units 06:59 WBC (4.0-10.5) K/mm3 RBC (4.1-5.6) M/mm3 Hgb (12.5-18.0) gm/dl Hct (42-50) % MCV (78-100) fl MCH (26-32) pg MCHC (32-36) g/dl RDW (11.5-14.0) % Plt Count (150-450) K/mm3 MPV (7.5-11.0) fl Gran % (36.0-66.0) % Eos # (Auto) (0-0.5) Absolute Lymphs (auto) (1.0-4.6) Absolute Monos (auto) (0.0-1.3) Lymphocytes % (24.0-44.0) % Monocytes % (0.0-12.0) % Eosinophils % (0.00-5.0) % Basophils % (0.0-0.4) % Absolute Granulocytes (1.4-6.9) Basophils # (0-0.4) Sodium (137-145) mmol/L Potassium (3.5-5.1) mmol/L Chloride (98-107) mmol/L Carbon Dioxide (22-30) mmol/L Anion Gap (5-15) MEQ/L BUN (9-20) mg/dL Creatinine (0.66-1.25) mg/dL Estimated GFR ML/MIN Glucose (74-106) mg/dL POC Glucometer 149 H (74 to 106) mg/dL Hemoglobin A1c (4.5-6.0) % Calcium (8.4-10.2) mg/dL Total Bilirubin (0.2-1.3) mg/dL AST (17-59) U/L ALT (0-50) U/L Alkaline Phosphatase (38-126) U/L Serum Total Protein (6.3-8.2) g/dL Albumin (3.5-5.0) g/dL Micro Results-Entire Visit: Microbiology 12/26/20 23:13 Blood Culture - Preliminary Blood NO GROWTH TO DATE 12/26/20 22:52 Blood Culture - Preliminary Blood NO GROWTH TO DATE Accuchecks Date 12/27/20 Date 12/27/20 Date 12/27/20 Time 20:44 - Radiology Exams Ordered Rad Exams-Entire Visit: Radiology Procedures Category Date Time Status CHEST 1 VIEW (PORTABLE) Stat Exams 12/26/20 22:42 Completed - Procedures and Test Procedures and Tests throughout Hospitalization: Therapy Orders & Screens 12/27/20 02:35 RT Screen per Nursing Assess ONCE Comment: Protocol Order Physician Instructions: Greater than 3 points order RT Admission Screen Reason For Exam: Triggered on Admission Diagnosis: Fever Diagnosis: Fever Pneumonia: Yes Home O2: No Asthma: No CHF: No Home CPAP/BIPAP: Yes Home Nebs/MDI: No Total Points: 8 12/27/20 21:00 BiPap/CPAP ROUTINE Comment: HOME UNIT AT BEDSIDE PER HOME SETTINGS Diagnosis: Fever Discharge Exam General Appearance: no apparent distress, alert, obese Neurologic Exam: oriented x 3, cooperative, normal mood/affect Eye Exam: eyes nml inspection Ears, Nose, Throat Exam: moist mucous membranes Neck Exam: normal inspection Respiratory Exam: normal breath sounds, lungs clear, No crackles/rales, No rhonchi, No wheezing Cardiovascular Exam: regular rate/rhythm, normal heart sounds, No murmur Gastrointestinal/Abdomen Exam: soft, normal bowel sounds, other (scar R lower quad, linear, well healed), No tenderness, No mass, No guarding, No rebound Back Exam: normal inspection, No rash Extremity Exam: swelling (trace pretibial edema bilat, L>R) Skin Exam: normal color, warm, dry, other (L proximal lower leg, anteriorly, with approx 1x1.5cm annular lesion, mild scab, no erythema, pt says was poked by a tree when mowing a week ago.), No rash Final Diagnosis/Problem List - Final Discharge Diagnosis/Problem (1) Fever Current Visit: Yes Status: Resolved Assessment & Plan: Will continue to treat with doxycycline, to finish 14d course. Will f/u with Dr. Pearson within that time. Discussed that he is also on an IV antibiotic here, which could also be providing benefit, and if he has ANY recurrent symptoms or feels worse, he needs to return right away. Code(s): R50.9 - FEVER, UNSPECIFIED (2) Tick bite Current Visit: Yes Status: Acute Assessment & Plan: lyme workup pending. Code(s): W57.XXXA - BIT/STUNG BY NONVENOM INSECT & OTH NONVENOM ARTHROPODS, INIT (3) Type 2 diabetes mellitus Current Visit: Yes Status: Chronic - Discharge Disposition: Home, Self-Care Condition: Good Prescriptions: New Lactobacillus Acidophilus [Acidophilus Lactobacilli] 1 each PO TID #36 capsule Doxycycline Hyclate 100 mg [Vibramycin 100 MG] 100 mg PO BID #24 tab Continue Metformin HCl 500 mg [Glucophage 500 MG] 1,000 mg PO BID Aspirin 81 gm Chew [Baby Aspirin 81 mg Chew] 81 mg PO QHS Escitalopram Oxalate [Lexapro] 20 mg PO DAILY Lisinopril/Hydrochlorothiazide [Lisinopril-Hctz 20-12.5 mg Tab] 2 tab PO DAILY Glucosam/Chond/Collagen/Hyalur [Glucosamine Chondroitin Cap] 1,000 mg PO BID Atorvastatin Calcium 40 mg PO QHS Metoprolol Succinate 50 mg PO DAILY Isosorbide Mononitrate [Isosorbide Mononitrate ER] 60 mg PO DAILY Nitroglycerin 0.4 mg SL UD PRN PRN Reason: Chest Pain Ropinirole HCl 0.5 mg PO QHS Empagliflozin [Jardiance] 25 mg PO QAM Albuterol Sulfate [Proair Hfa] 8.5 gm IH Q6HPRN PRN PRN Reason: dyspnea Apixaban [Eliquis 2.5 mg Tablet] 5 mg PO BID tablet Glimepiride 4 mg [Amaryl 4 mg] 4 mg PO DAILY Cholecalciferol (Vitamin D3) [Vitamin D] 1.25 mg PO WEEKLY Insulin Glargine,Hum.rec.anlog [Lantus Solostar] 50 units SQ BID Amlodipine Besylate 10 mg PO DAILY Follow up with: GERALDINE PEARSON MD [Primary Care Provider] -
== END 2020-12-28 10:10 | disposition home or self-care (01) ==
LOC: ED 21:02 → MED SURG 12-27 01:18
PROVIDERS: ADMIT Family Medicine; ATTEND Family Medicine
DX: R50.9 Fever, unspecified (principal); S20.361A Insect bite (nonvenomous) of right front wall of thorax, initial encounter; E11.9 Type 2 diabetes mellitus without complications; Z79.899 Other long term (current) drug therapy; Z79.01 Long term (current) use of anticoagulants; Z20.828 Contact with and (suspected) exposure to other viral communicable diseases; I10 Essential (primary) hypertension; E78.00 Pure hypercholesterolemia, unspecified; Z86.79 Personal history of other diseases of the circulatory system
CPT/HCPCS: 36000; 36415; 71045; 80053; 81001; 82947; 83036; 83605; 85025; 86617; 86618; 87040; 87651; 87798; 96360; 96374; 96375; 99285; G0378; U0003; J2405; A9270-GY

== ENCOUNTER 2023-08-13 15:32 | Emergency (ER) | payer BC ==
[2023-08-13] MEDS ORDERED: Sodium Chloride 0.9% 1000 ML 1,000 ML ONE (16:02)
[2023-08-13] MEDS ORDERED: TYLENOL EXTRA STRENGTH 500 MG ONE (16:02)
--- NOTE | 2023-08-13 16:05 | XRAY ---
Indication: Fever and cough. Comparison: December 26, 2020 Portable apical lordotic chest again demonstrates normal heart and lungs. Bony thorax intact. No new/acute findings.
[2023-08-13] MEDS: TYLENOL EXTRA STRENGTH 500 MG PO STA (16:09)
[2023-08-13] MEDS: Sodium Chloride 0.9% 1000 ML 1,000 ML IV STA (16:09)
[2023-08-13] MEDS ORDERED: Zofran 4 MG/2 ML VIAL ONE (16:11)
[2023-08-13 16:12] LABS: Absolute Neutrophil Ct (ANC) 10.27 x10^3/uL (1.4-6.9); BASOPHIL % 0.2 % (0.0-0.4); Basophil (Absolute #) 0.03 x10^3/uL (0-0.4); Eosinophil % 0.4 % (0.00-5.0); Eosinophil (Absolute #) 0.05 x10^3/uL (0-0.5); Hematocrit 44.9 % (42-50); Hemoglobin 14.6 g/dL (12.5-18.0); IMMATURE GRAN % 0.8 % (0.00-0.4); Lymphocyte (Absolute #) 1.43 x10^3/uL (1.0-4.6); Lymphocytes % 11.2 % (24.0-44.0); Mean Cell Volume 90.9 fL (78-100); Mean Corpuscular Hemoglobin 29.6 pg (26-32); Mean Corpuscular Hgb Concent. 32.5 g/dL (32-36); Mean Platelet Volume 9.8 fL (7.5-11.0); Monocyte (Absolute #) 0.91 x10^3/uL (0.0-1.3); Monocytes % 7.1 % (0.0-12.0); Neutrophil % 80.3 % (36.0-66.0); Platelet Count 180 x10^3/uL (150-450); Red Blood Count 4.94 x10^6/uL (4.1-5.6); Red Cell Distribution Width 12.9 % (11.5-14.0); White Blood Count 12.8 x10^3/uL (4.0-10.5)
[2023-08-13] MEDS: Zofran 4 MG/2 ML VIAL IV ONE (16:12)
[2023-08-13 16:28] LABS: ALBUMIN 3.7 g/dL (3.5-5.0); ANION GAP 12.9 MEQ/L (5-15); BILIRUBIN,TOTAL 0.7 mg/dL (0.2-1.3); Calcium 9.2 mg/dL (8.4-10.2); Creatinine 1 0.85 mg/dL (0.66-1.25); EST GLOMERULAR FILTRATION RATE 101.4 ML/MIN; Potassium 3.9 mmol/L (3.5-5.1); Total Protein 6.6 g/dL (6.3-8.2)
[2023-08-13 16:37] LABS: Appearance Turbid (Clear); Bacteria Moderate /HPF (None Seen); Bilirubin Negative (Negative); Blood Small (Negative); Epithelial Cells Moderate /HPF (None Seen); Glucose, Urine >=1000 mg/dL (Negative); Ketones Negative (Negative); Leukocyte Esterase Small (Negative); Nitrite Negative (Negative); Ph 5.5 (4.6-8.0); Protein,Urine Dip 30 (Negative); RBC 21-50 /HPF (0-5); Specific Gravity >=1.030 (1.005-1.030); Urobilinogen 0.2 mg/dL (0.2); WBC >100 /HPF (0-5)
[2023-08-13 16:39] VITALS: O2SAT 94
[2023-08-13 16:39] LABS: ADD URINE CULTURE? YES (NO); Hyaline Casts 20-50 /LPF (0-2)
[2023-08-13 16:49] LABS: INFLUENZA A NEGATIVE (NEGATIVE); INFLUENZA B NEGATIVE (NEGATIVE); RESPIRATORY SYNCTIAL VIRUS NEGATIVE (NEGATIVE); SARS-CoV-2 Xpert Express NEGATIVE (NEGATIVE)
--- NOTE | 2023-08-13 16:50 | ERPHSYRPT ---
- History of Present Illness Time Seen by Provider: 08/13/23 15:45 Source: patient, family Exam Limitations: no limitations Patient Subjective Stated Complaint: Pt states "I was positive for covid two weeks ago and I have a really high fever this morning." Triage Nursing Assessment: Pt presented alert and oriented X 3, skin pwd. PT ambulates with an upright steady gait, able to speak in clear full sentences. PT in no appaerent respiratory distress. Pt resting comfortable on the bed. Physician History: Patient is a 58-year-old white male who 2 weeks ago tested positive for COVID. This morning he was noted to have a fever 104 at home on arrival in the ER it was 101.5. He has felt weak he has had a cough he has had a severe headache and he has a cough producing green sputum. His reports that he is actually been sick for about 6 weeks ending with the COVID being positive as mentioned 2 weeks ago. Timing/Duration: week(s) (6) Cough Quality/Degree: productive cough, sputum Possible Cause: occasional episodes Modifying Factors: Improves With: coughing Associated Symptoms: fever, chills, chest pain/soreness, cough, muscle aches, nasal drainage, shortness of breath, sore throat Allergies/Adverse Reactions: Penicillins Allergy (Unknown, Verified 12/27/20 02:14) Home Medications: Aspirin 81 gm Chew [Baby Aspirin 81 mg Chew] 81 mg PO QHS 11/06/15 [History] Metformin HCl 500 mg [Glucophage 500 MG] 1,000 mg PO BID 11/06/15 [History] Escitalopram Oxalate [Lexapro] 20 mg PO DAILY 11/10/15 [History] Glucosam/Chond/Collagen/Hyalur [Glucosamine Chondroitin Cap] 1,000 mg PO BID 02/10/16 [History] Lisinopril/Hydrochlorothiazide [Lisinopril-Hctz 20-12.5 mg Tab] 2 tab PO DAILY 02/10/16 [History] Atorvastatin Calcium 40 mg PO QHS 03/26/17 [History] Isosorbide Mononitrate [Isosorbide Mononitrate ER] 60 mg PO DAILY 03/26/17 [History] Metoprolol Succinate 50 mg PO DAILY 03/26/17 [History] Nitroglycerin 0.4 mg SL UD PRN 03/26/17 [History] Ropinirole HCl 0.5 mg PO QHS 03/26/17 [History] Albuterol Sulfate [Proair Hfa] 8.5 gm IH Q6HPRN PRN 06/05/19 [History] Empagliflozin [Jardiance] 25 mg PO QAM 06/05/19 [History] Cholecalciferol (Vitamin D3) [Vitamin D] 1.25 mg PO WEEKLY 09/28/20 [History] Glimepiride 4 mg [Amaryl 4 mg] 4 mg PO DAILY 09/28/20 [History] Insulin Glargine,Hum.rec.anlog [Lantus Solostar] 50 units SQ BID 12/26/20 [History] Amlodipine Besylate 10 mg PO DAILY 12/27/20 [History] Famotidine 20 mg [Pepcid 20 MG] 20 mg PO BID 08/13/23 [History] Semaglutide [Ozempic] 0.5 mg SQ WEEKLY 08/13/23 [History] Hx Tetanus, Diphtheria Vaccination/Date Given: No Hx Influenza Vaccination/Date Given: No Hx Pneumococcal Vaccination/Date Given: No Immunizations Up to Date: No Travel Risk - International Travel Have you traveled outside of the country in past 3 weeks: No - Coronavirus Screening Are you exhibiting any of the following symptoms?: Yes Symptoms: Fever, Cough: New Onset, Vomiting/Diarrhea, Headaches/Body Aches/Fatigue Close contact with a COVID-19 positive Pt in past 14-21 Days: No - Vaccine Status Have you recieved a Covid-19 vaccination: Yes 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 - Vaccination Dates Date of 2cond Vaccination (if applicable): Unknown - Review of Systems Constitutional: Fever, Chills Eyes: No Symptoms Ears, Nose, & Throat: No Symptoms, Nose Discharge, Throat Pain Respiratory: Cough, Dyspnea Cardiac: No Chest Pain, No Edema, No Syncope Abdominal/Gastrointestinal: No Abdominal Pain, No Nausea, No Vomiting, No Diarrhea Genitourinary Symptoms: No Dysuria Musculoskeletal: No Back Pain, No Neck Pain Skin: No Rash Neurological: No Dizziness, No Focal Weakness, No Sensory Changes Psychological: No Symptoms Endocrine: No Symptoms All Other Systems: Reviewed and Negative - Past Medical History Pertinent Past Medical History: Yes Neurological History: No Pertinent History ENT History: No Pertinent History Cardiac History: Angina, Coronary Artery Disease, High Cholesterol, Hypertension Respiratory History: Sleep Apnea Endocrine Medical History: Diabetes Type II Musculoskeletal History: Other GI Medical History: No Pertinent History History: No Pertinent History Psycho-Social History: Anxiety Male Reproductive Disorders: No Pertinent History Other Medical History: chronic joint pain, restless leg syndrome, cellulitis BLE, cardiac artery blockage- no stent placed - Past Surgical History Past Surgical History: Yes Neuro Surgical History: No Pertinent History Cardiac: Cardiac Catheterization Respiratory: No Pertinent History Gastrointestinal: No Pertinent History Genitourinary: No Pertinent History Musculoskeletal: No Pertinent History Male Surgical History: No Pertinent History Other Surgical History: heart catheterization in 2016 in [place] revealed 70% blockage - not stented, left back absess removed - Social History Smoking Status: Never smoker Exposure to second hand smoke: No Drug Use: none Patient Lives Alone: No - Nursing Vital Signs Nursing Vital Signs: Initial Vital Signs Temperature 101.5 F 08/13/23 15:40 Pulse Rate 104 H 08/13/23 15:40 Respiratory Rate 22 08/13/23 15:40 Blood Pressure 170/77 08/13/23 15:40 O2 Sat by Pulse Oximetry 96 08/13/23 15:40 Pain Scale Pain Intensity 2 - Physical Exam General Appearance: mild distress, alert Eye Exam: PERRL/EOMI, eyes nml inspection Ears, Nose, Throat Exam: normal ENT inspection, TMs normal, pharynx normal, moist mucous membranes Neck Exam: normal inspection, non-tender, supple, full range of motion Respiratory Exam: normal breath sounds, diminished breath sounds, crackles/rales, No respiratory distress Cardiovascular Exam: regular rate/rhythm, normal heart sounds Gastrointestinal/Abdomen Exam: soft, No tenderness Back Exam: normal inspection, No CVA tenderness, No vertebral tenderness Extremity Exam: normal inspection, normal range of motion Neurologic Exam: alert, oriented x 3, cooperative, normal mood/affect, sensation nml, No motor deficits Skin Exam: normal color, warm, dry, No rash Lymphatic Exam: No adenopathy SpO2: 94 - Course Nursing assessment & vital signs reviewed: Yes EKG Interpreted by Me: RATE (87), Sinus Rhythm, NORMAL AXIS, NORMAL INTERVALS, NORMAL QRS, Non-specific ST Changes - Radiology Exams Chest X-ray Interpretation: Reviewed by me, Negative Ordered Tests: Active Orders 24 hr Category Date Time Status EKG-ER Only STAT Care 08/13/23 15:45 Active IV Insertion STAT Care 08/13/23 15:45 Active CHEST 1 VIEW (PORTABLE) Stat Exams 08/13/23 15:46 Completed BLOOD CULTURE Stat Lab 08/13/23 16:05 Received CBC W DIFF Stat Lab 08/13/23 15:57 Completed CMP Stat Lab 08/13/23 15:57 Completed CULTURE,SPUTUM Stat Lab 08/13/23 15:52 Ordered CULTURE,URINE Stat Lab 08/13/23 15:52 Received Lactic Acid Stat Lab 08/13/23 15:53 Completed PROCALCITONIN Stat Lab 08/13/23 15:57 Completed UA W/RFX UR CULTURE Stat Lab 08/13/23 15:52 Completed Medication Summary Generic Name Dose Route Start Last Admin Trade Name Cooper PRN Reason Stop Dose Admin Ceftriaxone Sodium/Dextrose 2 g in 50 mls @ 100 mls/hr 08/13/23 16:55 08/13/23 16:59 Rocephin 2 Gm-D5w 50ml Bag IV 08/13/23 17:24 100 mls/hr STAT STA 100 mls/hr Administration Levofloxacin/Dextrose 750 mg in 150 mls @ 100 mls/hr 08/13/23 16:56 08/13/23 17:05 Levofloxacin 750mg/150ml D5w IV 08/13/23 18:25 Not Given STAT STA Discontinued Medications Generic Name Dose Route Start Last Admin Trade Name Cooper PRN Reason Stop Dose Admin Acetaminophen 1,000 mg 08/13/23 16:00 08/13/23 16:09 Acetaminophen 500 Mg Tablet PO 08/13/23 16:01 1,000 mg STAT STA Administration Acetaminophen Confirm 08/13/23 16:02 Acetaminophen 500 Mg Tablet Administered 08/13/23 16:03 Dose 1,000 mg .ROUTE .STK-MED ONE Sodium Chloride 1,000 mls @ 999 mls/hr 08/13/23 15:45 08/13/23 16:09 Sodium Chloride 0.9% 1000 Ml IV 08/13/23 16:45 999 mls/hr .Q1H1M STA Administration Sodium Chloride Confirm 08/13/23 16:02 Sodium Chloride 0.9% 1000 Ml Administered 08/13/23 16:03 Dose 1,000 mls @ ud .ROUTE .STK-MED ONE Ceftriaxone Sodium/Dextrose Confirm 08/13/23 16:58 Rocephin 2 Gm-D5w 50ml Bag Administered 08/13/23 16:59 Dose 2 g in 50 mls @ ud IV .STK-MED ONE Levofloxacin 750 mg 08/13/23 17:05 08/13/23 17:08 Levofloxacin 250 Mg Tab PO 08/13/23 17:06 750 mg STAT ONE Administration Levofloxacin Confirm 08/13/23 17:06 Levofloxacin 250 Mg Tab Administered 08/13/23 17:07 Dose 750 mg .ROUTE .STK-MED ONE Ondansetron HCl 4 mg 08/13/23 16:12 08/13/23 16:12 Ondansetron Hcl 4 Mg/2 Ml Vial IV 08/13/23 16:13 4 mg STAT ONE Administration Ondansetron HCl Confirm 08/13/23 16:11 Ondansetron Hcl 4 Mg/2 Ml Vial Administered 08/13/23 16:12 Dose 4 mg .ROUTE .[facility] ONE Lab/Rad Data: Laboratory Result Diagrams 08/13/23 15:57 08/13/23 15:57 Laboratory Results 08/13/23 08/13/23 08/13/23 Range/Units 16:05 16:05 15:57 WBC (4.0-10.5) x10^3/uL RBC (4.1-5.6) x10^6/uL Hgb (12.5-18.0) g/dL Hct (42-50) % MCV (78-100) fL MCH (26-32) pg MCHC (32-36) g/dL RDW (11.5-14.0) % Plt Count (150-450) x10^3/uL MPV (7.5-11.0) fL Gran % (36.0-66.0) % Immature Gran % (Auto) (0.00-0.4) % Nucleat RBC Rel Count (0.00-0.1) % Eos # (Auto) (0-0.5) x10^3/uL Immature Gran # (Auto) (0.00-0.03) x10^3u/L Absolute Lymphs (auto) (1.0-4.6) x10^3/uL Absolute Monos (auto) (0.0-1.3) x10^3/uL Absolute Nucleated RBC (0.00-0.01) x10^3u/L Lymphocytes % (24.0-44.0) % Monocytes % (0.0-12.0) % Eosinophils % (0.00-5.0) % Basophils % (0.0-0.4) % Absolute Granulocytes (1.4-6.9) x10^3/uL Basophils # (0-0.4) x10^3/uL Sodium (137-145) mmol/L Potassium (3.5-5.1) mmol/L Chloride (98-107) mmol/L Carbon Dioxide (22-30) mmol/L Anion Gap (5-15) MEQ/L BUN (9-20) mg/dL Creatinine (0.66-1.25) mg/dL Estimated GFR ML/MIN Glucose (74-106) mg/dL Lactic Acid (0.4-2.0) Calcium (8.4-10.2) mg/dL Total Bilirubin (0.2-1.3) mg/dL AST (17-59) U/L ALT (0-50) U/L Alkaline Phosphatase (38-126) U/L Serum Total Protein (6.3-8.2) g/dL Albumin (3.5-5.0) g/dL Procalcitonin 0.140 H (0.030-0.080) ng/mL Urine Color (Yellow) Urine Appearance (Clear) Urine pH (4.6-8.0) Ur Specific [place] (1.005-1.030) Urine Protein (Negative) Urine Glucose (UA) (Negative) mg/dL Urine Ketones (Negative) Urine Blood (Negative) Urine Nitrite (Negative) Urine Bilirubin (Negative) Urine Urobilinogen (0.2) mg/dL Ur Leukocyte Esterase (Negative) U Hyaline Cast (Auto) (0-2) /LPF Urine Microscopic RBC (0-5) /HPF Urine Microscopic WBC (0-5) /HPF Ur Epithelial Cells (None Seen) /HPF Urine Bacteria (None Seen) /HPF Urine Culture Reflexed (NO) Influenza Type A Ag NEGATIVE (NEGATIVE) Influenza Type B Ag NEGATIVE (NEGATIVE) RSV (PCR) NEGATIVE (NEGATIVE) SARS-CoV-2 (PCR) NEGATIVE (NEGATIVE) Group A Strep Antibody NOT DETECTED (NEGATIVE) 02/26/24 02/26/24 02/26/24 Range/Units 15:57 15:57 15:53 WBC 12.8 H (4.0-10.5) x10^3/uL RBC 4.94 (4.1-5.6) x10^6/uL Hgb 14.6 (12.5-18.0) g/dL Hct 44.9 (42-50) % MCV 90.9 (78-100) fL MCH 29.6 (26-32) pg MCHC 32.5 (32-36) g/dL RDW 12.9 (11.5-14.0) % Plt Count 180 (150-450) x10^3/uL MPV 9.8 (7.5-11.0) fL Gran % 80.3 H (36.0-66.0) % Immature Gran % (Auto) 0.8 H (0.00-0.4) % Nucleat RBC Rel Count 0.0 (0.00-0.1) % Eos # (Auto) 0.05 (0-0.5) x10^3/uL Immature Gran # (Auto) 0.10 H (0.00-0.03) x10^3u/L Absolute Lymphs (auto) 1.43 (1.0-4.6) x10^3/uL Absolute Monos (auto) 0.91 (0.0-1.3) x10^3/uL Absolute Nucleated RBC 0.00 (0.00-0.01) x10^3u/L Lymphocytes % 11.2 L (24.0-44.0) % Monocytes % 7.1 (0.0-12.0) % Eosinophils % 0.4 (0.00-5.0) % Basophils % 0.2 (0.0-0.4) % Absolute Granulocytes 10.27 H (1.4-6.9) x10^3/uL Basophils # 0.03 (0-0.4) x10^3/uL Sodium 135 L (137-145) mmol/L Potassium 3.9 (3.5-5.1) mmol/L Chloride 101 (98-107) mmol/L Carbon Dioxide 24 (22-30) mmol/L Anion Gap 12.9 (5-15) MEQ/L BUN 12 (9-20) mg/dL Creatinine 0.85 (0.66-1.25) mg/dL Estimated GFR 101.4 ML/MIN Glucose 281 H (74-106) mg/dL Lactic Acid 2.9 H (0.4-2.0) Calcium 9.2 (8.4-10.2) mg/dL Total Bilirubin 0.70 (0.2-1.3) mg/dL AST 17 (17-59) U/L ALT 23 (0-50) U/L Alkaline Phosphatase 95 (38-126) U/L Serum Total Protein 6.6 (6.3-8.2) g/dL Albumin 3.7 (3.5-5.0) g/dL Procalcitonin (0.030-0.080) ng/mL Urine Color (Yellow) Urine Appearance (Clear) Urine pH (4.6-8.0) Ur Specific [place] (1.005-1.030) Urine Protein (Negative) Urine Glucose (UA) (Negative) mg/dL Urine Ketones (Negative) Urine Blood (Negative) Urine Nitrite (Negative) Urine Bilirubin (Negative) Urine Urobilinogen (0.2) mg/dL Ur Leukocyte Esterase (Negative) U Hyaline Cast (Auto) (0-2) /LPF Urine Microscopic RBC (0-5) /HPF Urine Microscopic WBC (0-5) /HPF Ur Epithelial Cells (None Seen) /HPF Urine Bacteria (None Seen) /HPF Urine Culture Reflexed (NO) Influenza Type A Ag (NEGATIVE) Influenza Type B Ag (NEGATIVE) RSV (PCR) (NEGATIVE) SARS-CoV-2 (PCR) (NEGATIVE) Group A Strep Antibody (NEGATIVE) 08/13/23 Range/Units 15:52 WBC (4.0-10.5) x10^3/uL RBC (4.1-5.6) x10^6/uL Hgb (12.5-18.0) g/dL Hct (42-50) % MCV (78-100) fL MCH (26-32) pg MCHC (32-36) g/dL RDW (11.5-14.0) % Plt Count (150-450) x10^3/uL MPV (7.5-11.0) fL Gran % (36.0-66.0) % Immature Gran % (Auto) (0.00-0.4) % Nucleat RBC Rel Count (0.00-0.1) % Eos # (Auto) (0-0.5) x10^3/uL Immature Gran # (Auto) (0.00-0.03) x10^3u/L Absolute Lymphs (auto) (1.0-4.6) x10^3/uL Absolute Monos (auto) (0.0-1.3) x10^3/uL Absolute Nucleated RBC (0.00-0.01) x10^3u/L Lymphocytes % (24.0-44.0) % Monocytes % (0.0-12.0) % Eosinophils % (0.00-5.0) % Basophils % (0.0-0.4) % Absolute Granulocytes (1.4-6.9) x10^3/uL Basophils # (0-0.4) x10^3/uL Sodium (137-145) mmol/L Potassium (3.5-5.1) mmol/L Chloride (98-107) mmol/L Carbon Dioxide (22-30) mmol/L Anion Gap (5-15) MEQ/L BUN (9-20) mg/dL Creatinine (0.66-1.25) mg/dL Estimated GFR ML/MIN Glucose (74-106) mg/dL Lactic Acid (0.4-2.0) Calcium (8.4-10.2) mg/dL Total Bilirubin (0.2-1.3) mg/dL AST (17-59) U/L ALT (0-50) U/L Alkaline Phosphatase (38-126) U/L Serum Total Protein (6.3-8.2) g/dL Albumin (3.5-5.0) g/dL Procalcitonin (0.030-0.080) ng/mL Urine Color Yellow (Yellow) Urine Appearance Turbid A (Clear) Urine pH 5.5 (4.6-8.0) Ur Specific [place] >=1.030 A (1.005-1.030) Urine Protein 30 (Negative) Urine Glucose (UA) >=1000 A (Negative) mg/dL Urine Ketones Negative (Negative) Urine Blood Small A (Negative) Urine Nitrite Negative (Negative) Urine Bilirubin Negative (Negative) Urine Urobilinogen 0.2 (0.2) mg/dL Ur Leukocyte Esterase Small A (Negative) U Hyaline Cast (Auto) 20-50 (0-2) /LPF Urine Microscopic RBC 21-50 A (0-5) /HPF Urine Microscopic WBC >100 A (0-5) /HPF Ur Epithelial Cells Moderate A (None Seen) /HPF Urine Bacteria Moderate A (None Seen) /HPF Urine Culture Reflexed YES (NO) Influenza Type A Ag (NEGATIVE) Influenza Type B Ag (NEGATIVE) RSV (PCR) (NEGATIVE) SARS-CoV-2 (PCR) (NEGATIVE) Group A Strep Antibody (NEGATIVE) - Progress Progress: unchanged Air Movement: good Blood Culture(s) Obtained: Yes Antibiotics given: Yes Medical Desision Making - Independent Historian Additional History obtained from: Spouse - Diagnostic Testing Diagnostic test were ordered, analyzed, and reviewed by me: Yes Radiological Interpretation: Reviewed by me - Risk of complications Low Risk: Low risk of morbidity from additional dx testing or treatment - Departure Departure Disposition: Home Clinical Impression: Urinary tract infection Condition: Stable Critical Care Time: No Referrals: GERALDINE PEARSON MD [Primary Care Provider] - Follow up/PCP as directed Instructions: Urinary Tract Infection, Adult (DC) Prescriptions: Cephalexin Mh 500 mg [Keflex 500 mg] 500 mg PO QID #40 cap Levofloxacin [Levaquin 500 MG Tablet] 500 mg PO DAILY 10 Days #10 tablet
[2023-08-13] MEDS ORDERED: ROCEPHIN 2 Gm-D5w 50ML BAG** 2 G/50 ML IVPB IV ONE (16:58)
[2023-08-13] MEDS: ROCEPHIN 2 Gm-D5w 50ML BAG** 2 G/50 ML IVPB IV STA (16:59)
[2023-08-13] MEDS: LEVOFLOXACIN 750MG/150ML D5W 750 MG/150 ML BAG IV STA (17:05)
[2023-08-13] MEDS ORDERED: Levofloxacin 250MG Tablet ONE (17:06)
[2023-08-13] MEDS: Levofloxacin 250MG Tablet PO ONE (17:08)
[2023-08-13 17:17] VITALS: BP 118/58; PULSE 84; RESP 18; TEMP 97.4
== END 2023-08-13 17:23 | disposition home or self-care (01) ==
LOC: ED 15:32
DX: N39.0 Urinary tract infection, site not specified (principal); R50.9 Fever, unspecified; R53.1 Weakness; R51.9 Headache, unspecified; R05.9 Cough, unspecified; E78.5 Hyperlipidemia, unspecified; I10 Essential (primary) hypertension; E11.9 Type 2 diabetes mellitus without complications; Z79.84 Long term (current) use of oral hypoglycemic drugs; Z79.4 Long term (current) use of insulin; Z79.85 Long-term (current) use of injectable non-insulin antidiabetic drugs; Z79.899 Other long term (current) drug therapy; Z86.16 Personal history of COVID-19
CPT/HCPCS: 0241U; 36000; 36415; 71045; 80053; 81001; 83605; 84145; 85025; 87040; 87086; 87651; 93005; 96374; 99284; J0696; J2405; A9270-GY